=== PATIENT | female | born 1935 | race Caucasian/White ===

== ENCOUNTER 2016-12-25 18:54 | Emergency (ER) | payer MEDICARE, OTHER ==
[2016-12-25 19:47] VITALS: BP 146/84; O2SAT 96
--- NOTE | 2016-12-25 20:04 | ERPHSYRPT ---
- History of Present Illness Time Seen by Provider: 12/25/16 19:56 Source: patient Exam Limitations: no limitations Physician History: The patient is an 81-year-old female with a friend complaining that her cat scratched her lower left leg 3 or 4 days ago and she thinks she was bitten by a spider early this morning near the same area that the cat scratched her. The area is red and warm. She also felt a little chilled today. She doesn't feel well area her past medical history is significant for hypertension and high cholesterol. Method of Injury: other (cat scratch and spider bite) Occurred: days ago (4) Quality: other (red and warm) Severity of Pain-Max: mild Severity of Pain-Current: mild Lower Extremities Pain: hip: left Modifying Factors: Improves With: nothing Associated Symptoms: none Allergies/Adverse Reactions: amoxicillin [Amoxicillin] Allergy (Intermediate, Verified 10/15/15 16:30) facial swelling and flushed metronidazole [From Flagyl] Allergy (Unknown, Verified 10/15/15 18:55) cant rememer Penicillins Allergy (Unknown, Verified 10/15/15 18:55) cant remember Sulfa (Sulfonamide Antibiotics) Allergy (Unknown, Verified 10/15/15 18:55) cant rememeber Home Medications: Albuterol 8 gm Mdi Hfa [Ventolin Hfa MDI] 8 gm IH Q12H PRN PRN 01/04/14 [ History] Aspirin 81 gm Chew [Baby Aspirin 81 mg Chew] 81 mg PO HS 01/04/14 [History ] Guaifenesin [Mucinex] 600 mg PO DAILY PRN PRN 01/04/14 [History] Lovastatin 40 mg PO HS 01/04/14 [History] Meclizine HCl 25 mg [Antivert 25 mg] 25 mg PO DAILY PRN PRN 01/04/14 [ History] Phenylephrine HCl [Nasal [place]] 30 ml NS DAILY PRN PRN 01/04/14 [History] Trimethoprim 100 mg PO HS 01/04/14 [History] Losartan Potassium [Cozaar] 25 mg PO BID 10/15/15 [History] Hx Tetanus, Diphtheria Vaccination/Date Given: Yes Hx Influenza Vaccination/Date Given: No Hx Pneumococcal Vaccination/Date Given: Yes - Review of Systems Constitutional: Chills, No Fever Eyes: No Symptoms Ears, Nose, & Throat: No Symptoms Respiratory: No Cough, No Dyspnea Cardiac: No Chest Pain, No Edema, No Syncope Abdominal/Gastrointestinal: No Abdominal Pain, No Nausea, No Vomiting, No Diarrhea Genitourinary Symptoms: No Dysuria Musculoskeletal: No Back Pain, No Neck Pain Skin: Rash, Skin Lesions Neurological: No Dizziness, No Focal Weakness, No Sensory Changes Psychological: No Symptoms Endocrine: No Symptoms Hematologic/Lymphatic: No Symptoms Immunological/Allergic: No Symptoms All Other Systems: Reviewed and Negative - Past Medical History Pertinent Past Medical History: Yes Neurological History: No Pertinent History ENT History: Cataracts Cardiac History: High Cholesterol, Hypertension, Other Respiratory History: Asthma Endocrine Medical History: No Pertinent History Musculoskeletal History: No Pertinent History GI Medical History: No Pertinent History History: Other Psycho-Social History: No Pertinent History Female Reproductive Disorders: Fibroids Other Medical History: PERICARDICECTOMY 2005; cdiff 09/2015 - Past Surgical History Past Surgical History: Yes Neuro Surgical History: No Pertinent History Cardiac: Cardiac Catheterization, Cardiac Stent Gastrointestinal: No Pertinent History Genitourinary: No Pertinent History Musculoskeletal: No Pertinent History Female Surgical History: Hysterectomy Other Surgical History: pericardectomy. bilateral cataracts - Social History Smoking Status: Never smoker Exposure to second hand smoke: Yes Drug Use: none Patient Lives Alone: No - Nursing Vital Signs Nursing Vital Signs: Initial Vital Signs Temperature 98.7 F Temperature Source Oral Pulse Rate 88 Respiratory Rate 18 Blood Pressure [Right Arm] 146/84 Pain Intensity 0 - Physical Exam General Appearance: alert Eyes, Ears, Nose, Throat Exam: moist mucous membranes Neck Exam: non-tender, supple Cardiovascular/Respiratory Exam: chest non-tender, normal breath sounds, regular rate/rhythm, no respiratory distress Gastrointestinal/Abdominal Exam: non-tender, guarding Back Exam: normal inspection, No vertebral tenderness Hips Exam: bilateral: non-tender Legs Exam: right leg: non-tender, normal inspection, left leg: other (warmth, erythema, 2 healing superficial scratches to anterior distal lower leg.) Knees Exam: bilateral knee: non-tender Ankle Exam: bilateral ankle: non-tender Foot Exam: bilateral foot: non-tender Neuro/Tendon Exam: normal sensation, normal motor functions Mental Status Exam: alert, oriented x 3, cooperative Skin Exam: rash SpO2 Interpretation: normal SpO2: 96 Oxygen Delivery: Room Air - Departure Time of Disposition: 20:08 Departure Disposition: Home Clinical Impression: Cellulitis Condition: Stable Critical Care Time: No Additional Instructions: You have to cat scratches on her left leg with surrounding erythema and warmth consistent with cellulitis and you also have a possible spider bite in the same region. Take doxycycline 100 mg twice a day for 7 days. Follow-up if there is no improvement in 1-2 days. Prescriptions: Doxycycline Hyclate [Vibramycin] 1 cap PO BID #14 capsule
[2016-12-25] MEDS ORDERED: Vibramycin 100 MG PO ONE (20:28)
[2016-12-25] MEDS ORDERED: Vibramycin 100 MG ONE (20:30)
[2016-12-25 20:46] VITALS: PULSE 92
== END 2016-12-25 20:46 | disposition home or self-care (01) ==
LOC: ED 18:54
DX: L03.116 Cellulitis of left lower limb (principal); S80.812A Abrasion, left lower leg, initial encounter; W55.03XA Scratched by cat, initial encounter; I10 Essential (primary) hypertension; E78.00 Pure hypercholesterolemia, unspecified; Z79.899 Other long term (current) drug therapy
CPT/HCPCS: 99283; A9270-GY

== ENCOUNTER 2017-01-01 10:27 | Observation (INO) | payer MEDICARE, OTHER ==
[2017-01-01 11:15] LABS: Mean Corpuscular Hemoglobin 29.9 pg (26-32); Platelet Count 182 K/mm3 (150-450); Red Blood Count 4.11 M/mm3 (4.1-5.4); Red Cell Distribution Width 13.1 % (11.5-14.0); White Blood Count 5.9 K/mm3 (4.0-10.5)
[2017-01-01] MEDS ORDERED: Sodium Chloride 0.9% 500 ML 500 ML IV SCH (11:30)
[2017-01-01 11:35] LABS: ALBUMIN 3.8 g/dL (3.4-5.0); ANION GAP 14.2 MEQ/L (5-15); BILIRUBIN,TOTAL 0.5 mg/dL (0.2-1.0); Carbon Dioxide 25.3 mEq/L (21-32); Potassium 3.9 mEq/L (3.5-5.1); Total Protein 7.3 gm/dL (6.4-8.2)
[2017-01-01] MEDS: TYLENOL 325 MG PO PRN ×2 (11:36→19:45)
[2017-01-01 11:44] LABS: BAND 1 % (0.0-2.0); Eosinophil 3 % (0.00-3.0); Total Cells Counted 100
[2017-01-01 11:45] LABS: Platelet Estimate NORMAL (NORMAL); Toxic Granulation 1+
[2017-01-01] MEDS: PROTONIX 40 MG IV IV SCH (12:15)
[2017-01-01] MEDS: Zofran 4 MG/2 ML VIAL IV PRN (12:15)
--- NOTE | 2017-01-01 12:16 | XRAY ---
Indication: Abdominal pain and weakness. Fever. Comparison: None KUB demonstrates moderate scattered colonic fecal debris throughout. No focal bowel dilatation, obstruction, or free air. Solid organs and osseous structures unremarkable. Impression: Fecal stasis without obstruction.
[2017-01-01] MEDS ORDERED: Dextrose 5% -0.45 NaCl 1000 ML 1,000 ML IV SCH (12:30)
[2017-01-01 14:13] LABS: Bacteria RARE /HPF (NEGATIVE); Bilirubin NEGATIVE (NEGATIVE); Blood 50 Ery/ul (0-5); COMPLETE URINE MICROSCOPIC? YES; Collection Type VOID; Epithelial Cells RARE /HPF (FEW); Glucose NEGATIVE (NEGATIVE); Leukocyte Esterase TRACE (NEGATIVE); WBC 0-2 /HPF (0-5)
[2017-01-01] MEDS ORDERED: Mucinex 600MG ER Tabs PO PRN (17:03)
[2017-01-01] MEDS ORDERED: ANTIVERT 25 MG PO PRN (17:03)
[2017-01-01] MEDS ORDERED: Ventolin Hfa MDI IH PRN (17:03)
[2017-01-01] MEDS ORDERED: PROVENTIL COMMON CANISTER IH PRN (17:08)
[2017-01-01] MEDS: Colace 100 MG PO PRN (19:45)
[2017-01-01] MEDS ORDERED: NON-FORMULARY ITEM (Lovastatin [Lovastatin] 40 MG) PO SCH (22:00)
[2017-01-01] MEDS ORDERED: BABY ASPIRIN 81 MG CHEW PO SCH (22:00)
[2017-01-01] MEDS ORDERED: ECOTRIN 81 MG PO SCH (22:00)
[2017-01-01] MEDS ORDERED: ZOCOR 20MG PO SCH (22:00)
[2017-01-02] MEDS: Colace 100 MG PO PRN (09:02)
[2017-01-02] MEDS: PROTONIX 40 MG IV IV SCH (09:02)
[2017-01-02] MEDS: Zofran 4 MG/2 ML VIAL IV PRN (09:04)
--- NOTE | 2017-01-02 09:05 | PCM.DCORD ---
- Discharge Discharge Date: 01/02/17 Disposition: Home, Self-Care Condition: Fair Prescriptions: New Docusate Sodium 100 mg [Colace 100 MG] 100 mg PO BID PRN PRN #60 capsule PRN Reason: Constipation Losartan Potassium [Cozaar] 25 mg PO QHS #30 tablet PANTOPRAZOLE 40 mg Tablet [Protonix 40MG Tablet] 40 mg PO QAM #30 tab Ondansetron [Zofran Odt] 4 mg PO Q8H PRN #10 tab.rapdis PRN Reason: Nausea Continue Meclizine HCl 25 mg [Antivert 25 mg] 12.5 mg PO DAILY PRN PRN PRN Reason: Dizziness Guaifenesin [Mucinex] 600 mg PO DAILY PRN PRN PRN Reason: Allergies Albuterol 8 gm Mdi Hfa [Ventolin Hfa MDI] 8 gm IH Q12H PRN PRN PRN Reason: Allergies Lovastatin 40 mg PO HS Changed Aspirin 81 gm Chew [Baby Aspirin 81 mg Chew] 81 mg PO QAM #30 tab.chew Discontinued Losartan Potassium [Cozaar] 25 mg PO BID Follow up with: MARGUERITE JOHNSTON [Primary Care Provider] - 1 Week
--- NOTE | 2017-01-02 09:55 | SSS ---
ADMISSION DIAGNOSES: 1) Nausea. 2) Epigastric pain. DISCHARGE DIAGNOSES: 1) NAUSEA. 2) EPIGASTRIC PAIN. 3) CONSTIPATION. HISTORY OF PRESENT ILLNESS: This is an 81 year old patient who presented to my clinic for the first time. In the past she had seen Dr. Arndt but stated that she plans to change to me as her primary care provider. She stated that she had a headache the night before and was feeling weak. She stated that a couple of times that she just felt awful. She had taken some Tylenol for a headache and reported that was better. She reports she has had headaches in the past but not as bad as this one. She also reports that she had nausea but no vomiting. She had eaten a piece of toast just that morning. She reports she has been urinating well and drinking quite a bit of water. She lives alone and had to have a friend bring her this morning. She denies any diarrhea but has some cramping in her abdomen. She recently had been on doxycycline for left lower leg cellulitis that is much better. She reports she stopped taking antibiotics on Friday and had three tablets left. She reports that she had some nausea since Friday and it got worse the night before her admission. She reports that overnight she felt better and that she has been able to drink some fluids and have one stool. She thinks she may be constipated but she took an Imodium on Friday when her stomach was gurgling and on Friday took some Pepto-Bismol. REVIEW OF SYSTEMS: She denies any fever. No cough. No rhinorrhea. She has some mild epigastric pain. No lower extremity edema. She reports the redness on her left lower leg where the cellulitis is has gotten better. No dysuria. PAST MEDICAL HISTORY: She reports a history of sepsis and Clostridium difficile. History of pericardectomy in 2005, hypertension. Her floorhand is Dr. Mitchell. PAST SURGICAL HISTORY: The pericardectomy and hysterectomy. MEDICATIONS: Albuterol 2 puffs every four hours as needed, Mucinex 600 mg p.o. daily as needed, losartan 25 mg p.o. q.h.s., lovastatin 40 mg p.o. q.h.s., meclizine 12.5 mg daily as needed for dizziness. ALLERGIES: AMOXICILLIN, CLINDAMYCIN, FLAGYL, PHENERGAN, SULFA. SOCIAL HISTORY: She lives alone. No tobacco use. FAMILY HISTORY: Noncontributory. PHYSICAL EXAMINATION: VITAL SIGNS: Temperature current 98.0F, temperature max 98.9F, heart rate 62 to 81, respiratory rate 17 to 20, blood pressure 115 to 134 over 59 to 64, weight 69.5 kg. Oxygen saturation 93 to 97% on room air. GENERAL: The patient is a pleasant talkative lady lying in bed and in no acute distress. CVS: She has a regular rate and rhythm. No murmurs, gallops or rubs are appreciated. CHEST: Clear to auscultation bilaterally. No crackles or wheezes. ABDOMEN: Mild epigastric tenderness. Normal bowel sounds. Soft. No guarding. No rigidity. EXTREMITIES: No clubbing, cyanosis or edema. Her left lower leg has a small scab with very minimal erythema approximately 2 mm around the scab. No induration and no drainage. LABORATORY DATA AND TESTS: Her white blood cell count was normal at 5.9. Sodium 134, BUN 21. Amylase and lipase within normal limits. UA was negative. She had a KUB that was read as fecal stasis without obstruction. HOSPITAL COURSE: 1) NAUSEA: She was getting Zofran as needed for the nausea and given a bolus of IV fluids and then maintenance fluid. She has been able to take clear liquids and states she is feeling better although not 100%. She is agreeable to going home on proton pump inhibitor and Zofran as needed for nausea. She was given Protonix 40 mg IV daily here and Zofran IV as needed here. She did have a stool yesterday. 2) EPIGASTRIC PAIN: She may have some gastritis. I have asked her to change her aspirin to 81 mg in the morning instead of taking it in the evening before bed and she agreeable to this, will also add the proton pump inhibitor. She reports she has had colonoscopies in the past and is not interested in invasive procedures at this time. 3) CONSTIPATION: Will continue Colace as needed. DISPOSITION: The patient is to follow up with me in the clinic this coming week. DISCHARGE MEDICATIONS: Docusate 100 mg p.o. b.i.d. as needed, losartan 25 mg p.o. q.h.s., pantoprazole 40 mg p.o. q.a.m., Zofran 4 mg p.o. every 8 hours as needed, meclizine 12.5 mg daily as needed, guaifenesin 600 mg p.o. daily, Albuterol every 12 hours as needed, lovastatin 40 mg p.o. q.h.s., aspirin 81 mg p.o. q.a.m.
[2017-01-02 10:46] VITALS: BP 177/72; PULSE 68; O2SAT 94
== END 2017-01-02 11:00 | disposition home or self-care (01) ==
LOC: MED SURG 10:28
PROVIDERS: ADMIT Internal Medicine; ATTEND Internal Medicine
DX: R11.0 Nausea (principal); R10.13 Epigastric pain; K59.00 Constipation, unspecified; I10 Essential (primary) hypertension; Z79.899 Other long term (current) drug therapy
CPT/HCPCS: 36415; 74000; 80053; 81000; 82150; 83690; 85025; 93005; G0378; J2405; A9270-GY

== ENCOUNTER 2019-05-07 13:30 | Observation (INO) | payer MEDICARE, OTHER ==
[2019-05-07] MEDS ORDERED: Sodium Chloride 0.9% 1000 ML 1,000 ML IV STA (14:47)
[2019-05-07] MEDS ORDERED: Zofran 4 MG/2 ML VIAL IV ONE (14:47)
[2019-05-07] MEDS ORDERED: Sodium Chloride 0.9% 1000 ML 1,000 ML ONE ×2 (14:52→20:46)
[2019-05-07] MEDS ORDERED: Zofran 4 MG/2 ML VIAL ONE (14:52)
[2019-05-07 15:50] LABS: Absolute Neutrophil Ct (ANC) 10.04 (1.4-6.9); BASOPHIL % 0.1 % (0.0-0.4); Basophil (Absolute #) 0.01 (0-0.4); Eosinophil % 0.1 % (0.00-5.0); Eosinophil (Absolute #) 0.01 (0-0.5); Hematocrit 35.6 % (35-47); Hemoglobin 11.8 gm/dl (12.0-16.0); Lymphocyte (Absolute #) 0.67 (1.0-4.6); Lymphocytes % 5.9 % (24.0-44.0); Mean Cell Volume 92.2 fl (78-100); Mean Corpuscular Hgb Concent. 33.1 g/dl (32-36); Mean Platelet Volume 10.5 fl (6-9.5); Monocyte (Absolute #) 0.58 (0.0-1.3); Monocytes % 5.1 % (0.0-12.0); Neutrophil % 88.8 % (36.0-66.0); Platelet Count 210 K/mm3 (150-450); Red Blood Count 3.86 M/mm3 (4.1-5.4); Red Cell Distribution Width 13.1 % (11.5-14.0); White Blood Count 11.3 K/mm3 (4.0-10.5)
--- NOTE | 2019-05-07 15:51 | ERPHSYRPT ---
- History of Present Illness Time Seen by Provider: 05/07/19 13:43 Historian: patient Exam Limitations: no limitations Patient Subjective Stated Complaint: "belly pains that come and go. it hurts really bad when it comes on. Also lots of liquid stools today. hx cdiff." Triage Nursing Assessment: pt to ED from [facility] via wheelchair. assisted into gown and to bed. pt ambulates with assist x1. BSC placed in room for frequent bathroom visits. AxOx3 and communcaites regularly. skin is warm pink and dry. lung sounds clear and equal bilat. heart sounds clear. bowel sounds in all 4 quads. LBM multiple today, all "liquid." hx cdiff 2015. denies nausea, last episode emesis 0630 this am. Pt also states new cat bite to L lower arm that occurred Fri morning. pt states dressing needs changed today. pt has kept area clean and dry and applied abx ointment since Fri. Physician History: This's a 84 yr old pt. presenting to the ED with multiple cmplaints 1) Vomiting, diarrhoea and abdominal cramping x 1 day - states she ate frozen chilli yesterday, following which pt. developed vomiting and diarrhoea. States she has vomited and has had loose watery stools innumerable times . Denies blood in vomitus or stools. states she has abdominal cramping- relieved with diarrhoea. - Pt. states she lives by herself and has not had anything to eat or drink all day - Is not on blood thinners - denies any urinary symptoms 2) Rose bite on her right ankle last friday - states she had a cat bite a few months ago and was placed on clindamycin which gave her c.diff and she was off work for several months, hence she got scared and did not seek medical care. 3) Reports she fell and Timing/Duration: yesterday Activities at Onset: none Quality: other (cramping) Abdominal Pain Onset Location: suprapubic Pain Radiation: no radiation Severity of Pain-Max: none Severity of Pain-Current: none Modifying Factors: Improves With: defecating Associated Symptoms: weakness Previous symptoms: no prior history Allergies/Adverse Reactions: amoxicillin [Amoxicillin] Allergy (Intermediate, Verified 05/07/19 13:53) facial swelling and flushed promethazine [From Phenergan] Allergy (Mild, Verified 05/07/19 17:39) metronidazole [From Flagyl] Allergy (Unknown, Verified 05/07/19 13:53) cant rememer Penicillins Allergy (Unknown, Verified 05/07/19 13:53) cant remember Sulfa (Sulfonamide Antibiotics) Allergy (Unknown, Verified 05/07/19 13:53) cant rememeber Home Medications: Lovastatin 40 mg PO HS 01/04/14 [History] Acetaminophen 500 mg [Tylenol Extra Strength 500 mg] 500 mg PO Q4H PRN PRN 05/07/19 [History] Losartan Potassium [Cozaar] 25 mg PO BID 05/07/19 [History] Sodium Chloride/Sod Bicarb [Nasa Mist Saline [place]] 1 spray INTRANASAL DAILY [History] Hx Tetanus, Diphtheria Vaccination/Date Given: Yes Hx Influenza Vaccination/Date Given: Yes Hx Pneumococcal Vaccination/Date Given: Yes Immunizations Up to Date: Yes - Review of Systems Constitutional: Weakness Eyes: No Symptoms Ears, Nose, & Throat: No Symptoms Respiratory: No Symptoms Cardiac: No Symptoms Abdominal/Gastrointestinal: Vomiting, Diarrhea, Appetite Changes Genitourinary Symptoms: No Symptoms Musculoskeletal: No Symptoms Skin: Other (cat bite right ankle) Neurological: No Symptoms Psychological: No Symptoms Endocrine: No Symptoms Hematologic/Lymphatic: No Symptoms Immunological/Allergic: No Symptoms All Other Systems: Reviewed and Negative - Past Medical History Pertinent Past Medical History: Yes Neurological History: No Pertinent History ENT History: Cataracts Cardiac History: High Cholesterol, Hypertension, Other Respiratory History: Asthma Endocrine Medical History: No Pertinent History Musculoskeletal History: No Pertinent History GI Medical History: No Pertinent History History: Other Psycho-Social History: No Pertinent History Female Reproductive Disorders: Fibroids Other Medical History: PERICARDICECTOMY 2005; cdiff 09/2015 - Past Surgical History Past Surgical History: Yes Neuro Surgical History: No Pertinent History Cardiac: Cardiac Catheterization, Cardiac Stent Gastrointestinal: No Pertinent History Genitourinary: No Pertinent History Musculoskeletal: No Pertinent History Female Surgical History: Hysterectomy Other Surgical History: pericardectomy. bilateral cataracts - Social History Smoking Status: Never smoker Exposure to second hand smoke: No Drug Use: none Patient Lives Alone: Yes - Female History Hx Last Menstrual Period: post menopausal - Nursing Vital Signs Nursing Vital Signs: Initial Vital Signs Temperature 98.1 F 05/07/19 13:38 Pulse Rate 81 05/07/19 13:38 Respiratory Rate 22 05/07/19 13:38 Blood Pressure 166/76 05/07/19 13:38 O2 Sat by Pulse Oximetry 98 05/07/19 13:38 Pain Scale Pain Intensity 5 - Physical Exam General Appearance: no apparent distress Eye Exam: PERRL/EOMI Ears, Nose, Throat Exam: normal ENT inspection Neck Exam: normal inspection Respiratory Exam: normal breath sounds Cardiovascular Exam: regular rate/rhythm Gastrointestinal/Abdomen Exam: soft, normal bowel sounds, No tenderness, No distention, No mass Pelvic Exam: not done Rectal Exam: deferred Back Exam: normal inspection Extremity Exam: penetrations (cat bite [place] with mild erythema) Neurologic Exam: alert, oriented x 3, cooperative, condenser winder II-XII nml as tested, normal mood/affect, nml station & gait Skin Exam: rash, abrasion (on right arm from fall) Lymphatic Exam: No adenopathy SpO2 Interpretation: normal SpO2: 95 O2 Delivery: Room Air Ordered Tests: Active Orders 24 hr Category Date Time Status Code Status Order ROUTINE Care 05/07/19 17:02 Active IV Care Q6H Care 05/07/19 17:02 Active IV Insertion STAT Care 05/07/19 14:[address] in Observation ROUTINE Care 05/07/19 17:02 Active CBC W DIFF Stat Lab 05/07/19 15:45 Completed CMP Stat Lab 05/07/19 15:45 Completed Transfer Order Routine Transfer 05/07/19 Completed Medication Summary Generic Name Dose Route Start Last Admin Trade Name Freq PRN Reason Stop Dose Admin Acetaminophen 650 mg 05/07/19 17:36 Tylenol 325 Mg PO 06/06/19 17:35 Q6H PRN PRN PAIN Acetaminophen 500 mg 05/07/19 19:43 Tylenol Extra Strength 500 Mg PO 06/06/19 19:42 Q4HPRN PRN pain/fever Losartan Potassium 25 mg 05/07/19 22:00 Cozaar 50 Mg PO 06/06/19 21:59 BID ZION Discontinued Medications Generic Name Dose Route Start Last Admin Trade Name Freq PRN Reason Stop Dose Admin Sodium Chloride 1,000 mls @ 999 mls/hr 05/07/19 14:47 05/07/19 16:21 Sodium Chloride 0.9% 1000 Ml IV 05/07/19 15:47 Infused .Q1H1M STA Infusion Sodium Chloride Confirm 05/07/19 14:52 Sodium Chloride 0.9% 1000 Ml Administered 05/07/19 14:53 Dose 1,000 mls @ ud .ROUTE .STK-MED ONE Ondansetron HCl 4 mg 05/07/19 14:47 05/07/19 15:06 Zofran 4 Mg/2 Ml Vial IV 05/07/19 14:48 4 mg STAT ONE Administration Ondansetron HCl Confirm 05/07/19 14:52 Zofran 4 Mg/2 Ml Vial Administered 05/07/19 14:53 Dose 4 mg .ROUTE .STK-MED ONE Lab/Rad Data: Laboratory Result Diagrams 05/07/19 15:45 05/07/19 15:45 Laboratory Results 05/07/19 05/07/19 Range/Units 15:45 15:45 WBC 11.3 H (4.0-10.5) K/mm3 RBC 3.86 L (4.1-5.4) M/mm3 Hgb 11.8 L (12.0-16.0) gm/dl Hct 35.6 (35-47) % MCV 92.2 (78-100) fl MCH 30.5 (26-32) pg MCHC 33.1 (32-36) g/dl RDW 13.1 (11.5-14.0) % Plt Count 210 (150-450) K/mm3 MPV 10.5 H (6-9.5) fl Gran % 88.8 H (36.0-66.0) % Eos # (Auto) 0.01 (0-0.5) Absolute Lymphs (auto) 0.67 L (1.0-4.6) Absolute Monos (auto) 0.58 (0.0-1.3) Lymphocytes % 5.9 L (24.0-44.0) % Monocytes % 5.1 (0.0-12.0) % Eosinophils % 0.1 (0.00-5.0) % Basophils % 0.1 (0.0-0.4) % Absolute Granulocytes 10.04 H (1.4-6.9) Basophils # 0.01 (0-0.4) Sodium 141 (137-145) mmol/L Potassium 4.7 (3.5-5.1) mmol/L Chloride 109 H (98-107) mmol/L Carbon Dioxide 22 (22-30) mmol/L Anion Gap 14.1 (5-15) MEQ/L BUN 26 H (7-17) mg/dL Creatinine 1.04 (0.52-1.04) mg/dL Estimated GFR 53.5 ML/MIN Glucose 99 (74-106) mg/dL Calcium 10.3 H (8.4-10.2) mg/dL Total Bilirubin 0.70 (0.2-1.3) mg/dL AST 39 H (14-36) U/L ALT 19 (0-35) U/L Alkaline Phosphatase 75 (38-126) U/L Serum Total Protein 7.3 (6.3-8.2) g/dL Albumin 4.1 (3.5-5.0) g/dL - Progress Progress: improved Progress Note: 05/07/19 20:36 patinet seen and examined VSS IVF started and pt refused pain meds and nausea meds cbc showed wbc ct 11., Hb 11.8 CMP - WNL pt. admitted for acute GE, decreased oral intake, cat bite rx - Departure Departure Disposition: Observation Clinical Impression: Acute gastroenteritis, Decreased oral intake, Abrasion of right arm, Cat bite of right ankle Condition: Stable Critical Care Time: No
[2019-05-07 16:00] LABS: Mean Corpuscular Hemoglobin 30.5 pg (26-32)
[2019-05-07 16:07] LABS: ALBUMIN 4.1 g/dL (3.5-5.0); ANION GAP 14.1 MEQ/L (5-15); BILIRUBIN,TOTAL 0.7 mg/dL (0.2-1.3); Calcium 10.3 mg/dL (8.4-10.2); Creatinine 1 1.04 mg/dL (0.52-1.04); Potassium 4.7 mmol/L (3.5-5.1); Total Protein 7.3 g/dL (6.3-8.2)
[2019-05-07] MEDS ORDERED: TYLENOL EXTRA STRENGTH 500 MG PO PRN (19:43)
[2019-05-07] MEDS: TYLENOL 325 MG PO PRN (20:50)
[2019-05-07] MEDS ORDERED: Zofran 4 MG/2 ML VIAL IV PRN (21:23)
[2019-05-07] MEDS: Sodium Chloride 0.9% 1000 ML 1,000 ML IV SCH (21:29)
[2019-05-07] MEDS: Cozaar 50 MG PO SCH (21:29)
[2019-05-07 22:54] LABS: Appearance SLIGHTLY CLOUDY (CLEAR); Bacteria RARE /HPF (NEGATIVE); Bilirubin NEGATIVE (NEGATIVE); Blood SMALL Ery/ul (0-5); Epithelial Cells RARE /HPF (FEW); Glucose NEGATIVE (NEGATIVE); Ketones NEGATIVE (NEGATIVE); Leukocyte Esterase LARGE (NEGATIVE); Mucus SLIGHT /HPF (NEGATIVE); Nitrite NEGATIVE (NEGATIVE); Protein,Urine Dip NEGATIVE (Negative); Specific Gravity 1.018 (1.005-1.025); Urobilinogen NEGATIVE mg/dL (0-1); WBC 26-50 /HPF (0-5)
[2019-05-08 06:01] LABS: Absolute Neutrophil Ct (ANC) 4.67 (1.4-6.9); BASOPHIL % 0.2 % (0.0-0.4); Basophil (Absolute #) 0.01 (0-0.4); Eosinophil % 1.3 % (0.00-5.0); Eosinophil (Absolute #) 0.08 (0-0.5); Hematocrit 32.7 % (35-47); Hemoglobin 10.4 gm/dl (12.0-16.0); Lymphocyte (Absolute #) 0.94 (1.0-4.6); Lymphocytes % 14.9 % (24.0-44.0); Mean Cell Volume 94.2 fl (78-100); Mean Corpuscular Hgb Concent. 31.8 g/dl (32-36); Mean Platelet Volume 10.9 fl (6-9.5); Monocyte (Absolute #) 0.61 (0.0-1.3); Monocytes % 9.7 % (0.0-12.0); Neutrophil % 73.9 % (36.0-66.0); Platelet Count 179 K/mm3 (150-450); Red Blood Count 3.47 M/mm3 (4.1-5.4); Red Cell Distribution Width 13.5 % (11.5-14.0); White Blood Count 6.3 K/mm3 (4.0-10.5)
[2019-05-08 06:07] LABS: Mean Corpuscular Hemoglobin 29.9 pg (26-32)
[2019-05-08 06:16] LABS: ANION GAP 13.2 MEQ/L (5-15); Calcium 8.9 mg/dL (8.4-10.2); Creatinine 1 1.01 mg/dL (0.52-1.04); Potassium 3.9 mmol/L (3.5-5.1)
[2019-05-08] MEDS: Cozaar 50 MG PO SCH ×2 (09:29→21:57)
[2019-05-08] MEDS: OCEAN Nasal Spray NS SCH ×3 (09:30→15:14)
[2019-05-08] MEDS: TYLENOL 325 MG PO PRN ×3 (09:38→22:01)
[2019-05-08] MEDS: Sodium Chloride 0.9% 1000 ML 1,000 ML IV SCH ×2 (09:53→22:39)
[2019-05-08] MEDS ORDERED: SODIUM BICARBONATE INTRANASAL SCH (10:00)
[2019-05-08] MEDS ORDERED: SODIUM CHLORIDE INTRANASAL SCH (10:00)
[2019-05-08] MEDS ORDERED: NON-FORMULARY ITEM (Lovastatin [Lovastatin] 40 MG) PO SCH (22:00)
[2019-05-08] MEDS ORDERED: ZOCOR 20MG PO SCH (22:00)
[2019-05-09 05:04] LABS: Absolute Neutrophil Ct (ANC) 2.44 (1.4-6.9); BASOPHIL % 0.2 % (0.0-0.4); Basophil (Absolute #) 0.01 (0-0.4); Eosinophil (Absolute #) 0.26 (0-0.5); Hemoglobin 10.4 gm/dl (12.0-16.0); Lymphocyte (Absolute #) 1.54 (1.0-4.6); Lymphocytes % 29.7 % (24.0-44.0); Mean Cell Volume 95.9 fl (78-100); Mean Corpuscular Hemoglobin 30.2 pg (26-32); Mean Corpuscular Hgb Concent. 31.5 g/dl (32-36); Mean Platelet Volume 10.6 fl (6-9.5); Monocyte (Absolute #) 0.93 (0.0-1.3); Neutrophil % 47.1 % (36.0-66.0); Platelet Count 174 K/mm3 (150-450); Red Blood Count 3.44 M/mm3 (4.1-5.4); Red Cell Distribution Width 13.7 % (11.5-14.0); White Blood Count 5.2 K/mm3 (4.0-10.5)
[2019-05-09 05:18] LABS: ANION GAP 10.3 MEQ/L (5-15); BLOOD UREA NITROGEN 14 mg/dL (7-17); CHLORIDE 113 mmol/L (98-107); Carbon Dioxide 22 mmol/L (22-30); Creatinine 1 0.88 mg/dL (0.52-1.04); Glucose 91 mg/dL (74-106); SODIUM 141 mmol/L (137-145)
[2019-05-09] MEDS: TYLENOL 325 MG PO PRN (06:54)
[2019-05-09] MEDS: Cozaar 50 MG PO SCH (09:32)
[2019-05-09] MEDS: OCEAN Nasal Spray NS SCH (09:33)
[2019-05-09 12:24] VITALS: BP 135/63; PULSE 69; O2SAT 98
[2019-05-09 14:11] LABS: Adenovirus F 40/41 NEGATIVE (NEGATIVE); Astrovirus NEGATIVE (NEGATIVE); C. Difficile Organism NEGATIVE (NEGATIVE); Campylobacter NEGATIVE (NEGATIVE); Cryptosporidium NEGATIVE (NEGATIVE); Cyclospora cayentanensis NEGATIVE (NEGATIVE); Entamoeaba histolytica NEGATIVE (NEGATIVE); Enteroaggregative E.coli NEGATIVE (NEGATIVE); Enteropathogenic E.coli NEGATIVE (NEGATIVE); Enterotoxigenic E.coli NEGATIVE (NEGATIVE); Giardia lamblia NEGATIVE (NEGATIVE); Norovirus GI/GII POSITIVE (NEGATIVE); Plesiomonas shigelloides NEGATIVE (NEGATIVE); Rotavirus A NEGATIVE (NEGATIVE); Salmonella NEGATIVE (NEGATIVE); Sapovirus NEGATIVE (NEGATIVE); Shiga-like toxin prod.E.coli NEGATIVE (NEGATIVE); Vibrio NEGATIVE (NEGATIVE); Vibrio cholerae NEGATIVE (NEGATIVE); Yersinia enterocolitica NEGATIVE (NEGATIVE)
[2019-05-09] MEDS ORDERED: Vibramycin 100 MG PO ONE (14:20)
--- NOTE | 2019-05-09 14:22 | PCM.DCORD ---
- Discharge Discharge Date: 05/09/19 Disposition: Home, Self-Care Condition: Fair Prescriptions: New Doxycycline Hyclate 100 mg [Vibramycin 100 MG] 100 mg PO BID #13 tab Continue Lovastatin 40 mg PO HS Sodium Chloride/Sod Bicarb [Nasa Mist Saline [place]] 1 spray INTRANASAL DAILY Losartan Potassium [Cozaar] 25 mg PO BID Acetaminophen 500 mg [Tylenol Extra Strength 500 mg] 500 mg PO Q4H PRN PRN PRN Reason: Pain Follow up with: JULY ZIEGLER DO [Primary Care Provider] - 1 Week
--- NOTE | 2019-05-09 14:26 | PCM.NOTE ---
Date and Time: 05/09/19 1422 Subjective Assessment: Patient reports some continued soreness around cat bite. She does not plan to get rid of her cat but will not let him in the bathroom when she is in there. She reports her diarrhea is much better. She desires to go home today. Objective Exam General Appearance: no apparent distress Neurologic Exam: alert, cooperative, normal mood/affect Skin Exam: normal color, warm, other (right ankle with tendnerness and redness near one of the cat bite wounds; skin tear x 3 of right forearm with largest 2 x 2 cm with good granulation tissue and no surrounding erythema.) Respiratory Exam: normal breath sounds, lungs clear, No crackles/rales, No rhonchi, No wheezing Cardiovascular Exam: regular rate/rhythm, normal heart sounds, No murmur, No friction rub, No gallop Gastrointestinal/Abdomen Exam: soft, normal bowel sounds, other (very mild tenderness), No distention, No mass, No guarding Extremity Exam: other (no c/c/e) OBJECTIVE DATA Vital Signs: Vital Signs - 24 hr Temp Pulse Resp BP Pulse Ox 05/09/19 12:00 97.9 F 69 20 135/63 98 05/09/19 08:00 97.9 F 71 16 143/65 97 05/09/19 04:15 97.7 F 69 22 140/63 94 L 05/09/19 00:02 98.5 F 77 20 136/62 96 05/08/19 20:15 97.8 F 75 18 140/64 95 05/08/19 17:29 98.3 F 71 16 135/63 98 Pain Assessment - Last Documented Pain Intensity 6 Pain Scale Used [facility] Intake and Output: Intake & Output 05/07/19 05/08/19 05/09/19 05/10/19 06:59 06:59 06:59 06:59 Intake Total 1359 2918 Output Total 250 800 Balance 1109 2118 Weight 68.039 kg Lab Results: Lab Results-Last 24 Hours 05/09/19 05/09/19 05/09/19 Range/Units 05:05 05:05 09:10 WBC 5.2 (4.0-10.5) K/mm3 RBC 3.44 L (4.1-5.4) M/mm3 Hgb 10.4 L (12.0-16.0) gm/dl Hct 33.0 L (35-47) % MCV 95.9 (78-100) fl MCH 30.2 (26-32) pg MCHC 31.5 L (32-36) g/dl RDW 13.7 (11.5-14.0) % Plt Count 174 (150-450) K/mm3 MPV 10.6 H (6-9.5) fl Gran % 47.1 (36.0-66.0) % Eos # (Auto) 0.26 (0-0.5) Absolute Lymphs (auto) 1.54 (1.0-4.6) Absolute Monos (auto) 0.93 (0.0-1.3) Lymphocytes % 29.7 (24.0-44.0) % Monocytes % 18.0 H (0.0-12.0) % Eosinophils % 5.0 (0.00-5.0) % Basophils % 0.2 (0.0-0.4) % Absolute Granulocytes 2.44 (1.4-6.9) Basophils # 0.01 (0-0.4) Sodium 141 (137-145) mmol/L Potassium 4.0 (3.5-5.1) mmol/L Chloride 113 H (98-107) mmol/L Carbon Dioxide 22 (22-30) mmol/L Anion Gap 10.3 (5-15) MEQ/L BUN 14 (7-17) mg/dL Creatinine 0.88 (0.52-1.04) mg/dL Estimated GFR > 60.0 ML/MIN Glucose 91 (74-106) mg/dL Calcium 9.0 (8.4-10.2) mg/dL Stl C. cayetanensis PCR NEGATIVE (NEGATIVE) Stl Adenov F 40/41 PCR NEGATIVE (NEGATIVE) Stool Astrovirus (PCR) NEGATIVE (NEGATIVE) Stool Cryptosporidium PCR NEGATIVE (NEGATIVE) Stool EPEC (PCR) NEGATIVE (NEGATIVE) Stool EAEC (PCR) NEGATIVE (NEGATIVE) Stl E. histolytica PCR NEGATIVE (NEGATIVE) Stl P. shigelloides PCR NEGATIVE (NEGATIVE) Stool Sapovirus (PCR) NEGATIVE (NEGATIVE) St Y.enterocolitica PCR NEGATIVE (NEGATIVE) Stool Vibrio (PCR) NEGATIVE (NEGATIVE) Stl Vibrio cholerae PCR NEGATIVE (NEGATIVE) Stl Norovirus GI/GII PCR POSITIVE A (NEGATIVE) Campylobacter (PCR) NEGATIVE (NEGATIVE) C. difficile (PCR) NEGATIVE (NEGATIVE) Enterotoxigenic E. coli NEGATIVE (NEGATIVE) E.coli Shiga Toxins NEGATIVE (NEGATIVE) Giardia lamblia NEGATIVE (NEGATIVE) Rotavirus A (PCR) NEGATIVE (NEGATIVE) Salmonella (PCR) NEGATIVE (NEGATIVE) Shigella (PCR) NEGATIVE (NEGATIVE) Assessment/Plan (1) Acute gastroenteritis Current Visit: Yes Status: Acute Assessment & Plan: GI panel positive for Norovirus. Patient reports diarrhea is better. Continue to encourage fluids. Discharge to home. Patient declines home health care. Code(s): K52.9 - NONINFECTIVE GASTROENTERITIS AND COLITIS, UNSPECIFIED (2) Cat bite of right ankle Current Visit: Yes Status: Acute Assessment & Plan: Patient agreeable to taking doxycycline for cat bite and uti. Code(s): S91.051A - OPEN BITE, RIGHT ANKLE, INITIAL ENCOUNTER; W55.01XA - BITTEN BY CAT, INITIAL ENCOUNTER (3) UTI (urinary tract infection) Current Visit: Yes Status: Acute Assessment & Plan: Urine culture growing gram neg organism, starting doxycycline. Code(s): N39.0 - URINARY TRACT INFECTION, SITE NOT SPECIFIED (4) Hypertension Current Visit: Yes Status: Acute Assessment & Plan: Well controlled. Code(s): I10 - ESSENTIAL (PRIMARY) HYPERTENSION (5) Abrasion of right arm Current Visit: Yes Status: Acute Assessment & Plan: Continue to keep clean, cry and covered. Code(s): S40.811A - ABRASION OF RIGHT UPPER ARM, INITIAL ENCOUNTER
[2019-05-09] MEDS ORDERED: Vibramycin 100 MG PO SCH (22:00)
--- NOTE | 2019-05-10 11:48 | HP ---
HISTORY OF PRESENT ILLNESS: This is an 84 year-old patient of Dr. Royal who presented to the emergency department from her clinic. The patient reports she started feeling bad around noon time when she had eaten some frozen chili that she had reheated. She reports she started to have diarrhea around 0130 hours on Friday that continued until about 1330 hours in the afternoon yesterday. She reports her abdomen continues to be tender. She is complaining of abdominal pain when she was in the emergency department. She reports Friday morning her 12 year old cat who is usually in the bathroom with her when she showers bit her right lower leg causing her to fall against the metal frame of her shower and hit her right arm. She did not fall all the way to the ground. This did cause skin tear to her right arm. She did not seek medical treatment for the cat bite due to history of developing Clostridium difficile when given clindamycin for a cat bite in the past. The patient reports she saw Dr. Thomas in [place] when she had the Clostridium difficile and he diagnosed her as well with irritable bowel syndrome. The patient reports she continues to feel cold like she has a fever. She reports she is taking some fluids. No nausea. She is passing gas and belching now. REVIEW OF SYSTEMS: As noted in history of present illness. MEDICATIONS: Please see the home medication reconciliation form which I have reviewed. ALLERGIES: AMOXICILLIN. PROMETHAZINE. PENICILLIN. METRONIDAZOLE. SULFA. PAST MEDICAL HISTORY: Irritable bowel syndrome. Hypertension. PAST SURGICAL HISTORY: Noncontributory. SOCIAL HISTORY: She lives alone. She reports she has a son who lives in town. FAMILY HISTORY: Noncontributory. PHYSICAL EXAMINATION: VITAL SIGNS: Temperature current 98.7F, heart rate 80, respiratory rate 16, blood pressure 108/52, weight 68 kg. Oxygen saturation 97% on room air. GENERAL: The patient is a pleasant lady lying in bed in no acute distress. CVS: She has a regular rate and rhythm. No murmurs, gallops or rubs. CHEST: Clear to auscultation bilaterally. No crackles or wheezes. ABDOMEN: Mildly tender throughout. No guarding. No rigidity. Hyperactive bowel sounds. EXTREMITIES: She has a dressing over her right forearm and right lower leg. There are pictures of these wounds in her chart. She has a skin tear to her right forearm and a cat bite to her right lower leg that does not have any surrounding erythema. LABORATORY DATA AND TESTS: Her white blood cell count was 11.3 on admission now 6.3. Hemoglobin 10.4, PLT count was normal. BMP revealed chloride level of 110, BUN 20. UA in the emergency room about 26 to 50 white blood cells. Urine culture in lab. ASSESSMENT AND PLAN: 1) ABDOMINAL PAIN: Will continue with IV fluids, Tylenol as needed for pain as she does not want to have anything stronger than this. This may be due to the diarrhea and a combination also of irritable bowel from the chili that she ate. 2) CAT BITE: Will make sure that this is reported in the emergency department and place a report to the health department. It does not appear infected and she is adamant that she does not want to do something about it. 3) HYPERTENSION: Will continue with her home antihypertensive.
== END 2019-05-09 16:00 | disposition home or self-care (01) ==
LOC: ED 13:30 → MED SURG 16:54
PROVIDERS: ADMIT Family Medicine; ATTEND Family Medicine
DX: K52.9 Noninfective gastroenteritis and colitis, unspecified (principal); S91.051A Open bite, right ankle, initial encounter; W55.01XA Bitten by cat, initial encounter; N39.0 Urinary tract infection, site not specified; S40.811A Abrasion of right upper arm, initial encounter; I10 Essential (primary) hypertension; R10.9 Unspecified abdominal pain; K58.9 Irritable bowel syndrome, unspecified; Z86.19 Personal history of other infectious and parasitic diseases; Z79.899 Other long term (current) drug therapy
CPT/HCPCS: 36000; 36415; 80048; 80053; 81001; 85025; 87077; 87086; 87186; 87507; 96360; 96374; 99285; G0378; J2405; A9270-GY

== ENCOUNTER 2021-07-06 13:44 | Observation (INO) | payer MEDICARE, OTHER ==
[2021-07-06 14:40] LABS: INFLUENZA A NEGATIVE (NEGATIVE); INFLUENZA B NEGATIVE (NEGATIVE); RESPIRATORY SYNCTIAL VIRUS NEGATIVE (Negative); SARS-CoV-2 Xpert Express NEGATIVE (NEGATIVE)
[2021-07-06] MEDS ORDERED: Zofran 4 MG/2 ML VIAL IV PRN (14:41)
[2021-07-06] MEDS: Sodium Chloride 0.9% W/ 20 mEq KCl/LITER 1,000 ML IV SCH (14:52)
[2021-07-06] MEDS: TYLENOL 325 MG PO PRN (19:38)
[2021-07-06] MEDS: ZOCOR 20MG PO SCH (21:03)
[2021-07-06] MEDS: ENTRESTO 49 MG-51 MG TABLET PO SCH (21:03)
[2021-07-06] MEDS ORDERED: NON-FORMULARY ITEM (Sacubitril/Valsartan [Entresto 24 Mg-26 Mg Tablet] 1 EACH Tablet) PO SCH (22:00)
[2021-07-07] MEDS: Sodium Chloride 0.9% W/ 20 mEq KCl/LITER 1,000 ML IV SCH ×3 (00:43→18:05)
[2021-07-07] MEDS: TYLENOL 325 MG PO PRN ×2 (04:51→18:08)
[2021-07-07 06:11] LABS: Basophil (Absolute #) 0.01 (0-0.4); Eosinophil % 2.9 % (0.00-5.0); Eosinophil (Absolute #) 0.29 (0-0.5); Hematocrit 33.1 % (35-47); Hemoglobin 10.8 gm/dl (12.0-16.0); Lymphocyte (Absolute #) 1.41 (1.0-4.6); Lymphocytes % 13.9 % (24.0-44.0); Mean Cell Volume 92.7 fl (78-100); Mean Corpuscular Hemoglobin 30.3 pg (26-32); Mean Corpuscular Hgb Concent. 32.6 g/dl (32-36); Mean Platelet Volume 10.5 fl (7.5-11.0); Monocyte (Absolute #) 0.73 (0.0-1.3); Monocytes % 7.2 % (0.0-12.0); Neutrophil % 75.9 % (36.0-66.0); Platelet Count 194 K/mm3 (150-450); Red Blood Count 3.57 M/mm3 (4.1-5.4); Red Cell Distribution Width 12.5 % (11.5-14.0); White Blood Count 10.1 K/mm3 (4.0-10.5)
[2021-07-07 06:40] LABS: ANION GAP 12.8 MEQ/L (5-15); Calcium 9.5 mg/dL (8.4-10.2); Creatinine 1 0.94 mg/dL (0.52-1.04); EST GLOMERULAR FILTRATION RATE 59.9 ML/MIN; MAGNESIUM 1.6 mg/dL (1.6-2.3); Potassium 4.5 mmol/L (3.5-5.1)
[2021-07-07] MEDS: ENTRESTO 49 MG-51 MG TABLET PO SCH ×2 (09:20→21:07)
[2021-07-07] MEDS: ECOTRIN 81 MG PO SCH (09:20)
[2021-07-07] MEDS: ZOCOR 20MG PO SCH (21:09)
[2021-07-08] MEDS: Sodium Chloride 0.9% W/ 20 mEq KCl/LITER 1,000 ML IV SCH (03:42)
[2021-07-08] MEDS: TYLENOL 325 MG PO PRN (05:45)
[2021-07-08 06:34] LABS: Absolute Neutrophil Ct (ANC) 8.89 (1.4-6.9); Basophil (Absolute #) 0.02 (0-0.4); Eosinophil % 2.4 % (0.00-5.0); Eosinophil (Absolute #) 0.27 (0-0.5); Hemoglobin 9.9 gm/dl (12.0-16.0); Lymphocyte (Absolute #) 1.36 (1.0-4.6); Lymphocytes % 11.9 % (24.0-44.0); Mean Cell Volume 93.4 fl (78-100); Mean Corpuscular Hemoglobin 29.8 pg (26-32); Mean Corpuscular Hgb Concent. 31.9 g/dl (32-36); Mean Platelet Volume 10.6 fl (7.5-11.0); Monocytes % 7.9 % (0.0-12.0); Neutrophil % 77.6 % (36.0-66.0); Platelet Count 202 K/mm3 (150-450); Red Blood Count 3.32 M/mm3 (4.1-5.4); Red Cell Distribution Width 12.6 % (11.5-14.0); White Blood Count 11.4 K/mm3 (4.0-10.5)
[2021-07-08 06:46] LABS: ALBUMIN 3.3 g/dL (3.5-5.0); ALKALINE PHOSPHATASE 73 U/L (38-126); ANION GAP 12.4 MEQ/L (5-15); BLOOD UREA NITROGEN 11 mg/dL (7-17); CHLORIDE 109 mmol/L (98-107); Calcium 9.3 mg/dL (8.4-10.2); Carbon Dioxide 21 mmol/L (22-30); EST GLOMERULAR FILTRATION RATE > 60.0 ML/MIN; Glucose 88 mg/dL (74-106); Potassium 4.8 mmol/L (3.5-5.1); SGOT/AST 23 U/L (14-36); SGPT/ALT 10 U/L (0-35); SODIUM 137 mmol/L (137-145); Total Protein 6.1 g/dL (6.3-8.2)
[2021-07-08 08:17] VITALS: BP 160/67; PULSE 82; O2SAT 96
[2021-07-08] MEDS: ENTRESTO 49 MG-51 MG TABLET PO SCH (09:13)
[2021-07-08] MEDS: ECOTRIN 81 MG PO SCH (09:14)
--- NOTE | 2021-07-08 11:27 | PCM.SSS ---
History of Present Illness - Chief Complaint Chief Complaint: dehydration, diarrhea Date: 07/08/21 History of Present Illness: is a 86 year old female. Pt. brought to er for persistent diarrhea and nausea the few days prior, pt. was unable to take in adequate PO intake and became dehydrated for which she was admitted to hospital. - Review of Systems Constitutional: Weakness, No Fever, No Chills Eyes: No Symptoms Ears, Nose, & Throat: No Symptoms Respiratory: No Cough, No Short Of Breath Cardiac: No Chest Pain, No Edema, No Syncope Abdominal/Gastrointestinal: Abdominal Pain, Nausea, Diarrhea, Appetite Changes, No Vomiting Genitourinary Symptoms: No Dysuria Musculoskeletal: No Back Pain, No Neck Pain Skin: No Rash Neurological: No Dizziness, No Focal Weakness, No Sensory Changes Psychological: No Symptoms Endocrine: No Symptoms Hematologic/Lymphatic: No Symptoms Immunological/Allergic: No Symptoms Medications & Allergies Home Medications: Home Medication List Aspirin [Aspirin EC] 81 mg PO DAILY 07/06/21 [History Confirmed 07/06/21] Sacubitril/Valsartan [Entresto 24 mg-26 mg Tablet] 1 each PO BID 07/06/21 [History Confirmed 07/06/21] Simvastatin 20Mg [Zocor 20Mg] 20 mg PO QPM 07/06/21 [History Confirmed 07/06/21] Acetaminophen 325 mg [Tylenol 325 mg] 650 mg PO Q6H PRN PRN tablet 07/08/21 [Rx] Allergies/Adverse Reactions: Allergies Allergy/AdvReac Type Severity Reaction Status Date / Time amoxicillin [Amoxicillin] Allergy Intermediate facial Verified 05/07/19 13:53 swelling and flushed promethazine [From Phenergan] Allergy Mild Verified 05/07/19 17:39 metronidazole [From Flagyl] Allergy Unknown Verified 05/07/19 13:53 Penicillins Allergy Unknown Verified 05/07/19 13:53 Sulfa (Sulfonamide Allergy Unknown Verified 05/07/19 13:53 Antibiotics) - Past Medical History Past Medical History: Yes Neurological History: No Pertinent History ENT History: Cataracts Cardiac History: High Cholesterol, Hypertension, Other Respiratory History: Asthma Endocrine Medical History: No Pertinent History Musculoskelatal History: No Pertinent History GI Medical History: No Pertinent History, Other (irritable bowel syndrome) History: Other Pyscho-Social History: No Pertinent History Reproductive Disorders: Fibroids Comment: PERICARDICECTOMY 2006; cdiff 09/2015 - Female History Are you now?: No - Past Surgical History Past Surgical History: Yes Neuro Surgical History: No Pertinent History Cardiac History: Cardiac Catheterization, Cardiac Stent GI Surgical History: No Pertinent History Genitourinary Surgical Hx: No Pertinent History Musculskeletal Surgical Hx: No Pertinent History Female Surgical History: Hysterectomy Other Surgical History: pericardectomy. bilateral cataracts - Social History Smoking Status: Never smoker Exposure to second hand smoke: No Alcohol: None Drug Use: none - Physical Exam Vital Signs: Vital Signs - 24 hr Temp Pulse Resp BP Pulse Ox 07/08/21 08:00 97.9 F 82 15 160/67 96 07/08/21 04:00 96.7 F 77 18 139/61 95 07/08/21 00:00 96.0 F 84 18 128/60 94 L 07/07/21 19:53 97.3 F 85 16 137/63 96 07/07/21 16:00 69.8 F 77 16 149/65 95 07/07/21 12:00 97.0 F 77 16 158/70 98 General Appearance: no apparent distress, alert Neurologic Exam: alert, oriented x 3, cooperative, normal mood/affect, nml ce rebellar function, nml station & gait, sensation nml, No motor deficits Eye Exam: PERRL/EOMI, eyes nml inspection Ears, Nose, Throat Exam: normal ENT inspection, TMs normal, pharynx normal, moist mucous membranes Neck Exam: normal inspection, non-tender, supple, full range of motion Respiratory Exam: normal breath sounds, lungs clear, No respiratory distress Cardiovascular Exam: regular rate/rhythm, normal heart sounds, normal peripheral pulses Gastrointestinal/Abdomen Exam: soft, normal bowel sounds, tenderness (diffusely), No mass Back Exam: normal inspection, normal range of motion, No CVA tenderness, No vertebral tenderness Extremity Exam: normal inspection, normal range of motion, pelvis stable Skin Exam: normal color, warm, dry, No rash Lymphatic Exam: No adenopathy Results - Labs Lab/Micro Results: Lab Results-Last 24 Hours 07/08/21 07/08/21 Range/Units 05:20 05:20 WBC 11.4 H (4.0-10.5) K/mm3 RBC 3.32 L (4.1-5.4) M/mm3 Hgb 9.9 L (12.0-16.0) gm/dl Hct 31.0 L (35-47) % MCV 93.4 (78-100) fl MCH 29.8 (26-32) pg MCHC 31.9 L (32-36) g/dl RDW 12.6 (11.5-14.0) % Plt Count 202 (150-450) K/mm3 MPV 10.6 (7.5-11.0) fl Gran % 77.6 H (36.0-66.0) % Eos # (Auto) 0.27 (0-0.5) Absolute Lymphs (auto) 1.36 (1.0-4.6) Absolute Monos (auto) 0.90 (0.0-1.3) Lymphocytes % 11.9 L (24.0-44.0) % Monocytes % 7.9 (0.0-12.0) % Eosinophils % 2.4 (0.00-5.0) % Basophils % 0.2 (0.0-0.4) % Absolute Granulocytes 8.89 H (1.4-6.9) Basophils # 0.02 (0-0.4) Sodium 137 (137-145) mmol/L Potassium 4.8 (3.5-5.1) mmol/L Chloride 109 H (98-107) mmol/L Carbon Dioxide 21 L (22-30) mmol/L Anion Gap 12.4 (5-15) MEQ/L BUN 11 (7-17) mg/dL Creatinine 0.90 (0.52-1.04) mg/dL Estimated GFR > 60.0 ML/MIN Glucose 88 (74-106) mg/dL Calcium 9.3 (8.4-10.2) mg/dL Total Bilirubin 0.60 (0.2-1.3) mg/dL AST 23 (14-36) U/L ALT 10 (0-35) U/L Alkaline Phosphatase 73 (38-126) U/L Serum Total Protein 6.1 L (6.3-8.2) g/dL Albumin 3.3 L (3.5-5.0) g/dL Assessment/Plan (1) Diarrhea Status: Acute Code(s): R19.7 - DIARRHEA, UNSPECIFIED (2) Abdominal pain in female patient Status: Acute Code(s): R10.9 - UNSPECIFIED ABDOMINAL PAIN (3) Acute gastroenteritis Status: Acute Code(s): K52.9 - NONINFECTIVE GASTROENTERITIS AND COLITIS, UNSPECIFIED (4) Decreased oral intake Status: Acute Code(s): R63.8 - OTHER SYMPTOMS AND SIGNS CONCERNING FOOD AND FLUID INTAKE Hospital Summary - Hospital Course Hospital Course: Pt. admitted for iv hydration, the diarrhea rapidly resolved, studies sent but by time she had a bm it was formed and unable to perform testing for c. diff, viral gi panel still pending at time of discharge, pt. noted some persistent general upset stomach but was able to take adequate po intake, notes although strength had not returned to her baseline she was better, with no persistent diarrhea, the pt. felt ready for discharge to home the am of 07/08/21. CBC and CMP both normal with good electrolytes and no problematic abnormalities both stable the past 2 days. - Vitals & Intake/Output Vital Signs: Vital Signs Temperature 97.9 F 07/08/21 08:00 Pulse Rate 82 07/08/21 08:00 Respiratory Rate 15 07/08/21 08:00 Blood Pressure 160/67 07/08/21 08:00 O2 Sat by Pulse Oximetry 96 07/08/21 08:00 Intake & Output: Intake & Output 07/05/21 07/06/21 07/07/21 07/08/21 11:59 11:59 11:59 11:59 Intake Total 2418 4064 Output Total 1950 2100 Balance 468 1964 Weight 80 kg - Lab Result Diagrams: 07/08/21 05:20 07/08/21 05:20 Lab Results-Last 24 Hrs: Lab Results-Last 24 Hours 07/08/21 07/08/21 Range/Units 05:20 05:20 WBC 11.4 H (4.0-10.5) K/mm3 RBC 3.32 L (4.1-5.4) M/mm3 Hgb 9.9 L (12.0-16.0) gm/dl Hct 31.0 L (35-47) % MCV 93.4 (78-100) fl MCH 29.8 (26-32) pg MCHC 31.9 L (32-36) g/dl RDW 12.6 (11.5-14.0) % Plt Count 202 (150-450) K/mm3 MPV 10.6 (7.5-11.0) fl Gran % 77.6 H (36.0-66.0) % Eos # (Auto) 0.27 (0-0.5) Absolute Lymphs (auto) 1.36 (1.0-4.6) Absolute Monos (auto) 0.90 (0.0-1.3) Lymphocytes % 11.9 L (24.0-44.0) % Monocytes % 7.9 (0.0-12.0) % Eosinophils % 2.4 (0.00-5.0) % Basophils % 0.2 (0.0-0.4) % Absolute Granulocytes 8.89 H (1.4-6.9) Basophils # 0.02 (0-0.4) Sodium 137 (137-145) mmol/L Potassium 4.8 (3.5-5.1) mmol/L Chloride 109 H (98-107) mmol/L Carbon Dioxide 21 L (22-30) mmol/L Anion Gap 12.4 (5-15) MEQ/L BUN 11 (7-17) mg/dL Creatinine 0.90 (0.52-1.04) mg/dL Estimated GFR > 60.0 ML/MIN Glucose 88 (74-106) mg/dL Calcium 9.3 (8.4-10.2) mg/dL Total Bilirubin 0.60 (0.2-1.3) mg/dL AST 23 (14-36) U/L ALT 10 (0-35) U/L Alkaline Phosphatase 73 (38-126) U/L Serum Total Protein 6.1 L (6.3-8.2) g/dL Albumin 3.3 L (3.5-5.0) g/dL - Discharge Discharge Date: 07/08/21 Disposition: Home, Self-Care Condition: Stable Prescriptions: New Acetaminophen 325 mg [Tylenol 325 mg] 650 mg PO Q6H PRN PRN tablet PRN Reason: Pain And/Or Fever Continue Simvastatin 20Mg [Zocor 20Mg] 20 mg PO QPM Sacubitril/Valsartan [Entresto 24 mg-26 mg Tablet] 1 each PO BID Aspirin [Aspirin EC] 81 mg PO DAILY Instructions: Dehydration, Adult (DC), Irritable Bowel Syndrome (DC), Acute Abdomen (Belly Pain), Adult (DC), IBS Diet Follow up with: JULY ZIEGLER DO [Primary Care Provider] - Call for Appointment Forms: Discharge Instructions
== END 2021-07-08 10:44 | disposition home or self-care (01) ==
LOC: MED SURG 13:53
PROVIDERS: ADMIT Family Medicine; ATTEND Family Medicine
DX: K52.9 Noninfective gastroenteritis and colitis, unspecified (principal); R10.9 Unspecified abdominal pain; R63.8 Other symptoms and signs concerning food and fluid intake; E86.0 Dehydration; E78.00 Pure hypercholesterolemia, unspecified; I10 Essential (primary) hypertension; Z79.899 Other long term (current) drug therapy
CPT/HCPCS: 0241U; 36415; 80048; 80053; 83735; 85025; 87045; 87046; 87328; 87329; 93268; G0378; A9270-GY

== ENCOUNTER 2022-07-12 10:21 | Emergency (ER) | payer MEDICARE, OTHER ==
[2022-07-12 10:51] VITALS: BP 171/66; PULSE 69; O2SAT 99
--- NOTE | 2022-07-12 11:08 | ERPHSYRPT ---
- History of Present Illness Time Seen by Provider: 07/12/22 10:45 Source: patient Exam Limitations: no limitations Patient Subjective Stated Complaint: C/O intermittent right calf pain that started around [place] Triage Nursing Assessment: Patient ambulated back to ER with a slow, steady gait. No SOB. She is alert and oriented. No skin alterations noted to RLE; scar noted to right benson area. Pedal pulses present and equal. Slight edema noted to BLE; right no worse than left. Denies pain with extension and flexion of foot Physician History: Patient is an 87-year-old female with a history of skin cancer to her right leg. Patient underwent chemo therapy patient follow-up with her edge kitter who had been managing her skin cancer. Patient advised that she had been experiencing intermittent right calf pain. Patient's edge kitter and advised patient to come to contact her doctor to obtain a ultrasound to rule out DVT. Patient otherwise has no complaints. No chest pain or shortness of breath. No nausea vomiting or diaphoresis. Pain described as an ache that is localized. No radiation. Pain is intermittent. No active pain at this time. Patient states that she has been experiencing this pain intermittently for several months. No change in the intensity over this period of time. Patient called her primary care doctor yesterday to arrange for an outpatient ultrasound however I was unable to speak to her physician so the office staff advised patient come to our ED. Symptoms are mild to moderate in intensity. Patient declined pain medication. No specific worsening improving factors. Patient voices no other complaints or concerns at this time. Portions of this note were created with voice recognition technology. There may be grammatical, spelling, punctuation or sound alike errors Timing/Duration: day(s) (Intermittent pain for several months was advised to obtain an ultrasound yesterday) Severity: moderate (Pain is intermittent. No active pain at this time. Patient declined pain medication) Modifying Factors: Improves With: nothing Associated Symptoms: denies symptoms Allergies/Adverse Reactions: amoxicillin [Amoxicillin] Allergy (Intermediate, Verified 07/12/22 10:36) facial swelling and flushed promethazine [From Phenergan] Allergy (Mild, Verified 07/12/22 10:36) metronidazole [From Flagyl] Allergy (Unknown, Verified 07/12/22 10:36) cant rememer Penicillins Allergy (Unknown, Verified 07/12/22 10:36) cant remember Sulfa (Sulfonamide Antibiotics) Allergy (Unknown, Verified 07/12/22 10:36) cant rememeber Home Medications: Aspirin [Aspirin EC] 81 mg PO DAILY 07/06/21 [History] Sacubitril/Valsartan [Entresto 24 mg-26 mg Tablet] 1 each PO BID 07/06/21 [History] Simvastatin 20Mg [Zocor 20Mg] 20 mg PO QPM 07/06/21 [History] Hx Tetanus, Diphtheria Vaccination/Date Given: Yes Hx Influenza Vaccination/Date Given: Yes Hx Pneumococcal Vaccination/Date Given: Yes Immunizations Up to Date: Yes Travel Risk - International Travel Have you traveled outside of the country in past 3 weeks: No - Coronavirus Screening Are you exhibiting any of the following symptoms?: No Close contact with a COVID-19 positive Pt in past 14-21 Days: No - Vaccine Status Have you recieved a Covid-19 vaccination: Yes Security Escort: Unknown - Vaccination Dates Dates if Unknown: ? - Review of Systems Constitutional: No Symptoms, No Fever, No Chills Eyes: No Symptoms Ears, Nose, & Throat: No Symptoms Respiratory: No Symptoms, No Cough, No Dyspnea Cardiac: No Symptoms, No Chest Pain, No Edema, No Syncope Abdominal/Gastrointestinal: No Symptoms, No Abdominal Pain, No Nausea, No Vomiting, No Diarrhea Genitourinary Symptoms: No Symptoms, No Dysuria Musculoskeletal: No Symptoms, No Back Pain, No Neck Pain Skin: No Symptoms, No Rash Neurological: No Symptoms, No Dizziness, No Focal Weakness, No Sensory Changes Psychological: No Symptoms Endocrine: No Symptoms Hematologic/Lymphatic: No Symptoms All Other Systems: Reviewed and Negative - Past Medical History Pertinent Past Medical History: Yes Neurological History: No Pertinent History ENT History: Cataracts Cardiac History: High Cholesterol, Hypertension, Other Respiratory History: Asthma Endocrine Medical History: No Pertinent History Musculoskeletal History: No Pertinent History GI Medical History: No Pertinent History, Other History: Other Psycho-Social History: No Pertinent History Female Reproductive Disorders: Fibroids Other Medical History: PERICARDICECTOMY 2005; cdiff 09/2015, SKIN CA TO RLE (RADIATION) - Past Surgical History Past Surgical History: Yes Neuro Surgical History: No Pertinent History Cardiac: Cardiac Catheterization, Cardiac Stent Gastrointestinal: No Pertinent History Genitourinary: No Pertinent History Musculoskeletal: No Pertinent History Female Surgical History: Hysterectomy Other Surgical History: pericardectomy. bilateral cataracts - Social History Smoking Status: Never smoker Exposure to second hand smoke: No Drug Use: none Patient Lives Alone: Yes - Nursing Vital Signs Nursing Vital Signs: Initial Vital Signs Temperature 96.9 F 07/12/22 10:38 Pulse Rate 69 07/12/22 10:38 Respiratory Rate 17 07/12/22 10:38 Blood Pressure 171/66 07/12/22 10:38 O2 Sat by Pulse Oximetry 99 07/12/22 10:38 Pain Scale Pain Intensity 3 - Physical Exam General Appearance: no apparent distress, alert Eye Exam: PERRL/EOMI, eyes nml inspection Ears, Nose, Throat Exam: normal ENT inspection, TMs normal, pharynx normal, moist mucous membranes Neck Exam: normal inspection, non-tender, supple, full range of motion Respiratory Exam: normal breath sounds, lungs clear, airway intact, No respiratory distress Cardiovascular Exam: regular rate/rhythm, normal heart sounds, normal peripheral pulses Gastrointestinal/Abdomen Exam: soft, normal bowel sounds, No tenderness, No mass Back Exam: normal inspection, normal range of motion, CVA tenderness, No vertebral tenderness Extremity Exam: normal inspection, normal range of motion, pelvis stable Neurologic Exam: alert, oriented x 3, cooperative, normal mood/affect, nml cerebellar function, nml station & gait, sensation nml, No motor deficits Skin Exam: normal color, warm, dry, No rash Lymphatic Exam: No adenopathy SpO2 Interpretation: normal SpO2: 99 O2 Delivery: Room Air - Course Nursing assessment & vital signs reviewed: Yes - Radiology Ultrasound Exam Venous Lower Extremity Ultrasound: discussed w/radiologist (Per senior visual designer no DVT at the involved extremity) Ordered Tests: Active Orders 24 hr Category Date Time Status VENOUS UNILAT/LIMITED EXTREMIT [US] Stat Exams 07/12/22 10:51 Completed - Progress Progress: improved Progress Note: Patient is an 87-year-old female presents to our ED as a referral from her primary care doctor's office for evaluation of right lower extremity pain to rule out DVT. Patient was evaluated by her edge kitter who advised patient that she would need an ultrasound to rule out DVT of her right lower extremity. Patient has been experiencing the symptoms for approximately 3 months. However was advised to come to our ED to rule out DVT yesterday. Physical exam reveals a right lower extremity that is neurovascular intact distally. Compartments are soft. Cap refill less than 2 seconds. Patient's symptoms are acute to subacute. Complexity of the pain is moderate. Comorbidities that may be contributing to patient's symptoms as a history of cancer which can predispose to DVT PE. An ultrasound of the right lower extremity was ordered to evaluate for possible DVT. The results were used for medical decision making. Findings are negative for DVT. Patient declined pain medication. Plan of care discussed with patient. She agrees to follow-up with her primary care doctor within 48 hours for evaluation. Patient has the means and support to follow through with the plan of care Level of EM service provided was moderate. Complexity of the problem addressed was moderate. Complexity of data reviewed and analyzed was moderate Risk of complication or risk of morbidity/mortality of patient management is minimal Patient served as an independent historian. Patient tolerated the ultrasound procedure well. No complications. Patient voices no other complaints concerns at this time. Portions of this note were created with voice recognition technology. There may be grammatical, spelling, punctuation or sound alike errors 07/12/22 11:11 Counseled pt/family regarding: diagnosis, need for follow-up, rad results - Departure Departure Disposition: Home Clinical Impression: Leg cramps Condition: Stable Critical Care Time: No Referrals: JULY ZIEGLER DO [Primary Care Provider] - Follow up/PCP as directed Additional Instructions: Discharge/Care Plan MINNIE LANDA was seen on 07/12/22 in the Emergency Room. The patient was counseled regarding Diagnosis,Lab results, Imaging studies, need for follow up and when to return to the Emergency Room. Prescriptions given: Discharge Note I have spoken with the patient and/or caregivers. I have explained the patient's condition, diagnosis and treatment plan based on the information available to me at this time. I have answered the patient's and/or caregiver's questions and addressed any concerns. The patient and/or caregivers have as good understanding of the patient's diagnosis, condition and treatment plan as can be expected at this point. The vital signs have been stable. The patient's condition is stable and appropriate for discharge from the emergency department. The patient will pursue further outpatient evaluation with the primary care physician or other designated or consulting physician as outlined in the discharge instructions. The patient and/or caregivers are agreeable to this plan of care and follow-up instructions have been explained in detail. The patient and/or caregivers have received these instruction. The patient/and or caregivers are aware that any significant change in condition or worsening of symptoms should prompt an immediate return to this or the closest emergency department or call 911.
--- NOTE | 2022-07-12 11:33 | XRAY ---
Indication: Right leg pain. Two-dimensional sonogram and color Doppler imaging of the major venous vessels of the right leg performed. Comparison: None No thrombus seen in the examined deep venous vessels of the right leg including greater saphenous vein. Veins demonstrate normal compressibility. Venous waveforms are normal with and without augmentation. Impression: Right leg negative for DVT.
== END 2022-07-12 11:51 | disposition home or self-care (01) ==
LOC: ED 10:21
DX: R25.2 Cramp and spasm (principal); M79.661 Pain in right lower leg; Z79.899 Other long term (current) drug therapy; E78.5 Hyperlipidemia, unspecified; I10 Essential (primary) hypertension
CPT/HCPCS: 93971; 99283

== ENCOUNTER 2023-01-09 14:31 | Observation (INO) | payer MEDICARE, OTHER ==
[2023-01-09] MEDS ORDERED: BABY ASPIRIN 81 MG CHEW PO ONE (14:39)
[2023-01-09] MEDS ORDERED: BABY ASPIRIN 81 MG CHEW ONE (14:47)
[2023-01-09 14:54] LABS: Absolute Neutrophil Ct (ANC) 5.53 x10^3/uL (1.4-6.9); BASOPHIL % 0.3 % (0.0-0.4); Basophil (Absolute #) 0.02 x10^3/uL (0-0.4); Eosinophil % 2.2 % (0.00-5.0); Eosinophil (Absolute #) 0.17 x10^3/uL (0-0.5); Hematocrit 34.4 % (35-47); Hemoglobin 11.4 g/dL (12.0-16.0); IMMATURE GRAN # 0.03 x10^3u/L (0.00-0.03); IMMATURE GRAN % 0.4 % (0.00-0.4); Lymphocyte (Absolute #) 1.48 x10^3/uL (1.0-4.6); Mean Cell Volume 90.1 fL (78-100); Mean Corpuscular Hemoglobin 29.8 pg (26-32); Mean Corpuscular Hgb Concent. 33.1 g/dL (32-36); Mean Platelet Volume 10.7 fL (7.5-11.0); Monocyte (Absolute #) 0.54 x10^3/uL (0.0-1.3); Monocytes % 6.9 % (0.0-12.0); Neutrophil % 71.2 % (36.0-66.0); Platelet Count 246 x10^3/uL (150-450); Red Blood Count 3.82 x10^6/uL (4.1-5.4); Red Cell Distribution Width 12.4 % (11.5-14.0); White Blood Count 7.8 x10^3/uL (4.0-10.5)
--- NOTE | 2023-01-09 14:58 | XRAY ---
Indication: Chest pain. Comparison: November 06, 2009 Portable chest demonstrates new left costophrenic angle haziness, infiltrate versus atelectasis. Right lung clear. Heart not enlarged again with CABG and pericardial calcifications. Bony thorax intact.
[2023-01-09 15:17] LABS: ALBUMIN 4.3 g/dL (3.5-5.0); ANION GAP 16.1 MEQ/L (5-15); BILIRUBIN,TOTAL 0.6 mg/dL (0.2-1.3); Calcium 9.7 mg/dL (8.4-10.2); Creatinine 1 1.12 mg/dL (0.52-1.04); EST GLOMERULAR FILTRATION RATE 48.7 ML/MIN; Potassium 4.4 mmol/L (3.5-5.1); Total Protein 7.9 g/dL (6.3-8.2)
--- NOTE | 2023-01-09 16:06 | ERPHSYRPT ---
- History of Present Illness Time Seen by Provider: 01/09/23 14:34 Historian: patient Exam Limitations: no limitations Patient Subjective Stated Complaint: pt sent from [facility] office for chest pain yesterday, none today, states she feels weak and nauseated, she just finished antiboitcs for a UTI. Triage Nursing Assessment: pt alert, walked in, resp easy, skin w/w/p, chest clear, no edema noted.moves all ext well, deines pain Physician History: 88 years old female with history of hypertension, coronary artery disease status post CABG presented in the ER with chief complaint of intermittent chest pain since yesterday. Patient report this is a pressure sensation in the left with no significant radiation. Aggravated with activity and better with resting. Patient currently does not have any chest pain but reports like couple of hours ago it was constant and was getting worse, called Dr. Mcdaniels who recommended to be seen in the ER. Patient reports having a downhill course for the last couple of months where she gets/feels worn out with minimal activity. She has chronic shortness of breath with activity which is not any worse than usual. Denies any lower extremity swelling. No fever or chills reported. Timing/Duration: yesterday, intermittent, gradual onset, improved Activities at Onset: rest Quality: pressure Location: substernal Severity of Pain-Max: moderate Severity of Pain-Current: moderate Associated Symptoms: shortness of breath Prior Chest Pain/Cardiac Workup: angina Nitro Today/Relief: no nitro taken today Aspirin Treatment Today: no aspirin today Allergies/Adverse Reactions: amoxicillin [Amoxicillin] Allergy (Intermediate, Verified 01/09/23 14:32) facial swelling and flushed promethazine [From Phenergan] Allergy (Mild, Verified 01/09/23 14:32) metronidazole [From Flagyl] Allergy (Unknown, Verified 01/09/23 14:32) cant rememer Penicillins Allergy (Unknown, Verified 01/09/23 14:32) cant remember Sulfa (Sulfonamide Antibiotics) Allergy (Unknown, Verified 01/09/23 14:32) cant rememeber Home Medications: Aspirin [Aspirin EC] 81 mg PO DAILY 07/06/21 [History] Sacubitril/Valsartan [Entresto 24 mg-26 mg Tablet] 1 each PO BID 07/06/21 [History] Simvastatin 20Mg [Zocor 20Mg] 20 mg PO QPM 07/06/21 [History] Cefdinir 300 mg PO BID 01/09/23 [History] Hx Tetanus, Diphtheria Vaccination/Date Given: Yes Hx Influenza Vaccination/Date Given: Yes Hx Pneumococcal Vaccination/Date Given: Yes Immunizations Up to Date: Yes Travel Risk - International Travel Have you traveled outside of the country in past 3 weeks: No - Coronavirus Screening Are you exhibiting any of the following symptoms?: No - Vaccine Status Have you recieved a Covid-19 vaccination: Yes Quarantine Inspector: Unknown - Vaccination Dates Dates if Unknown: ? - Review of Systems Constitutional: Fatigue, Weakness Eyes: No Symptoms Ears, Nose, & Throat: No Symptoms Respiratory: Dyspnea on Exertion (PAYAN) Cardiac: Chest Pain Abdominal/Gastrointestinal: No Symptoms Genitourinary Symptoms: No Symptoms Musculoskeletal: Arthralgias Skin: No Symptoms Neurological: No Symptoms Endocrine: No Symptoms Hematologic/Lymphatic: No Symptoms - Past Medical History Pertinent Past Medical History: Yes Neurological History: No Pertinent History ENT History: Cataracts Cardiac History: Coronary Artery Disease, High Cholesterol, Other Respiratory History: Asthma Endocrine Medical History: No Pertinent History Musculoskeletal History: No Pertinent History GI Medical History: No Pertinent History, Other History: Other Psycho-Social History: No Pertinent History Female Reproductive Disorders: Fibroids Other Medical History: PERICARDICECTOMY 2005; cdiff 09/2015, SKIN CA TO RLE (RADIATION) - Past Surgical History Past Surgical History: Yes Neuro Surgical History: No Pertinent History Cardiac: Cardiac Catheterization, Cardiac Stent, Other Gastrointestinal: Appendectomy Genitourinary: No Pertinent History Musculoskeletal: No Pertinent History Female Surgical History: Hysterectomy Other Surgical History: surg on heart - Social History Smoking Status: Never smoker Exposure to second hand smoke: No Drug Use: none Patient Lives Alone: Yes - Nursing Vital Signs Nursing Vital Signs: Initial Vital Signs Pulse Rate 80 01/09/23 14:37 Pain Scale Pain Intensity 0 - Physical Exam General Appearance: no apparent distress, alert Eye Exam: PERRL/EOMI Ears, Nose, Throat Exam: normal ENT inspection, pharynx normal Neck Exam: non-tender, supple, full range of motion Respiratory Exam: normal breath sounds, lungs clear Cardiovascular Exam: regular rate/rhythm, normal heart sounds Gastrointestinal/Abdomen Exam: soft, normal bowel sounds, No tenderness Back Exam: normal inspection Extremity Exam: normal inspection, normal range of motion Neurologic Exam: alert, oriented x 3, cooperative Skin Exam: normal color SpO2 Interpretation: normal SpO2: 98 O2 Delivery: Room Air Ordered Tests: Medication Summary Discontinued Medications Generic Name Dose Route Start Last Admin Trade Name Freq PRN Reason Stop Dose Admin Acetaminophen 650 mg 01/09/23 16:39 01/10/23 07:54 Acetaminophen 325 Mg Tablet PO 02/08/23 16:38 650 mg Q4H PRN PRN Administration PAIN AND/OR FEVER Albuterol/Ipratropium 3 ml 01/09/23 16:39 Ipratropium/Albuterol Sulfate 3 Ml Ampul.Neb IH 02/08/23 16:38 Q4HPRN PRN SHORTNESS OF BREATH/WHEEZING Aspirin 324 mg 01/09/23 14:39 01/09/23 14:48 Aspirin 81 Mg Tab.Chew PO 01/09/23 14:40 324 mg STAT ONE Administration Aspirin Confirm 01/09/23 14:47 Aspirin 81 Mg Tab.Chew Administered 01/09/23 14:48 Dose 324 mg .ROUTE .STK-MED ONE Aspirin 81 mg 01/10/23 10:00 01/10/23 09:37 Aspirin 81 Mg Tablet.Ec PO 02/09/23 09:59 81 mg DAILY ZION Administration Docusate Sodium 100 mg 01/09/23 17:13 Docusate Sodium 100 Mg Capsule PO 02/08/23 17:12 BIDPRN PRN CONSTIPATION Famotidine 20 mg 01/09/23 22:00 01/10/23 09:37 Famotidine 20 Mg Tablet PO 02/08/23 21:59 20 mg BID ZION Administration Heparin Sodium (Beef Lung) 5,000 unit 01/09/23 22:00 01/10/23 09:38 Heparin 5000 Units/0.5 Ml 5,000 Unit/0.5 Ml Syr SQ 02/08/23 21:59 5,000 unit BID ZION Administration Ceftriaxone Sodium/Dextrose 1 g in 50 mls @ 100 mls/hr 01/10/23 10:00 01/10/23 09:43 Rocephin 1 Gm-D5w 50 Ml Bag IV 01/13/23 09:59 Not Given Q24H10 ZION Lactobacillus Acidophilus 1 tab 01/10/23 10:00 01/10/23 09:37 Lactobacillus Acidophilus 1 Tab Tablet PO 02/09/23 09:59 1 tab DAILY ZION Administration Morphine Sulfate 2 mg 01/09/23 16:39 Morphine Sulfate 2 Mg/Ml Inj IV 01/14/23 16:38 Q4H PRN PRN PAIN Ondansetron HCl 4 mg 01/09/23 16:39 01/09/23 18:35 Ondansetron Hcl 4 Mg/2 Ml Vial IV 02/08/23 16:38 4 mg Q6H PRN PRN Administration NAUSEA/VOMITING Ondansetron HCl 4 mg 01/09/23 17:13 Ondansetron Hcl 4 Mg/2 Ml Vial IV 02/08/23 17:12 Q6H PRN PRN NAUSEA/VOMITING Pantoprazole Sodium 40 mg 01/09/23 17:00 01/10/23 09:43 Pantoprazole 40 Mg Vial IV 02/08/23 16:59 Not Given Q24H10 ZION Sacubitril/Valsartan Confirm 01/09/23 23:40 Sacubitril/Valsartan 1 Tablet Tablet Administered 01/09/23 23:41 Dose 1 tablet .ROUTE .STK-MED ONE Sacubitril/Valsartan 0.5 tablet 01/09/23 22:00 01/10/23 09:37 Sacubitril/Valsartan 1 Tablet Tablet PO 02/08/23 21:59 0.5 tablet BID ZION Administration Simvastatin 20 mg 01/09/23 22:00 01/10/23 00:00 Simvastatin 20 Mg Tablet PO 02/08/23 21:59 20 mg HS ZION Administration Lab/Rad Data: Laboratory Result Diagrams 01/09/23 14:39 01/09/23 14:40 Laboratory Results 01/09/23 01/09/23 01/09/23 Range/Units 14:40 14:40 14:39 WBC 7.8 (4.0-10.5) x10^3/uL RBC 3.82 L (4.1-5.4) x10^6/uL Hgb 11.4 L (12.0-16.0) g/dL Hct 34.4 L (35-47) % MCV 90.1 (78-100) fL MCH 29.8 (26-32) pg MCHC 33.1 (32-36) g/dL RDW 12.4 (11.5-14.0) % Plt Count 246 (150-450) x10^3/uL MPV 10.7 (7.5-11.0) fL Gran % 71.2 H (36.0-66.0) % Immature Gran % (Auto) 0.4 (0.00-0.4) % Nucleat RBC Rel Count 0.0 (0.00-0.1) % Eos # (Auto) 0.17 (0-0.5) x10^3/uL Immature Gran # (Auto) 0.03 (0.00-0.03) x10^3u/L Absolute Lymphs (auto) 1.48 (1.0-4.6) x10^3/uL Absolute Monos (auto) 0.54 (0.0-1.3) x10^3/uL Absolute Nucleated RBC 0.00 (0.00-0.01) x10^3u/L Lymphocytes % 19.0 L (24.0-44.0) % Monocytes % 6.9 (0.0-12.0) % Eosinophils % 2.2 (0.00-5.0) % Basophils % 0.3 (0.0-0.4) % Absolute Granulocytes 5.53 (1.4-6.9) x10^3/uL Basophils # 0.02 (0-0.4) x10^3/uL Sodium 130 L (137-145) mmol/L Potassium 4.4 (3.5-5.1) mmol/L Chloride 97 L (98-107) mmol/L Carbon Dioxide 21 L (22-30) mmol/L Anion Gap 16.1 H (5-15) MEQ/L BUN 20 H (7-17) mg/dL Creatinine 1.12 H (0.52-1.04) mg/dL Estimated GFR 48.7 ML/MIN Glucose 132 H (74-106) mg/dL Calcium 9.7 (8.4-10.2) mg/dL Total Bilirubin 0.60 (0.2-1.3) mg/dL AST 32 (14-36) U/L ALT 19 (0-35) U/L Alkaline Phosphatase 88 (38-126) U/L Troponin I < 0.012 (0.000-0.034) ng/mL NT-Pro-B Natriuret Pep 2740 (<300) pg/mL Serum Total Protein 7.9 (6.3-8.2) g/dL Albumin 4.3 (3.5-5.0) g/dL - Progress Progress: improved, re-examined Air Movement: good Progress Note: 01/09/23 16:09 88 years old female with history of hypertension, coronary artery disease status post CABG presented in the ER with chief complaint of intermittent chest pain since yesterday. Patient report this is a pressure sensation in the left with no significant radiation. Aggravated with activity and better with resting. Patient currently does not have any chest pain but reports like couple of hours ago it was constant and was getting worse, called Dr. Mcdaniels who recommended to be seen in the ER. Patient reports having a downhill course for the last couple of months where she gets/feels worn out with minimal activity. She has chronic shortness of breath with activity which is not any worse than usual. Denies any lower extremity swelling. No fever or chills reported. EKG did not show any acute ST elevation, had some questionable changes, I have Dr. Smalls to look at the EKG and does not think it is any change from previous. Initial troponins are negative. Patient remained symptom-free. Given aspirin here. Chest x-ray some questionable atelectasis versus infiltrate in the left lower lobe, patient oxygen saturation is around 97% on room air. No difficulty breathing at all. Her pain is more in the upper chest. I have discussed with tank insulator rubber Dr. Smalls, recommended admission here. I have discussed with Dr. De Souza, reviewed history, work-up and patient is being admitted here. I have discussed the results of work-up with patient, plan of admission and she agrees with it. Blood Culture(s) Obtained: No Antibiotics given: No Discussed with Dr.: Other (Dr. Elizabeth at [id number]) Will see patient in: hospital (observation) Counseled pt/family regarding: lab results, diagnosis, rad results Medical Desision Making - Discussion of managment Care discussed with:: hospitalist (Dr. Elizabeth [id number]) Reviewed:: Test results, Need for additional workup Agreed on:: Treatment plan, place in obs Will see patient: in hospital - Diagnostic Testing Diagnostic test were ordered, analyzed, and reviewed by me: Yes Radiological Interpretation: Reviewed by me - Risk of complications The pt has a high risk of morbidity or mortality based on: Decision regarding hospitilization or escalation of hosp level of care - Departure Departure Disposition: Observation Clinical Impression: Chest pain, rule out acute myocardial infarction Condition: Stable Critical Care Time: No
[2023-01-09] MEDS ORDERED: Zofran 4 MG/2 ML VIAL IV PRN ×2 (16:39→17:13)
[2023-01-09] MEDS ORDERED: DUONEB 0.5-3 MG/3 ml Neb IH PRN (16:39)
[2023-01-09] MEDS ORDERED: MORPHINE SULFATE 2 MG INJ IV PRN (16:39)
[2023-01-09] MEDS ORDERED: Docusate Sodium 100 MG PO PRN (17:13)
--- NOTE | 2023-01-09 17:26 | PCM.HP ---
History of Present Illness - Chief Complaint Chief Complaint: Chest pain rule out acute SC Date: 01/09/23 History of Present Illness: is a 88 year old female with a history of CAD, CABG (x1 in 2005; follows with Dr. Mitchell) and CHF who presented to the hospital with chest pain. The patient has had fatigue with exertion for a few weeks. The patient began to experience left sided chest pain (no radiation, worse with exertion and improved with rest, with a pressure quality) on the day prior to presentation. Her dyspnea is chronic and at baseline. She became concerned when the chest discomfort became more constant increasing in intensity. She denies leg edema or orthopnea. - Review of Systems Constitutional: No Symptoms Eyes: No Symptoms Ears, Nose, & Throat: No Symptoms Respiratory: Short Of Breath Cardiac: Chest Pain Abdominal/Gastrointestinal: No Symptoms Genitourinary Symptoms: No Symptoms Musculoskeletal: No Symptoms Skin: No Symptoms Neurological: No Symptoms Psychological: No Symptoms Endocrine: No Symptoms Hematologic/Lymphatic: No Symptoms Immunological/Allergic: No Symptoms All Other Systems: Reviewed and Negative Medications & Allergies Home Medications: Home Medication List Aspirin [Aspirin EC] 81 mg PO DAILY 07/06/21 [History Confirmed 01/09/23] Sacubitril/Valsartan [Entresto 24 mg-26 mg Tablet] 1 each PO BID 07/06/21 [History Confirmed 01/09/23] Simvastatin 20Mg [Zocor 20Mg] 20 mg PO QPM 07/06/21 [History Confirmed 01/09/23] Cefdinir 300 mg PO BID 01/09/23 [History Confirmed 01/09/23] Allergies/Adverse Reactions: Allergies Allergy/AdvReac Type Severity Reaction Status Date / Time amoxicillin [Amoxicillin] Allergy Intermediate facial Verified 01/09/23 14:32 swelling and flushed promethazine [From Phenergan] Allergy Mild Verified 01/09/23 14:32 metronidazole [From Flagyl] Allergy Unknown Verified 01/09/23 14:32 Penicillins Allergy Unknown Verified 01/09/23 14:32 Sulfa (Sulfonamide Allergy Unknown Verified 01/09/23 14:32 Antibiotics) - Past Medical History Past Medical History: Yes Neurological History: No Pertinent History ENT History: Cataracts Cardiac History: Coronary Artery Disease, High Cholesterol, Other Respiratory History: Asthma Endocrine Medical History: No Pertinent History Musculoskelatal History: No Pertinent History GI Medical History: No Pertinent History, Other History: Other Pyscho-Social History: No Pertinent History Reproductive Disorders: Fibroids Comment: PERICARDICECTOMY 2006; cdiff 09/2015, SKIN CA TO RLE (RADIATION) - Female History Are you now?: No - Past Surgical History Past Surgical History: Yes Neuro Surgical History: No Pertinent History Cardiac History: Cardiac Catheterization, Cardiac Stent, Other GI Surgical History: Appendectomy Genitourinary Surgical Hx: No Pertinent History Musculskeletal Surgical Hx: No Pertinent History Female Surgical History: Hysterectomy Other Surgical History: surg on heart - Social History Smoking Status: Never smoker Exposure to second hand smoke: No Alcohol: None Drug Use: none - Physical Exam Vital Signs: Vital Signs - 24 hr Temp Pulse Pulse Resp BP Pulse Ox 01/09/23 16:46 84 96 01/09/23 16:11 98 01/09/23 15:57 65 20 155/65 96 01/09/23 14:42 97.7 F 70 18 185/87 98 01/09/23 14:37 80 General Appearance: no apparent distress, alert Neurologic Exam: alert, oriented x 3, cooperative, flying teacher II-XII nml as tested, normal mood/affect, nml cerebellar function, nml station & gait Eye Exam: PERRL/EOMI, eyes nml inspection Ears, Nose, Throat Exam: normal ENT inspection Neck Exam: normal inspection, non-tender, supple, full range of motion Respiratory Exam: normal breath sounds, lungs clear Cardiovascular Exam: regular rate/rhythm, normal heart sounds Gastrointestinal/Abdomen Exam: soft, normal bowel sounds Back Exam: normal range of motion Extremity Exam: normal inspection, normal range of motion Skin Exam: normal color Results - Labs Lab/Micro Results: Lab Results-Last 24 Hours 01/09/23 01/09/23 01/09/23 Range/Units 14:39 14:40 14:40 WBC 7.8 (4.0-10.5) x10^3/uL RBC 3.82 L (4.1-5.4) x10^6/uL Hgb 11.4 L (12.0-16.0) g/dL Hct 34.4 L (35-47) % MCV 90.1 (78-100) fL MCH 29.8 (26-32) pg MCHC 33.1 (32-36) g/dL RDW 12.4 (11.5-14.0) % Plt Count 246 (150-450) x10^3/uL MPV 10.7 (7.5-11.0) fL Gran % 71.2 H (36.0-66.0) % Immature Gran % (Auto) 0.4 (0.00-0.4) % Nucleat RBC Rel Count 0.0 (0.00-0.1) % Eos # (Auto) 0.17 (0-0.5) x10^3/uL Immature Gran # (Auto) 0.03 (0.00-0.03) x10^3u/L Absolute Lymphs (auto) 1.48 (1.0-4.6) x10^3/uL Absolute Monos (auto) 0.54 (0.0-1.3) x10^3/uL Absolute Nucleated RBC 0.00 (0.00-0.01) x10^3u/L Lymphocytes % 19.0 L (24.0-44.0) % Monocytes % 6.9 (0.0-12.0) % Eosinophils % 2.2 (0.00-5.0) % Basophils % 0.3 (0.0-0.4) % Absolute Granulocytes 5.53 (1.4-6.9) x10^3/uL Basophils # 0.02 (0-0.4) x10^3/uL Sodium 130 L (137-145) mmol/L Potassium 4.4 (3.5-5.1) mmol/L Chloride 97 L (98-107) mmol/L Carbon Dioxide 21 L (22-30) mmol/L Anion Gap 16.1 H (5-15) MEQ/L BUN 20 H (7-17) mg/dL Creatinine 1.12 H (0.52-1.04) mg/dL Estimated GFR 48.7 ML/MIN Glucose 132 H (74-106) mg/dL Calcium 9.7 (8.4-10.2) mg/dL Total Bilirubin 0.60 (0.2-1.3) mg/dL AST 32 (14-36) U/L ALT 19 (0-35) U/L Alkaline Phosphatase 88 (38-126) U/L Troponin I < 0.012 (0.000-0.034) ng/mL NT-Pro-B Natriuret Pep 2740 (<300) pg/mL Serum Total Protein 7.9 (6.3-8.2) g/dL Albumin 4.3 (3.5-5.0) g/dL - Radiology Impressions Radiology Exams & Impressions: Radiology Procedures Category Date Time Status CHEST 1 VIEW (PORTABLE) Stat Exams 01/09/23 14:39 Completed Assessment/Plan (1) Chest pain, rule out acute myocardial infarction Current Visit: Yes Status: Acute Assessment & Plan: Dr. Mitchell informed by ED physician about initial workup (the patient was sent to the hospital by Dr. Mitchell). Continue ASA. Serial enzymes on tele. No acute ST changes on EKG. Continue current regimen. Code(s): R07.9 - CHEST PAIN, UNSPECIFIED (2) UTI (urinary tract infection) Current Visit: No Status: Acute Assessment & Plan: Had previously been on macrobid, but recently changed to omnicef by her urology team. However, she developed an upset stomach and requested an alternative. Rocephin IV was ordered, with a request for the urine culture results from the Urology office being placed, but the patient has subsequently declined further antibiotics until culture results are available. She has been made aware that this may result in incomplete/under-treatment of her infection which could result in sepsis or even . She is aware of the risks of declining treatment. Code(s): N39.0 - URINARY TRACT INFECTION, SITE NOT SPECIFIED (3) Hypertension Current Visit: No Status: Acute Assessment & Plan: Continue current regimen. Code(s): I10 - ESSENTIAL (PRIMARY) HYPERTENSION Telemedicine Encounter - Telemedicine Encounter Telemedicine Encounter: The entirety of this encounter was performed via Telemedicine"
[2023-01-09 17:29] LABS: Appearance Clear (Clear); Bacteria None Seen /HPF (None Seen); Bilirubin Negative (Negative); Blood Negative (Negative); Epithelial Cells None Seen /HPF (None Seen); Glucose, Urine Negative (Negative); Hyaline Casts NONE SEEN /LPF (0-2); Ketones Negative (Negative); Leukocyte Esterase Negative (Negative); Nitrite Negative (Negative); Protein,Urine Dip Negative (Negative); RBC 0-2 /HPF (0-5); Specific Gravity <=1.005 (1.005-1.030); Urobilinogen 0.2 mg/dL (0.2); WBC 0-2 /HPF (0-5)
[2023-01-09] MEDS: TYLENOL 325 MG PO PRN (17:31)
[2023-01-09] MEDS: PROTONIX 40 MG IV IV SCH (17:32)
[2023-01-09 17:34] LABS: ADD URINE CULTURE? NO (NO)
[2023-01-09] MEDS ORDERED: ZOCOR 20MG PO SCH (22:00)
[2023-01-09] MEDS: HEPARIN 5000 UNITS/0.5 ML (HIGH RISK MED) SQ SCH (23:09)
[2023-01-09] MEDS: Pepcid 20 MG PO SCH (23:09)
[2023-01-09] MEDS ORDERED: ENTRESTO 49 MG-51 MG TABLET ONE (23:40)
[2023-01-10 04:32] LABS: Absolute Neutrophil Ct (ANC) 4.34 x10^3/uL (1.4-6.9); BASOPHIL % 0.4 % (0.0-0.4); Basophil (Absolute #) 0.03 x10^3/uL (0-0.4); Eosinophil % 4.2 % (0.00-5.0); Eosinophil (Absolute #) 0.29 x10^3/uL (0-0.5); Hematocrit 31.3 % (35-47); Hemoglobin 10.2 g/dL (12.0-16.0); IMMATURE GRAN # 0.03 x10^3u/L (0.00-0.03); IMMATURE GRAN % 0.4 % (0.00-0.4); Lymphocyte (Absolute #) 1.42 x10^3/uL (1.0-4.6); Lymphocytes % 20.7 % (24.0-44.0); Mean Cell Volume 91.8 fL (78-100); Mean Corpuscular Hemoglobin 29.9 pg (26-32); Mean Corpuscular Hgb Concent. 32.6 g/dL (32-36); Mean Platelet Volume 10.3 fL (7.5-11.0); Monocyte (Absolute #) 0.76 x10^3/uL (0.0-1.3); Monocytes % 11.1 % (0.0-12.0); Neutrophil % 63.2 % (36.0-66.0); Platelet Count 232 x10^3/uL (150-450); Red Blood Count 3.41 x10^6/uL (4.1-5.4); Red Cell Distribution Width 12.6 % (11.5-14.0); White Blood Count 6.9 x10^3/uL (4.0-10.5)
[2023-01-10 04:48] LABS: ALBUMIN 3.5 g/dL (3.5-5.0); ANION GAP 11.4 MEQ/L (5-15); BILIRUBIN,TOTAL 0.5 mg/dL (0.2-1.3); Calcium 9.1 mg/dL (8.4-10.2); Creatinine 1 1.13 mg/dL (0.52-1.04); EST GLOMERULAR FILTRATION RATE 48.2 ML/MIN; Potassium 4.1 mmol/L (3.5-5.1); Total Protein 6.4 g/dL (6.3-8.2)
[2023-01-10 06:52] VITALS: RESP 16
[2023-01-10] MEDS: TYLENOL 325 MG PO PRN (07:54)
[2023-01-10] MEDS: Pepcid 20 MG PO SCH (09:37)
[2023-01-10] MEDS: ENTRESTO 49 MG-51 MG TABLET PO SCH ×2 (09:37)
[2023-01-10] MEDS: HEPARIN 5000 UNITS/0.5 ML (HIGH RISK MED) SQ SCH (09:38)
[2023-01-10] MEDS: PROTONIX 40 MG IV IV SCH (09:43)
[2023-01-10] MEDS ORDERED: ECOTRIN 81 MG PO SCH (10:00)
[2023-01-10] MEDS ORDERED: Acidophilus TABLET PO SCH (10:00)
[2023-01-10] MEDS ORDERED: ROCEPHIN 1 Gm-D5w 50 ml Bag** 1 G/50 ML IVPB IV SCH (10:00)
[2023-01-10 11:31] VITALS: BP 139/65; PULSE 68; TEMP 97.8
--- NOTE | 2023-01-10 14:27 | PCM.DS ---
Discharge Summary Date of Admission: 01/09/23 16:29 Date of Discharge: 01/10/23 Admitting Physician: BLANCA YOUNGBLOOD MD Primary Care Provider: KORIN OCONNOR Allergies Allergies amoxicillin [Amoxicillin] Allergy (Intermediate, Verified 01/09/23 14:32) facial swelling and flushed promethazine [From Phenergan] Allergy (Mild, Verified 01/09/23 14:32) metronidazole [From Flagyl] Allergy (Unknown, Verified 01/09/23 14:32) cant rememer Penicillins Allergy (Unknown, Verified 01/09/23 14:32) cant remember Sulfa (Sulfonamide Antibiotics) Allergy (Unknown, Verified 01/09/23 14:32) [facility] Summary - Hospital Course Hospital Course: Ruled out for [place] with serial enzymes on tele. Will resume home cardiac regimen and follow up with Dr. Mitchell (has echocardiogram scheduled later this week; will defer consideration of outpatient stress test to cardiology). Urine culture results requested from Dr. Elizondo's office, and this demonstrated E coli resistant to ampicillin but otherwise sensitive. However, the patient clarified that she completed a course of cefdinir and then had a follow up urinalysis at the urology office, which was negative for pyuria or evidence of active infection. The patient can follow up with urology as an outpatient. - Vitals & Intake/Output Vital Signs: Vital Signs Temperature 97.8 F 01/10/23 11:29 Pulse Rate 68 01/10/23 11:29 Respiratory Rate 16 01/10/23 11:29 Blood Pressure 139/65 01/10/23 11:29 O2 Sat by Pulse Oximetry 94 L 01/10/23 11:29 Intake & Output: Intake & Output 01/08/23 01/09/23 01/10/23 01/11/23 11:59 11:59 11:59 11:59 Intake Total 1180 480 Output Total 900 Balance 280 480 Weight 66 kg - Lab Result Diagrams: 01/10/23 04:11 01/10/23 04:11 Lab Results-Last 24 Hrs: Lab Results-Last 24 Hours 01/09/23 01/09/23 01/09/23 Range/Units 14:39 14:40 14:40 WBC 7.8 (4.0-10.5) x10^3/uL RBC 3.82 L (4.1-5.4) x10^6/uL Hgb 11.4 L (12.0-16.0) g/dL Hct 34.4 L (35-47) % MCV 90.1 (78-100) fL MCH 29.8 (26-32) pg MCHC 33.1 (32-36) g/dL RDW 12.4 (11.5-14.0) % Plt Count 246 (150-450) x10^3/uL MPV 10.7 (7.5-11.0) fL Gran % 71.2 H (36.0-66.0) % Immature Gran % (Auto) 0.4 (0.00-0.4) % Nucleat RBC Rel Count 0.0 (0.00-0.1) % Eos # (Auto) 0.17 (0-0.5) x10^3/uL Immature Gran # (Auto) 0.03 (0.00-0.03) x10^3u/L Absolute Lymphs (auto) 1.48 (1.0-4.6) x10^3/uL Absolute Monos (auto) 0.54 (0.0-1.3) x10^3/uL Absolute Nucleated RBC 0.00 (0.00-0.01) x10^3u/L Lymphocytes % 19.0 L (24.0-44.0) % Monocytes % 6.9 (0.0-12.0) % Eosinophils % 2.2 (0.00-5.0) % Basophils % 0.3 (0.0-0.4) % Absolute Granulocytes 5.53 (1.4-6.9) x10^3/uL Basophils # 0.02 (0-0.4) x10^3/uL Sodium 130 L (137-145) mmol/L Potassium 4.4 (3.5-5.1) mmol/L Chloride 97 L (98-107) mmol/L Carbon Dioxide 21 L (22-30) mmol/L Anion Gap 16.1 H (5-15) MEQ/L BUN 20 H (7-17) mg/dL Creatinine 1.12 H (0.52-1.04) mg/dL Estimated GFR 48.7 ML/MIN Glucose 132 H (74-106) mg/dL Calcium 9.7 (8.4-10.2) mg/dL Total Bilirubin 0.60 (0.2-1.3) mg/dL AST 32 (14-36) U/L ALT 19 (0-35) U/L Alkaline Phosphatase 88 (38-126) U/L Troponin I < 0.012 (0.000-0.034) ng/mL NT-Pro-B Natriuret Pep 2740 (<300) pg/mL Serum Total Protein 7.9 (6.3-8.2) g/dL Albumin 4.3 (3.5-5.0) g/dL Urine Color (Yellow) Urine Appearance (Clear) Urine pH (4.6-8.0) Ur Specific [place] (1.005-1.030) Urine Protein (Negative) Urine Glucose (UA) (Negative) mg/dL Urine Ketones (Negative) Urine Blood (Negative) Urine Nitrite (Negative) Urine Bilirubin (Negative) Urine Urobilinogen (0.2) mg/dL Ur Leukocyte Esterase (Negative) U Hyaline Cast (Auto) (0-2) /LPF Urine Microscopic RBC (0-5) /HPF Urine Microscopic WBC (0-5) /HPF Ur Epithelial Cells (None Seen) /HPF Urine Bacteria (None Seen) /HPF Urine Culture Reflexed (NO) 01/09/23 01/09/23 01/09/23 Range/Units 17:15 19:23 23:10 WBC (4.0-10.5) x10^3/uL RBC (4.1-5.4) x10^6/uL Hgb (12.0-16.0) g/dL Hct (35-47) % MCV (78-100) fL MCH (26-32) pg MCHC (32-36) g/dL RDW (11.5-14.0) % Plt Count (150-450) x10^3/uL MPV (7.5-11.0) fL Gran % (36.0-66.0) % Immature Gran % (Auto) (0.00-0.4) % Nucleat RBC Rel Count (0.00-0.1) % Eos # (Auto) (0-0.5) x10^3/uL Immature Gran # (Auto) (0.00-0.03) x10^3u/L Absolute Lymphs (auto) (1.0-4.6) x10^3/uL Absolute Monos (auto) (0.0-1.3) x10^3/uL Absolute Nucleated RBC (0.00-0.01) x10^3u/L Lymphocytes % (24.0-44.0) % Monocytes % (0.0-12.0) % Eosinophils % (0.00-5.0) % Basophils % (0.0-0.4) % Absolute Granulocytes (1.4-6.9) x10^3/uL Basophils # (0-0.4) x10^3/uL Sodium (137-145) mmol/L Potassium (3.5-5.1) mmol/L Chloride (98-107) mmol/L Carbon Dioxide (22-30) mmol/L Anion Gap (5-15) MEQ/L BUN (7-17) mg/dL Creatinine (0.52-1.04) mg/dL Estimated GFR ML/MIN Glucose (74-106) mg/dL Calcium (8.4-10.2) mg/dL Total Bilirubin (0.2-1.3) mg/dL AST (14-36) U/L ALT (0-35) U/L Alkaline Phosphatase (38-126) U/L Troponin I < 0.012 < 0.012 (0.000-0.034) ng/mL NT-Pro-B Natriuret Pep (<300) pg/mL Serum Total Protein (6.3-8.2) g/dL Albumin (3.5-5.0) g/dL Urine Color Yellow (Yellow) Urine Appearance Clear (Clear) Urine pH 6.0 (4.6-8.0) Ur Specific [place] <=1.005 (1.005-1.030) Urine Protein Negative (Negative) Urine Glucose (UA) Negative (Negative) mg/dL Urine Ketones Negative (Negative) Urine Blood Negative (Negative) Urine Nitrite Negative (Negative) Urine Bilirubin Negative (Negative) Urine Urobilinogen 0.2 (0.2) mg/dL Ur Leukocyte Esterase Negative (Negative) U Hyaline Cast (Auto) NONE SEEN (0-2) /LPF Urine Microscopic RBC 0-2 (0-5) /HPF Urine Microscopic WBC 0-2 (0-5) /HPF Ur Epithelial Cells None Seen (None Seen) /HPF Urine Bacteria None Seen (None Seen) /HPF Urine Culture Reflexed NO (NO) 01/10/23 01/10/23 Range/Units 04:11 04:11 WBC 6.9 (4.0-10.5) x10^3/uL RBC 3.41 L (4.1-5.4) x10^6/uL Hgb 10.2 L (12.0-16.0) g/dL Hct 31.3 L (35-47) % MCV 91.8 (78-100) fL MCH 29.9 (26-32) pg MCHC 32.6 (32-36) g/dL RDW 12.6 (11.5-14.0) % Plt Count 232 (150-450) x10^3/uL MPV 10.3 (7.5-11.0) fL Gran % 63.2 (36.0-66.0) % Immature Gran % (Auto) 0.4 (0.00-0.4) % Nucleat RBC Rel Count 0.0 (0.00-0.1) % Eos # (Auto) 0.29 (0-0.5) x10^3/uL Immature Gran # (Auto) 0.03 (0.00-0.03) x10^3u/L Absolute Lymphs (auto) 1.42 (1.0-4.6) x10^3/uL Absolute Monos (auto) 0.76 (0.0-1.3) x10^3/uL Absolute Nucleated RBC 0.00 (0.00-0.01) x10^3u/L Lymphocytes % 20.7 L (24.0-44.0) % Monocytes % 11.1 (0.0-12.0) % Eosinophils % 4.2 (0.00-5.0) % Basophils % 0.4 (0.0-0.4) % Absolute Granulocytes 4.34 (1.4-6.9) x10^3/uL Basophils # 0.03 (0-0.4) x10^3/uL Sodium 130 L (137-145) mmol/L Potassium 4.1 (3.5-5.1) mmol/L Chloride 100 (98-107) mmol/L Carbon Dioxide 22 (22-30) mmol/L Anion Gap 11.4 (5-15) MEQ/L BUN 17 (7-17) mg/dL Creatinine 1.13 H (0.52-1.04) mg/dL Estimated GFR 48.2 ML/MIN Glucose 99 (74-106) mg/dL Calcium 9.1 (8.4-10.2) mg/dL Total Bilirubin 0.50 (0.2-1.3) mg/dL AST 28 (14-36) U/L ALT 16 (0-35) U/L Alkaline Phosphatase 71 (38-126) U/L Troponin I (0.000-0.034) ng/mL NT-Pro-B Natriuret Pep (<300) pg/mL Serum Total Protein 6.4 (6.3-8.2) g/dL Albumin 3.5 (3.5-5.0) g/dL Urine Color (Yellow) Urine Appearance (Clear) Urine pH (4.6-8.0) Ur Specific [place] (1.005-1.030) Urine Protein (Negative) Urine Glucose (UA) (Negative) mg/dL Urine Ketones (Negative) Urine Blood (Negative) Urine Nitrite (Negative) Urine Bilirubin (Negative) Urine Urobilinogen (0.2) mg/dL Ur Leukocyte Esterase (Negative) U Hyaline Cast (Auto) (0-2) /LPF Urine Microscopic RBC (0-5) /HPF Urine Microscopic WBC (0-5) /HPF Ur Epithelial Cells (None Seen) /HPF Urine Bacteria (None Seen) /HPF Urine Culture Reflexed (NO) - Radiology Exams Ordered Rad Exams-Entire Visit: Radiology Procedures Category Date Time Status CHEST 1 VIEW (PORTABLE) Stat Exams 01/09/23 14:39 Completed Discharge Exam General Appearance: no apparent distress, alert Neurologic Exam: alert, oriented x 3, cooperative, acid treater II-XII nml as tested, normal mood/affect, nml cerebellar function Eye Exam: PERRL, EOMI, eyes nml inspection Ears, Nose, Throat Exam: normal ENT inspection Neck Exam: normal inspection, non-tender, supple, full range of motion Respiratory Exam: normal breath sounds, lungs clear Cardiovascular Exam: regular rate/rhythm, normal heart sounds Gastrointestinal/Abdomen Exam: soft, normal bowel sounds Back Exam: normal range of motion Extremity Exam: normal inspection, normal range of motion Skin Exam: normal color Final Diagnosis/Problem List - Final Discharge Diagnosis/Problem (1) Chest pain, rule out acute myocardial infarction Current Visit: Yes Status: Acute Assessment & Plan: Continue regimen and follow up with Dr. Mitchell. Code(s): R07.9 - CHEST PAIN, UNSPECIFIED (2) UTI (urinary tract infection) Current Visit: No Status: Acute Assessment & Plan: Already treated. Code(s): N39.0 - URINARY TRACT INFECTION, SITE NOT SPECIFIED (3) Hypertension Current Visit: No Status: Acute Assessment & Plan: Continue current regimen. Code(s): I10 - ESSENTIAL (PRIMARY) HYPERTENSION Telemedicine Encounter - Telemedicine Encounter Telemedicine Encounter: The entirety of this encounter was performed via Telemedicine" - Discharge Disposition: Home, Self-Care Condition: Stable Prescriptions: Continue Simvastatin 20Mg [Zocor 20Mg] 20 mg PO QPM Sacubitril/Valsartan [Entresto 24 mg-26 mg Tablet] 1 each PO BID Aspirin [Aspirin EC] 81 mg PO DAILY Cefdinir 300 mg PO BID Follow up with: SOSA ELIZONDO [COURTESY STAFF] - SUSHMA MITCHELL [CONSULTING PHYSICIAN] - KORIN OCONNOR MD [Primary Care Provider] -
[2023-01-12 23:26] VITALS: O2SAT 98
== END 2023-01-10 15:30 | disposition home or self-care (01) ==
LOC: ED 14:31 → MED SURG 16:29
PROVIDERS: ADMIT Internal Medicine; ATTEND Internal Medicine
DX: R07.9 Chest pain, unspecified (principal); N39.0 Urinary tract infection, site not specified; I10 Essential (primary) hypertension; I25.10 Atherosclerotic heart disease of native coronary artery without angina pectoris; E78.5 Hyperlipidemia, unspecified; Z95.1 Presence of aortocoronary bypass graft; Z79.899 Other long term (current) drug therapy; Z20.828 Contact with and (suspected) exposure to other viral communicable diseases; Z85.828 Personal history of other malignant neoplasm of skin
CPT/HCPCS: 36000; 36415; 71045; 80053; 81001; 83880; 84484; 85025; 93005; 93041; 99285; Q3014; 93268; J1644; J2405; A9270-GY; G0378

== ENCOUNTER 2023-07-21 12:55 | Observation (INO) | payer MEDICARE, OTHER ==
[2023-07-21 13:50] LABS: INFLUENZA A NEGATIVE (NEGATIVE); INFLUENZA B NEGATIVE (NEGATIVE); RESPIRATORY SYNCTIAL VIRUS NEGATIVE (NEGATIVE); SARS-CoV-2 Xpert Express NEGATIVE (NEGATIVE)
--- NOTE | 2023-07-21 15:31 | PCM.HP ---
<RANDY BURROWS - Last Filed: 07/21/23 15:43> History of Present Illness - Chief Complaint Chief Complaint: Ulcer of right lower limb Date: 07/21/23 History of Present Illness: is a 88 year old female with a pmhx of CHF,CAD, CABG (x1 in 2005), CKD, HTN, HLD, raynauds disease, skin cancer to the RLE with chemotherapy/radiation, and venous insufficiency who is a direct admission for evaluation of wound to the right lower extremity, concerning for superimposed cellulitis with podiatry consulted for wound debridement to be performed 07/22/23. Patient reports that in March of 2022 she had a lesion on her right lower extremity evaluated by Dr. Lexy Kennedy (dermatology) where later biopsy confirmed it to be skin cancer (unknown type). She underwent chemotherapy and radiation for this. Patient states she has CHF (on Entrestro) and was experiencing BLE edema which caused her wound to open back up. The wound has been very red and painful making it difficult for her to bear weight causing unsteadiness in her gait. She also mentions a recent infection with cdiff secondary to antibiotic she was on for a UTI. Denies fever,cough, sob, cp, abdominal pain, URIARTE, dizziness, N/V/D. - Review of Systems Constitutional: Fatigue, Weakness Eyes: No Symptoms Ears, Nose, & Throat: No Symptoms Respiratory: Short Of Breath Cardiac: Edema Abdominal/Gastrointestinal: No Symptoms Genitourinary Symptoms: No Symptoms Musculoskeletal: No Symptoms Skin: Cellulitis (RLE), Skin Lesions (RLE covered in dressing) Neurological: No Symptoms Psychological: No Symptoms Endocrine: No Symptoms Hematologic/Lymphatic: No Symptoms Immunological/Allergic: No Symptoms Medications & Allergies Home Medications: Home Medication List Aspirin [Aspirin EC] 81 mg PO DAILY 07/06/21 [History Confirmed 01/09/23] Simvastatin 20Mg [Zocor 20Mg] 20 mg PO DAILY 07/06/21 [History Confirmed 01/09/23] Furosemide 20 mg [Lasix 20 mg] 20 mg PO DAILY 07/21/23 [History Confirmed 07/21/23] Sacubitril/Valsartan [Entresto 49 mg-51 mg Tablet] 49 - 51 mg PO BID 07/21/23 [History Confirmed 07/21/23] Tramadol HCl 50 mg [Ultram 50 mg] 50 mg PO Q6H PRN PRN 07/21/23 [History Confirmed 07/21/23] Allergies/Adverse Reactions: Allergies Allergy/AdvReac Type Severity Reaction Status Date / Time amoxicillin [Amoxicillin] Allergy Intermediate facial Verified 01/09/23 14:32 swelling and flushed promethazine [From Phenergan] Allergy Mild Verified 01/09/23 14:32 metronidazole [From Flagyl] Allergy Unknown Verified 01/09/23 14:32 Penicillins Allergy Unknown Verified 01/09/23 14:32 Sulfa (Sulfonamide Allergy Unknown Verified 01/09/23 14:32 Antibiotics) - Past Medical History Past Medical History: Yes Neurological History: No Pertinent History ENT History: Cataracts Cardiac History: Coronary Artery Disease, High Cholesterol, Other Respiratory History: Asthma Endocrine Medical History: No Pertinent History Musculoskelatal History: No Pertinent History GI Medical History: No Pertinent History, Other History: Other Pyscho-Social History: No Pertinent History Reproductive Disorders: Fibroids Comment: PERICARDICECTOMY 2005; cdiff 09/2015, SKIN CA TO RLE (RADIATION) - Past Surgical History Past Surgical History: Yes Neuro Surgical History: No Pertinent History Cardiac History: Cardiac Catheterization, Cardiac Stent, Other GI Surgical History: Appendectomy Genitourinary Surgical Hx: No Pertinent History Musculskeletal Surgical Hx: No Pertinent History Female Surgical History: Hysterectomy Other Surgical History: surg on heart - Social History Smoking Status: Never smoker Exposure to second hand smoke: No Alcohol: None Drug Use: none - Physical Exam General Appearance: no apparent distress Neurologic Exam: alert, oriented x 3, cooperative Eye Exam: PERRL/EOMI Ears, Nose, Throat Exam: normal ENT inspection Neck Exam: normal inspection Respiratory Exam: normal breath sounds, lungs clear Cardiovascular Exam: regular rate/rhythm, normal heart sounds Gastrointestinal/Abdomen Exam: soft, normal bowel sounds Pelvic Exam: not done Rectal Exam: deferred Back Exam: normal inspection Extremity Exam: inflammation Skin Exam: other (RLE with ulceration, covered in dressing) Results - Labs Lab/Micro Results: Lab Results-Last 24 Hours 07/21/23 Range/Units 13:13 Influenza Type A Ag NEGATIVE (NEGATIVE) Influenza Type B Ag NEGATIVE (NEGATIVE) RSV (PCR) NEGATIVE (NEGATIVE) SARS-CoV-2 (PCR) NEGATIVE (NEGATIVE) Assessment/Plan (1) Ulcer of right lower extremity Current Visit: Yes Status: Acute Assessment & Plan: -Podiatry consulted, plan for I&D 07/22/23 -Pain control -Imaging reviewed, venous doppler negative for DVT -Hold abx until cultures obtained Code(s): L97.919 - NON-PRS CHRONIC ULC UNSP PRT OF R LOW LEG W UNSP SEVERITY (2) CHF (congestive heart failure) Current Visit: Yes Status: Acute Assessment & Plan: -Does not appear to be in exacerbation -Continue entresto -No recent echo available, will obtain from Dr. 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 Mitchell Code(s): I25.10 - ATHSCL HEART DISEASE OF [place] CORONARY ARTERY W/O ANG PCTRS <MACK MATHEW - Last Filed: 07/21/23 20:53> History of Present Illness - Chief Complaint History of Present Illness: is a 88 year old female. - Physical Exam Vital Signs: Vital Signs - 24 hr Temp Pulse Resp BP Pulse Ox 07/21/23 19:21 98.0 F 85 16 144/64 99 07/21/23 16:00 97.8 F 108 H 16 171/79 99 07/21/23 15:01 97.8 F 108 H 16 79 99 Results - Labs Lab/Micro Results: Lab Results-Last 24 Hours 07/21/23 07/21/23 07/21/23 Range/Units 13:13 16:05 16:05 WBC 7.8 (4.0-10.5) x10^3/uL RBC 3.80 L (4.1-5.4) x10^6/uL Hgb 11.2 L (12.0-16.0) g/dL Hct 34.8 L (35-47) % MCV 91.6 (78-100) fL MCH 29.5 (26-32) pg MCHC 32.2 (32-36) g/dL RDW 12.8 (11.5-14.0) % Plt Count 213 (150-450) x10^3/uL MPV 10.0 (7.5-11.0) fL Gran % 67.2 H (36.0-66.0) % Immature Gran % (Auto) 0.4 (0.00-0.4) % Nucleat RBC Rel Count 0.0 (0.00-0.1) % Eos # (Auto) 0.23 (0-0.5) x10^3/uL Immature Gran # (Auto) 0.03 (0.00-0.03) x10^3u/L Absolute Lymphs (auto) 1.74 (1.0-4.6) x10^3/uL Absolute Monos (auto) 0.55 (0.0-1.3) x10^3/uL Absolute Nucleated RBC 0.00 (0.00-0.01) x10^3u/L Lymphocytes % 22.2 L (24.0-44.0) % Monocytes % 7.0 (0.0-12.0) % Eosinophils % 2.9 (0.00-5.0) % Basophils % 0.3 (0.0-0.4) % Absolute Granulocytes 5.27 (1.4-6.9) x10^3/uL Basophils # 0.02 (0-0.4) x10^3/uL Sodium 131 L (137-145) mmol/L Potassium 4.1 (3.5-5.1) mmol/L Chloride 99 (98-107) mmol/L Carbon Dioxide 25 (22-30) mmol/L Anion Gap 11.3 (5-15) MEQ/L BUN 18 H (7-17) mg/dL Creatinine 1.15 H (0.52-1.04) mg/dL Estimated GFR 45.5 ML/MIN Glucose 135 H (74-106) mg/dL Calcium 10.8 H (8.4-10.2) mg/dL Total Bilirubin 0.80 (0.2-1.3) mg/dL AST 32 (14-36) U/L ALT 19 (0-35) U/L Alkaline Phosphatase 107 (38-126) U/L NT-Pro-B Natriuret Pep (<300) pg/mL Serum Total Protein 7.5 (6.3-8.2) g/dL Albumin 4.2 (3.5-5.0) g/dL Influenza Type A Ag NEGATIVE (NEGATIVE) Influenza Type B Ag NEGATIVE (NEGATIVE) RSV (PCR) NEGATIVE (NEGATIVE) SARS-CoV-2 (PCR) NEGATIVE (NEGATIVE) 07/21/23 Range/Units Unknown WBC (4.0-10.5) x10^3/uL RBC (4.1-5.4) x10^6/uL Hgb (12.0-16.0) g/dL Hct (35-47) % MCV (78-100) fL MCH (26-32) pg MCHC (32-36) g/dL RDW (11.5-14.0) % Plt Count (150-450) x10^3/uL MPV (7.5-11.0) fL Gran % (36.0-66.0) % Immature Gran % (Auto) (0.00-0.4) % Nucleat RBC Rel Count (0.00-0.1) % Eos # (Auto) (0-0.5) x10^3/uL Immature Gran # (Auto) (0.00-0.03) x10^3u/L Absolute Lymphs (auto) (1.0-4.6) x10^3/uL Absolute Monos (auto) (0.0-1.3) x10^3/uL Absolute Nucleated RBC (0.00-0.01) x10^3u/L Lymphocytes % (24.0-44.0) % Monocytes % (0.0-12.0) % Eosinophils % (0.00-5.0) % Basophils % (0.0-0.4) % Absolute Granulocytes (1.4-6.9) x10^3/uL Basophils # (0-0.4) x10^3/uL Sodium (137-145) mmol/L Potassium (3.5-5.1) mmol/L Chloride (98-107) mmol/L Carbon Dioxide (22-30) mmol/L Anion Gap (5-15) MEQ/L BUN (7-17) mg/dL Creatinine (0.52-1.04) mg/dL Estimated GFR ML/MIN Glucose (74-106) mg/dL Calcium (8.4-10.2) mg/dL Total Bilirubin (0.2-1.3) mg/dL AST (14-36) U/L ALT (0-35) U/L Alkaline Phosphatase (38-126) U/L NT-Pro-B Natriuret Pep 2620 (<300) pg/mL Serum Total Protein (6.3-8.2) g/dL Albumin (3.5-5.0) g/dL Influenza Type A Ag (NEGATIVE) Influenza Type B Ag (NEGATIVE) RSV (PCR) (NEGATIVE) SARS-CoV-2 (PCR) (NEGATIVE) SIERRA Encounter - SIERRA Encounter Attestation SIERRA Encounter Attestation: "IhavepersonallyseenandexMINNIE Melissa andhavediscussed pertinent aspects of their care with Randy Dumont agree with the history, physical exam (any modifications based on my personal exam will be noted below), assessment, and plan as outlined in original note. Please see immediately below for my summary of findings and additional assessment and plan along with any meaningful corrections/explanations to the Subjective/Objective portions of the SIERRA note will be noted." My portion of the encounter took place via telemedicine. -Chronic right lower extremity wound, plan for debridement in the morning by podiatry. Will initiate antibiotics after intra op cultures done. Of note, patient recently had Cdiff due to antibiotics taken for UTI.
[2023-07-21 16:11] LABS: Absolute Neutrophil Ct (ANC) 5.27 x10^3/uL (1.4-6.9); BASOPHIL % 0.3 % (0.0-0.4); Basophil (Absolute #) 0.02 x10^3/uL (0-0.4); Eosinophil % 2.9 % (0.00-5.0); Eosinophil (Absolute #) 0.23 x10^3/uL (0-0.5); Hematocrit 34.8 % (35-47); Hemoglobin 11.2 g/dL (12.0-16.0); IMMATURE GRAN # 0.03 x10^3u/L (0.00-0.03); IMMATURE GRAN % 0.4 % (0.00-0.4); Lymphocyte (Absolute #) 1.74 x10^3/uL (1.0-4.6); Lymphocytes % 22.2 % (24.0-44.0); Mean Cell Volume 91.6 fL (78-100); Mean Corpuscular Hemoglobin 29.5 pg (26-32); Mean Corpuscular Hgb Concent. 32.2 g/dL (32-36); Monocyte (Absolute #) 0.55 x10^3/uL (0.0-1.3); Neutrophil % 67.2 % (36.0-66.0); Platelet Count 213 x10^3/uL (150-450); Red Cell Distribution Width 12.8 % (11.5-14.0); White Blood Count 7.8 x10^3/uL (4.0-10.5)
[2023-07-21 17:48] LABS: ALBUMIN 4.2 g/dL (3.5-5.0); ANION GAP 11.3 MEQ/L (5-15); BILIRUBIN,TOTAL 0.8 mg/dL (0.2-1.3); Calcium 10.8 mg/dL (8.4-10.2); Creatinine 1 1.15 mg/dL (0.52-1.04); EST GLOMERULAR FILTRATION RATE 45.5 ML/MIN; Potassium 4.1 mmol/L (3.5-5.1); Total Protein 7.5 g/dL (6.3-8.2)
[2023-07-21] MEDS: TYLENOL 325 MG PO PRN (17:54)
[2023-07-21] MEDS: ULTRAM 50 MG PO PRN (19:56)
[2023-07-21] MEDS: ZOCOR 20MG PO SCH (20:31)
[2023-07-21] MEDS: ENTRESTO 49 MG-51 MG TABLET PO SCH (20:31)
[2023-07-22 04:59] LABS: Absolute Neutrophil Ct (ANC) 3.72 x10^3/uL (1.4-6.9); BASOPHIL % 0.6 % (0.0-0.4); Basophil (Absolute #) 0.04 x10^3/uL (0-0.4); Eosinophil % 6.1 % (0.00-5.0); Eosinophil (Absolute #) 0.43 x10^3/uL (0-0.5); Hematocrit 32.7 % (35-47); Hemoglobin 10.3 g/dL (12.0-16.0); IMMATURE GRAN # 0.01 x10^3u/L (0.00-0.03); IMMATURE GRAN % 0.1 % (0.00-0.4); Lymphocyte (Absolute #) 2.24 x10^3/uL (1.0-4.6); Lymphocytes % 31.6 % (24.0-44.0); Mean Cell Volume 90.8 fL (78-100); Mean Corpuscular Hemoglobin 28.6 pg (26-32); Mean Corpuscular Hgb Concent. 31.5 g/dL (32-36); Mean Platelet Volume 10.5 fL (7.5-11.0); Monocyte (Absolute #) 0.64 x10^3/uL (0.0-1.3); Neutrophil % 52.6 % (36.0-66.0); Platelet Count 224 x10^3/uL (150-450); Red Cell Distribution Width 12.9 % (11.5-14.0); White Blood Count 7.1 x10^3/uL (4.0-10.5)
[2023-07-22 05:08] LABS: ALBUMIN 3.8 g/dL (3.5-5.0); ANION GAP 8.7 MEQ/L (5-15); Calcium 10.1 mg/dL (8.4-10.2); Creatinine 1 1.16 mg/dL (0.52-1.04); EST GLOMERULAR FILTRATION RATE 45.1 ML/MIN; Potassium 4.3 mmol/L (3.5-5.1); Total Protein 6.9 g/dL (6.3-8.2)
--- NOTE | 2023-07-22 05:14 | PCM.NOTE ---
Date and Time: 07/22/23512 Subjective Assessment: is a 88 year old female with a pmhx of CHF,CAD, CABG (x1 in 2005), CKD, HTN, HLD, raynauds disease, skin cancer to the RLE with chemotherapy/radiation, and venous insufficiency who is a direct admission for evaluation of wound to the right lower extremity, concerning for superimposed cellulitis with podiatry consulted for wound debridement to be performed 07/22/23. Patient reports that in March of 2022 she had a lesion on her right lower extremity evaluated by Dr. Lexy Kennedy (dermatology) where later biopsy confirmed it to be skin cancer (unknown type). She underwent chemotherapy and radiation for this. Patient states she has CHF (on Entrestro) and was experiencing BLE edema which caused her wound to open back up. The wound has been very red and painful making it difficult for her to bear weight causing unsteadiness in her gait. She also mentions a recent infection with cdiff secondary to antibiotic she was on for a UTI. 07/22/23: Met with patient bedside. No overnight events. Endorses continued pain to her RLE which she rates 5/10 this morning. Plan is for I&D today. Denies fever ,cough, sob, cp, abdominal pain, URIARTE, dizziness, N/V/D. <RANDY BURROWS - Last Filed: 07/22/23 09:45> Date and Time: 07/22/232235 <MACK MATHEW - Last Filed: 07/22/23 22:37> - Review of Systems Constitutional: No Symptoms Eyes: No Symptoms Ears, Nose, & Throat: No Symptoms Respiratory: No Symptoms Cardiac: No Symptoms Abdominal/Gastrointestinal: No Symptoms Genitourinary Symptoms: No Symptoms Musculoskeletal: No Symptoms Skin: Other (RLE wound covered in dressing) Neurological: No Symptoms Psychological: No Symptoms Endocrine: No Symptoms Hematologic/Lymphatic: No Symptoms Immunological/Allergic: No Symptoms <RANDY BURROWS - Last Filed: 07/22/23 09:45> Objective Exam General Appearance: no apparent distress Neurologic Exam: alert, oriented x 3, cooperative Skin Exam: normal color Wound Assessment: Skin/Wound Assessment Wound/Incision Assessment Start: 07/21/23 15:28 Text: Status: Active Freq: Q6H Protocol: Document 07/22/23 02:00 MM (Rec: 07/22/23 02:09 MM [id number]) Wound/Incision Assessment Right Lower Other Wound Assessment Shift Assessment Wound Type cellulitis/ulcer Drainage Amount None Drainage Odor None/Absent Comment pt has a dressing in place to the RLE, dressing is clean and dry, pt sensation intact, ROM limited due to pain, intermittent muscle spasms. Wound Photo Photo Taken No Eye Exam: PERRL Ears, Nose, Throat Exam: normal ENT inspection Neck Exam: normal inspection Respiratory Exam: normal breath sounds, lungs clear Cardiovascular Exam: regular rate/rhythm, normal heart sounds Gastrointestinal/Abdomen Exam: soft, normal bowel sounds Extremity Exam: other (RLE wound covered in dressing) Back Exam: normal inspection Pelvic Exam: deferred <RANDY BURROWS - Last Filed: 07/22/23 09:45> Wound Assessment: Skin/Wound Assessment Wound/Incision Assessment Start: 07/21/23 15:28 Text: Status: Active Freq: Q6H Protocol: Document 07/22/23 21:00 MP (Rec: 07/22/23 21:17 MP [id number]) Wound/Incision Assessment Right Lower Other Wound Assessment Shift Assessment Wound Type cellulitis/ulcer Drainage Amount None Drainage Odor None/Absent Comment pt has a dressing in place to the RLE post surgery today Wound Photo Photo Taken No <MACK MATHEW - Last Filed: 07/22/23 22:37> OBJECTIVE DATA Vital Signs: Vital Signs - 24 hr Temp Pulse Resp BP Pulse Ox 07/22/23 04:00 97.0 F 105 H 16 114/57 94 L 07/22/23 02:24 97.9 F 97 H 16 130/60 93 L 07/21/23 23:26 97.9 F 97 H 16 130/60 93 L 07/21/23 19:21 98.0 F 85 16 144/64 99 07/21/23 16:00 97.8 F 108 H 16 171/79 99 07/21/23 15:01 97.8 F 108 H 16 171/79 99 Pain Assessment - Last Documented Pain Intensity 0 Pain Scale Used 0-10 Pain Scale Intake and Output: Intake & Output 07/19/23 07/20/23 07/21/23 07/22/23 11:59 11:59 11:59 11:59 Intake Total 360 Balance 360 Weight 59.8 kg Lab Results: Lab Results-Last 24 Hours 07/21/23 07/21/23 07/21/23 Range/Units 13:13 16:05 16:05 WBC 7.8 (4.0-10.5) x10^3/uL RBC 3.80 L (4.1-5.4) x10^6/uL Hgb 11.2 L (12.0-16.0) g/dL Hct 34.8 L (35-47) % MCV 91.6 (78-100) fL MCH 29.5 (26-32) pg MCHC 32.2 (32-36) g/dL RDW 12.8 (11.5-14.0) % Plt Count 213 (150-450) x10^3/uL MPV 10.0 (7.5-11.0) fL Gran % 67.2 H (36.0-66.0) % Immature Gran % (Auto) 0.4 (0.00-0.4) % Nucleat RBC Rel Count 0.0 (0.00-0.1) % Eos # (Auto) 0.23 (0-0.5) x10^3/uL Immature Gran # (Auto) 0.03 (0.00-0.03) x10^3u/L Absolute Lymphs (auto) 1.74 (1.0-4.6) x10^3/uL Absolute Monos (auto) 0.55 (0.0-1.3) x10^3/uL Absolute Nucleated RBC 0.00 (0.00-0.01) x10^3u/L Lymphocytes % 22.2 L (24.0-44.0) % Monocytes % 7.0 (0.0-12.0) % Eosinophils % 2.9 (0.00-5.0) % Basophils % 0.3 (0.0-0.4) % Absolute Granulocytes 5.27 (1.4-6.9) x10^3/uL Basophils # 0.02 (0-0.4) x10^3/uL Sodium 131 L (137-145) mmol/L Potassium 4.1 (3.5-5.1) mmol/L Chloride 99 (98-107) mmol/L Carbon Dioxide 25 (22-30) mmol/L Anion Gap 11.3 (5-15) MEQ/L BUN 18 H (7-17) mg/dL Creatinine 1.15 H (0.52-1.04) mg/dL Estimated GFR 45.5 ML/MIN Glucose 135 H (74-106) mg/dL Calcium 10.8 H (8.4-10.2) mg/dL Total Bilirubin 0.80 (0.2-1.3) mg/dL AST 32 (14-36) U/L ALT 19 (0-35) U/L Alkaline Phosphatase 107 (38-126) U/L NT-Pro-B Natriuret Pep (<300) pg/mL Serum Total Protein 7.5 (6.3-8.2) g/dL Albumin 4.2 (3.5-5.0) g/dL Influenza Type A Ag NEGATIVE (NEGATIVE) Influenza Type B Ag NEGATIVE (NEGATIVE) RSV (PCR) NEGATIVE (NEGATIVE) SARS-CoV-2 (PCR) NEGATIVE (NEGATIVE) 07/21/23 07/22/23 07/22/23 Range/Units Unknown 04:47 04:47 WBC 7.1 (4.0-10.5) x10^3/uL RBC 3.60 L (4.1-5.4) x10^6/uL Hgb 10.3 L (12.0-16.0) g/dL Hct 32.7 L (35-47) % MCV 90.8 (78-100) fL MCH 28.6 (26-32) pg MCHC 31.5 L (32-36) g/dL RDW 12.9 (11.5-14.0) % Plt Count 224 (150-450) x10^3/uL MPV 10.5 (7.5-11.0) fL Gran % 52.6 (36.0-66.0) % Immature Gran % (Auto) 0.1 (0.00-0.4) % Nucleat RBC Rel Count 0.0 (0.00-0.1) % Eos # (Auto) 0.43 (0-0.5) x10^3/uL Immature Gran # (Auto) 0.01 (0.00-0.03) x10^3u/L Absolute Lymphs (auto) 2.24 (1.0-4.6) x10^3/uL Absolute Monos (auto) 0.64 (0.0-1.3) x10^3/uL Absolute Nucleated RBC 0.00 (0.00-0.01) x10^3u/L Lymphocytes % 31.6 (24.0-44.0) % Monocytes % 9.0 (0.0-12.0) % Eosinophils % 6.1 H (0.00-5.0) % Basophils % 0.6 (0.0-0.4) % Absolute Granulocytes 3.72 (1.4-6.9) x10^3/uL Basophils # 0.04 (0-0.4) x10^3/uL Sodium 132 L (137-145) mmol/L Potassium 4.3 (3.5-5.1) mmol/L Chloride 100 (98-107) mmol/L Carbon Dioxide 28 (22-30) mmol/L Anion Gap 8.7 (5-15) MEQ/L BUN 17 (7-17) mg/dL Creatinine 1.16 H (0.52-1.04) mg/dL Estimated GFR 45.1 ML/MIN Glucose 93 (74-106) mg/dL Calcium 10.1 (8.4-10.2) mg/dL Total Bilirubin 1.00 (0.2-1.3) mg/dL AST 29 (14-36) U/L ALT 16 (0-35) U/L Alkaline Phosphatase 94 (38-126) U/L NT-Pro-B Natriuret Pep 2620 (<300) pg/mL Serum Total Protein 6.9 (6.3-8.2) g/dL Albumin 3.8 (3.5-5.0) g/dL Influenza Type A Ag (NEGATIVE) Influenza Type B Ag (NEGATIVE) RSV (PCR) (NEGATIVE) SARS-CoV-2 (PCR) (NEGATIVE) <RANDY BURROWS - Last Filed: 07/22/23 09:45> Vital Signs: Vital Signs - 24 hr Temp Pulse Resp BP Pulse Ox 07/22/23 20:00 98.8 F 86 17 136/60 96 07/22/23 15:19 97.6 F 89 16 145/84 98 07/22/23 12:24 97.6 F 85 16 136/63 97 07/22/23 11:16 97.6 F 85 16 136/63 97 07/22/23 06:59 97.6 F 75 16 133/63 96 07/22/23 04:00 97.0 F 105 H 16 114/57 94 L 07/22/23 02:24 97.9 F 97 H 16 130/60 93 L 07/21/23 23:26 97.9 F 97 H 16 130/60 93 L Pain Assessment - Last Documented Pain Intensity 4 Pain Scale Used 0-10 Pain Scale Intake and Output: Intake & Output 07/20/23 07/21/23 07/22/23 07/23/23 11:59 11:59 11:59 11:59 Intake Total 360 280 Balance 360 280 Weight 59.8 kg 59.8 kg Lab Results: Lab Results-Last 24 Hours 07/22/23 07/22/23 Range/Units 04:47 04:47 WBC 7.1 (4.0-10.5) x10^3/uL RBC 3.60 L (4.1-5.4) x10^6/uL Hgb 10.3 L (12.0-16.0) g/dL Hct 32.7 L (35-47) % MCV 90.8 (78-100) fL MCH 28.6 (26-32) pg MCHC 31.5 L (32-36) g/dL RDW 12.9 (11.5-14.0) % Plt Count 224 (150-450) x10^3/uL MPV 10.5 (7.5-11.0) fL Gran % 52.6 (36.0-66.0) % Immature Gran % (Auto) 0.1 (0.00-0.4) % Nucleat RBC Rel Count 0.0 (0.00-0.1) % Eos # (Auto) 0.43 (0-0.5) x10^3/uL Immature Gran # (Auto) 0.01 (0.00-0.03) x10^3u/L Absolute Lymphs (auto) 2.24 (1.0-4.6) x10^3/uL Absolute Monos (auto) 0.64 (0.0-1.3) x10^3/uL Absolute Nucleated RBC 0.00 (0.00-0.01) x10^3u/L Lymphocytes % 31.6 (24.0-44.0) % Monocytes % 9.0 (0.0-12.0) % Eosinophils % 6.1 H (0.00-5.0) % Basophils % 0.6 (0.0-0.4) % Absolute Granulocytes 3.72 (1.4-6.9) x10^3/uL Basophils # 0.04 (0-0.4) x10^3/uL Sodium 132 L (137-145) mmol/L Potassium 4.3 (3.5-5.1) mmol/L Chloride 100 (98-107) mmol/L Carbon Dioxide 28 (22-30) mmol/L Anion Gap 8.7 (5-15) MEQ/L BUN 17 (7-17) mg/dL Creatinine 1.16 H (0.52-1.04) mg/dL Estimated GFR 45.1 ML/MIN Glucose 93 (74-106) mg/dL Calcium 10.1 (8.4-10.2) mg/dL Total Bilirubin 1.00 (0.2-1.3) mg/dL AST 29 (14-36) U/L ALT 16 (0-35) U/L Alkaline Phosphatase 94 (38-126) U/L Serum Total Protein 6.9 (6.3-8.2) g/dL Albumin 3.8 (3.5-5.0) g/dL <MACK MATHEW - Last Filed: 07/22/23 22:37> Assessment/Plan (1) Ulcer of right lower extremity Current Visit: Yes Status: Acute Assessment & Plan: -Podiatry consulted, plan for I&D 07/22/23 -Pain control -Imaging reviewed, venous doppler negative for DVT -Hold abx until cultures obtained 07/22/23: -Plan for I&D today with cultures, most likely abx following Code(s): L97.919 - NON-PRS CHRONIC ULC UNSP PRT OF R LOW LEG W UNSP SEVERITY (2) CHF (congestive heart failure) Current Visit: Yes Status: Acute Assessment & Plan: -Does not appear to be in exacerbation -Continue entresto -No recent echo available, will obtain from Dr. 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 Current Visit: Yes Status: Acute Code(s): Z85.89 - PERSONAL HISTORY OF MALIGNANT NEOPLASM OF ORGANS AND SYSTEMS (5) CAD (coronary artery disease) Current Visit: Yes Status: Acute Code(s): I25.10 - ATHSCL HEART DISEASE OF [place] CORONARY ARTERY W/O ANG PCTRS <RANDY BURROWS - Last Filed: 07/22/23 09:45> SIERRA Encounter - SIERRA Encounter Attestation SIERRA Encounter Attestation: "IhavepersonallyseenandexamineMoose,MINNIE LFORES andhavediscussed pertinent aspects of their care with Randy Stevenson agree with the history, physical exam (any modifications based on my personal exam will be noted below), assessment, and plan as outlined in original note. Please see immediately below for my summary of findings and additional assessment and plan along with any meaningful corrections/explanations to the Subjective/Objective portions of the SIERRA note will be noted." My portion of the encounter took place via telemedicine. -Patient was seen prior to her surgery. She was very anxious. Especially worried about the possibility of taking antibiotics with history of recent Cdiff. Will follow podiatry post op recommendations. <MACK MATHEW - Last Filed: 07/22/23 22:37>
[2023-07-22] MEDS: Zofran 4 MG/2 ML VIAL IV PRN (10:19)
[2023-07-22] MEDS ORDERED: Marcaine Mpf 0.5% Vial 30 Ml ONE (12:26)
[2023-07-22] MEDS ORDERED: Xylocaine 1% Vial 30 ML PF IJ ONE (12:27)
[2023-07-22] MEDS ORDERED: Lactated Ringers 1,000 ML IV ONE (13:31)
[2023-07-22] MEDS ORDERED: SUBLIMAZE 100 MCG/2 ML ONE (13:48)
[2023-07-22] MEDS ORDERED: Amidate 20 MG/10 ML IV ONE (13:48)
[2023-07-22] MEDS ORDERED: DIPRIVAN 200 MG/20 ML IV ONE (13:48)
[2023-07-22] MEDS ORDERED: Zofran 4 MG/2 ML VIAL ONE (14:56)
[2023-07-22] MEDS: NORCO 5/325 MG PO PRN (17:13)
[2023-07-22] MEDS: SODIUM CHLORIDE 0.9% IV SCH (17:13)
[2023-07-22] MEDS: ECOTRIN 81 MG PO SCH (17:13)
[2023-07-22] MEDS: NEBCIN IV SCH (17:13)
[2023-07-22] MEDS: PHARMACY DOSING REQUEST MC ONE (17:31)
[2023-07-23 04:52] LABS: Absolute Neutrophil Ct (ANC) 3.25 x10^3/uL (1.4-6.9); BASOPHIL % 0.4 % (0.0-0.4); Basophil (Absolute #) 0.03 x10^3/uL (0-0.4); Eosinophil % 7.7 % (0.00-5.0); Eosinophil (Absolute #) 0.53 x10^3/uL (0-0.5); Hematocrit 32.3 % (35-47); Hemoglobin 10.1 g/dL (12.0-16.0); IMMATURE GRAN # 0.01 x10^3u/L (0.00-0.03); IMMATURE GRAN % 0.1 % (0.00-0.4); Lymphocyte (Absolute #) 2.35 x10^3/uL (1.0-4.6); Lymphocytes % 34.4 % (24.0-44.0); Mean Cell Volume 92.3 fL (78-100); Mean Corpuscular Hemoglobin 28.9 pg (26-32); Mean Corpuscular Hgb Concent. 31.3 g/dL (32-36); Mean Platelet Volume 10.4 fL (7.5-11.0); Monocyte (Absolute #) 0.67 x10^3/uL (0.0-1.3); Monocytes % 9.8 % (0.0-12.0); Neutrophil % 47.6 % (36.0-66.0); Platelet Count 218 x10^3/uL (150-450); Red Cell Distribution Width 13.1 % (11.5-14.0); White Blood Count 6.8 x10^3/uL (4.0-10.5)
--- NOTE | 2023-07-23 05:17 | PCM.NOTE ---
Date and Time: 07/23/23 0515 Subjective Assessment: is a 88 year old female with a pmhx of CHF,CAD, CABG (x1 in 2005), CKD, HTN, HLD, raynauds disease, skin cancer to the RLE with chemotherapy/radiation, and venous insufficiency who is a direct admission for evaluation of wound to the right lower extremity, concerning for superimposed cellulitis with podiatry consulted for wound debridement to be performed 07/22/23. Patient reports that in March of 2022 she had a lesion on her right lower extremity evaluated by Dr. Lexy Kennedy (dermatology) where later biopsy confirmed it to be skin cancer (unknown type). She underwent chemotherapy and radiation for this. Patient states she has CHF (on Entrestro) and was experiencing BLE edema which caused her wound to open back up. The wound has been very red and painful making it difficult for her to bear weight causing unsteadiness in her gait. She also mentions a recent infection with cdiff secondary to antibiotic she was on for a UTI. Podiatry performed I&D 07/22/23, patient placed on Tobramycin. Patient may need to follow with ID on discharge pending culture results. 07/23/23: Met with patient bedside. Endorses pain 11/23 to RLE. Discussed labs, WBC WNL. Recommended PT while IP. <RANDY BURROWS - Last Filed: 07/23/23 08:49> Date and Time: 07/23/232 <MACK MATHEW - Last Filed: 07/23/23 22:12> - Review of Systems Constitutional: No Symptoms Eyes: No Symptoms Ears, Nose, & Throat: No Symptoms Respiratory: No Symptoms Cardiac: No Symptoms Abdominal/Gastrointestinal: No Symptoms Genitourinary Symptoms: No Symptoms Musculoskeletal: Other (RLE pain at surgical site 11/23) Skin: Cellulitis, Other (surgical incision covered with dressing) Psychological: No Symptoms Endocrine: No Symptoms Hematologic/Lymphatic: No Symptoms <RANDY BURROWS - Last Filed: 07/23/23 08:49> Objective Exam General Appearance: no apparent distress Neurologic Exam: alert, oriented x 3, cooperative Skin Exam: normal color Wound Assessment: Skin/Wound Assessment Wound/Incision Assessment Start: 07/21/23 15:28 Text: Status: Active Freq: Q6H Protocol: Document 07/23/23 03:00 MP (Rec: 07/23/23 03:04 MP [id number]) Wound/Incision Assessment Right Lower Other Wound Assessment Shift Assessment Wound Type cellulitis/ulcer Drainage Amount None Drainage Odor None/Absent Comment pt has a dressing in place to the RLE post surgery today Wound Photo Photo Taken No Eye Exam: PERRL Ears, Nose, Throat Exam: normal ENT inspection Neck Exam: normal inspection Respiratory Exam: normal breath sounds, lungs clear Cardiovascular Exam: regular rate/rhythm, normal heart sounds Gastrointestinal/Abdomen Exam: soft, normal bowel sounds Extremity Exam: other (RLE with surgical incision covered with dressing, CDI) Back Exam: normal inspection Pelvic Exam: deferred Rectal Exam: deferred <RANDY BURROWS - Last Filed: 07/23/23 08:49> Wound Assessment: Skin/Wound Assessment Wound/Incision Assessment Start: 07/21/23 15:28 Text: Status: Active Freq: Q6H Protocol: Document 07/23/23 17:03 RB (Rec: 07/23/23 17:06 RB [id number]) Wound/Incision Assessment Right Lower Other Wound Assessment Shift Assessment Wound Type I &D cellulitis Wound Stage Non Pressure Wound Dressing Status Changed Drainage Amount None Drainage Odor None/Absent General Appearance Well Approximated Length (cm) (cm) 2.4 Width (cm) (cm) 2.7 Wound Bed Greatest Portion Red (Granulation),Yellow ( [place]) Surrounding Tissue [place] Topical Solution/Irrigant Saline Irrigant Primary Dressing katiana boot Comment saline wet to dry with Santyl, katiana boot Wound Photo Photo Taken Yes <MACK MATHEW - Last Filed: 07/23/23 22:12> OBJECTIVE DATA Vital Signs: Vital Signs - 24 hr Temp Pulse Resp BP Pulse Ox 07/23/23 04:00 98.7 F 85 18 139/65 97 07/23/23 00:00 99.0 F 87 18 129/58 95 07/22/23 20:00 98.8 F 86 17 136/60 96 07/22/23 15:19 97.6 F 89 16 145/84 98 07/22/23 12:24 97.6 F 85 16 136/63 97 07/22/23 11:16 97.6 F 85 16 136/63 97 07/22/23 06:59 97.6 F 75 16 133/63 96 Pain Assessment - Last Documented Pain Intensity 4 Pain Scale Used 0-10 Pain Scale Intake and Output: Intake & Output 07/20/23 07/21/23 07/22/23 07/23/23 11:59 11:59 11:59 11:59 Intake Total 360 520 Balance 360 520 Weight 59.8 kg 59.8 kg Lab Results: Lab Results-Last 24 Hours 07/23/23 Range/Units 04:22 WBC 6.8 (4.0-10.5) x10^3/uL RBC 3.50 L (4.1-5.4) x10^6/uL Hgb 10.1 L (12.0-16.0) g/dL Hct 32.3 L (35-47) % MCV 92.3 (78-100) fL MCH 28.9 (26-32) pg MCHC 31.3 L (32-36) g/dL RDW 13.1 (11.5-14.0) % Plt Count 218 (150-450) x10^3/uL MPV 10.4 (7.5-11.0) fL Gran % 47.6 (36.0-66.0) % Immature Gran % (Auto) 0.1 (0.00-0.4) % Nucleat RBC Rel Count 0.0 (0.00-0.1) % Eos # (Auto) 0.53 H (0-0.5) x10^3/uL Immature Gran # (Auto) 0.01 (0.00-0.03) x10^3u/L Absolute Lymphs (auto) 2.35 (1.0-4.6) x10^3/uL Absolute Monos (auto) 0.67 (0.0-1.3) x10^3/uL Absolute Nucleated RBC 0.00 (0.00-0.01) x10^3u/L Lymphocytes % 34.4 (24.0-44.0) % Monocytes % 9.8 (0.0-12.0) % Eosinophils % 7.7 H (0.00-5.0) % Basophils % 0.4 (0.0-0.4) % Absolute Granulocytes 3.25 (1.4-6.9) x10^3/uL Basophils # 0.03 (0-0.4) x10^3/uL <MARKOSRANDY Jaya - Last Filed: 07/23/23 08:49> Vital Signs: Vital Signs - 24 hr Temp Pulse Resp BP Pulse Ox 07/23/23 19:58 98.4 F 82 17 119/57 97 07/23/23 15:42 73 16 131/60 96 07/23/23 11:53 98.5 F 57 L 16 124/58 99 07/23/23 08:00 96.8 F 105 H 16 142/62 96 07/23/23 04:00 98.7 F 85 18 139/65 97 07/23/23 00:00 99.0 F 87 18 129/58 95 Pain Assessment - Last Documented Pain Intensity 0 Pain Scale Used 0-10 Pain Scale Intake and Output: Intake & Output 07/21/23 07/22/23 07/23/23 07/24/23 11:59 11:59 11:59 11:59 Intake Total 360 640 480 Balance 360 640 480 Weight 59.8 kg 59.8 kg 59.8 kg Lab Results: Lab Results-Last 24 Hours 07/23/23 07/23/23 07/23/23 Range/Units 04:22 04:22 09:10 WBC 6.8 (4.0-10.5) x10^3/uL RBC 3.50 L (4.1-5.4) x10^6/uL Hgb 10.1 L (12.0-16.0) g/dL Hct 32.3 L (35-47) % MCV 92.3 (78-100) fL MCH 28.9 (26-32) pg MCHC 31.3 L (32-36) g/dL RDW 13.1 (11.5-14.0) % Plt Count 218 (150-450) x10^3/uL MPV 10.4 (7.5-11.0) fL Gran % 47.6 (36.0-66.0) % Immature Gran % (Auto) 0.1 (0.00-0.4) % Nucleat RBC Rel Count 0.0 (0.00-0.1) % Eos # (Auto) 0.53 H (0-0.5) x10^3/uL Immature Gran # (Auto) 0.01 (0.00-0.03) x10^3u/L Absolute Lymphs (auto) 2.35 (1.0-4.6) x10^3/uL Absolute Monos (auto) 0.67 (0.0-1.3) x10^3/uL Absolute Nucleated RBC 0.00 (0.00-0.01) x10^3u/L Lymphocytes % 34.4 (24.0-44.0) % Monocytes % 9.8 (0.0-12.0) % Eosinophils % 7.7 H (0.00-5.0) % Basophils % 0.4 (0.0-0.4) % Absolute Granulocytes 3.25 (1.4-6.9) x10^3/uL Basophils # 0.03 (0-0.4) x10^3/uL Sodium 130 L (137-145) mmol/L Potassium 4.0 (3.5-5.1) mmol/L Chloride 99 (98-107) mmol/L Carbon Dioxide 27 (22-30) mmol/L Anion Gap 8.5 (5-15) MEQ/L BUN 17 (7-17) mg/dL Creatinine 1.22 H (0.52-1.04) mg/dL Estimated GFR 42.4 ML/MIN Glucose 103 (74-106) mg/dL Calcium 9.9 (8.4-10.2) mg/dL Total Bilirubin 0.70 (0.2-1.3) mg/dL AST 29 (14-36) U/L ALT 15 (0-35) U/L Alkaline Phosphatase 83 (38-126) U/L Troponin I < 0.012 (0.000-0.034) ng/mL Serum Total Protein 6.6 (6.3-8.2) g/dL Albumin 3.6 (3.5-5.0) g/dL 07/23/23 07/23/23 07/23/23 Range/Units 12:30 14:38 18:08 WBC (4.0-10.5) x10^3/uL RBC (4.1-5.4) x10^6/uL Hgb (12.0-16.0) g/dL Hct (35-47) % MCV (78-100) fL MCH (26-32) pg MCHC (32-36) g/dL RDW (11.5-14.0) % Plt Count (150-450) x10^3/uL MPV (7.5-11.0) fL Gran % (36.0-66.0) % Immature Gran % (Auto) (0.00-0.4) % Nucleat RBC Rel Count (0.00-0.1) % Eos # (Auto) (0-0.5) x10^3/uL Immature Gran # (Auto) (0.00-0.03) x10^3u/L Absolute Lymphs (auto) (1.0-4.6) x10^3/uL Absolute Monos (auto) (0.0-1.3) x10^3/uL Absolute Nucleated RBC (0.00-0.01) x10^3u/L Lymphocytes % (24.0-44.0) % Monocytes % (0.0-12.0) % Eosinophils % (0.00-5.0) % Basophils % (0.0-0.4) % Absolute Granulocytes (1.4-6.9) x10^3/uL Basophils # (0-0.4) x10^3/uL Sodium (137-145) mmol/L Potassium (3.5-5.1) mmol/L Chloride (98-107) mmol/L Carbon Dioxide (22-30) mmol/L Anion Gap (5-15) MEQ/L BUN (7-17) mg/dL Creatinine (0.52-1.04) mg/dL Estimated GFR ML/MIN Glucose (74-106) mg/dL Calcium (8.4-10.2) mg/dL Total Bilirubin (0.2-1.3) mg/dL AST (14-36) U/L ALT (0-35) U/L Alkaline Phosphatase (38-126) U/L Troponin I < 0.012 < 0.012 < 0.012 (0.000-0.034) ng/mL Serum Total Protein (6.3-8.2) g/dL Albumin (3.5-5.0) g/dL 07/23/23 Range/Units 20:52 WBC (4.0-10.5) x10^3/uL RBC (4.1-5.4) x10^6/uL Hgb (12.0-16.0) g/dL Hct (35-47) % MCV (78-100) fL MCH (26-32) pg MCHC (32-36) g/dL RDW (11.5-14.0) % Plt Count (150-450) x10^3/uL MPV (7.5-11.0) fL Gran % (36.0-66.0) % Immature Gran % (Auto) (0.00-0.4) % Nucleat RBC Rel Count (0.00-0.1) % Eos # (Auto) (0-0.5) x10^3/uL Immature Gran # (Auto) (0.00-0.03) x10^3u/L Absolute Lymphs (auto) (1.0-4.6) x10^3/uL Absolute Monos (auto) (0.0-1.3) x10^3/uL Absolute Nucleated RBC (0.00-0.01) x10^3u/L Lymphocytes % (24.0-44.0) % Monocytes % (0.0-12.0) % Eosinophils % (0.00-5.0) % Basophils % (0.0-0.4) % Absolute Granulocytes (1.4-6.9) x10^3/uL Basophils # (0-0.4) x10^3/uL Sodium (137-145) mmol/L Potassium (3.5-5.1) mmol/L Chloride (98-107) mmol/L Carbon Dioxide (22-30) mmol/L Anion Gap (5-15) MEQ/L BUN (7-17) mg/dL Creatinine (0.52-1.04) mg/dL Estimated GFR ML/MIN Glucose (74-106) mg/dL Calcium (8.4-10.2) mg/dL Total Bilirubin (0.2-1.3) mg/dL AST (14-36) U/L ALT (0-35) U/L Alkaline Phosphatase (38-126) U/L Troponin I < 0.012 (0.000-0.034) ng/mL Serum Total Protein (6.3-8.2) g/dL Albumin (3.5-5.0) g/dL Multi-Disciplinary Progress Notes: Multi-Disciplinary Progress Notes 07/23/23 13:37 Case Management Note by Beckie Rowan S/W PATIENT- SHE CONTINUES TO DECLINE A REHAB STAY AT THIS TIME. SHE FEELS SHE WILL BE ABLE TO CARE FOR HERSELF AT HOME. SHE HAS FRIENDS AND FAMILY THAT CAN HELP HER. SHE WAS ENCOURAGED TO ACCEPT [facility] FOR HER DRESSING CHANGES. PATIENT ACCEPTED AND WAS GIVEN LIST OF PROVIDERS. PATIENT HAS BEEN WALKING TO THE RESTROOM WITH NURSING STAFF AND AID PLANS TO GET PATIENT UP AGAIN TO BE SURE SHE AMBULATES SAFELY. CAN ORDER A PT EVAL IF NECESSARY. PATIENT REPORTS HER FAMILY CAN GET HER BACK AND FORTH FOR FOLLOW UP APTS. Initialized on 07/23/23 13:37 - END OF NOTE 07/23/23 13:28 Case Management Note by Beckie Rowan REFERRAL FAXED TO [facility] PER PATIENT REQUEST. THEY WILL NEED NOTIFIED AT TIME OF DC AT [phone]. THEY WILL NEED FAXED THE DC INSTRUCTIONS, DC MED LIST AND DC SUMMARY TO [phone]. FULL REFERRAL WITH ORDERS FOR DRESSING CHANGES FAXED TO [facility] AT THIS TIME Initialized on 07/23/23 13:28 - END OF NOTE 07/23/23 11:17 Pharmacy Note by Krishna Ahmadi Tobramycin dosed at 120mg iv daily. Creat. a little higher today. Will check peak and trough on . Initialized on 07/23/23 11:17 - END OF NOTE <MACK MATHEW - Last Filed: 07/23/23 22:12> Assessment/Plan (1) Ulcer of right lower extremity Current Visit: Yes Status: Acute Assessment & Plan: -Podiatry consulted, plan for I&D 07/22/23 -Pain control -Imaging reviewed, venous doppler negative for DVT -Hold abx until cultures obtained 07/22/23: -Plan for I&D today with cultures, most likely abx following 07/23/23: -s/p I&D on tobramycin -Cultures pending Code(s): L97.919 - NON-PRS CHRONIC ULC UNSP PRT OF R LOW LEG W UNSP SEVERITY (2) CHF (congestive heart failure) Current Visit: Yes Status: Acute Assessment & Plan: -Does not appear to be in exacerbation -Continue entresto -No recent echo available, will obtain from Dr. 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 Current Visit: Yes Status: Acute Code(s): Z85.89 - PERSONAL HISTORY OF MALIGNANT NEOPLASM OF ORGANS AND SYSTEMS (5) CAD (coronary artery disease) Current Visit: Yes Status: Acute Code(s): I25.10 - ATHSCL HEART DISEASE OF [place] CORONARY ARTERY W/O ANG PCTRS <RANDY BURROWS - Last Filed: 07/23/23 08:49> SIERRA Encounter - SIERRA Encounter Attestation SIERRA Encounter Attestation: "IhavepersonallyseenandexamineMoose,MINNIE FLORES andhavediscussed pertinent aspects of their care with Randy Burrows and agree with the history, physical exam (any modifications based on my personal exam will be noted below), assessment, and plan as outlined in original note. Please see immediately below for my summary of findings and additional assessment and plan along with any meaningful corrections/explanations to the Subjective/Objective portions of the SIERRA note will be noted." My portion of the encounter took place via telemedicine. <MACK MATHEW - Last Filed: 07/23/23 22:12>
[2023-07-23 05:19] LABS: ALBUMIN 3.6 g/dL (3.5-5.0); ANION GAP 8.5 MEQ/L (5-15); BILIRUBIN,TOTAL 0.7 mg/dL (0.2-1.3); Calcium 9.9 mg/dL (8.4-10.2); Creatinine 1 1.22 mg/dL (0.52-1.04); EST GLOMERULAR FILTRATION RATE 42.4 ML/MIN; Total Protein 6.6 g/dL (6.3-8.2)
[2023-07-23] MEDS: Acidophilus TABLET PO SCH (08:58)
[2023-07-23] MEDS ORDERED: LASIX 20 MG PO SCH (10:00)
[2023-07-23] MEDS: PROTONIX 40 MG IV IV ONE (10:06)
--- NOTE | 2023-07-23 12:28 | OP ---
SURGERY DATE/TIME: 07/22/2023 1348 PREOPERATIVE DIAGNOSES: 1) Right leg wound with abscess. 2) Venous insufficiency. 3) Right leg pain. POSTOPERATIVE DIAGNOSES: 1) Right leg wound with abscess. 2) Venous insufficiency. 3) Right leg pain. PROCEDURE: Incision and drainage with debridement right leg. SURGEON: Karl Benz DPM. SAFETY ASSISTANT: None. ANESTHESIA: Monitored anesthesia care with intraoperative local block. HEMOSTASIS: Pressure dressing. ESTIMATED BLOOD LOSS: Approximately 5 cc. MATERIALS: None. INJECTABLES: 20 cc of 1:1 mixture of 1% lidocaine plain and 0.5% bupivacaine plain injected in a V block-type fashion to the right lower extremity. INDICATION FOR SURGERY: Diana is a very pleasant 88-year-old female known to my service for approximately the last three weeks. The patient had significant pain to the right lower extremity as well as venous insufficiency and venous insufficiency ulcer. The patient has gone through the wringer with multiple physicians not willing to treat the wound as a result of other issues that the patient is dealing with. The patient did have multiple urinary tract infections which she was placed on antibiotics for. As a result of the antibiotic she developed clostridium difficile. From that standpoint the patient also had a significant amount of cardiac issues recently which resulted in significant amount of venous insufficiency which is when the wound started. She had seen a footwear stitcher who did not think there was anything concerning from a cancer perspective and she was sent to wound care. Patient has been having a significant amount of pain associated with the wound until the patient was seen yesterday where she had a significant indication of necrotic wound to the right lower extremity. As a result increasing pain and cellulitis around the right lower extremity. The patient was directed admitted to the hospital for assessment and pain control. From that standpoint, the patient would benefit at this time with OR debridement in order to tolerate the pain that is associated with the debridement of the wound and also offload back to burden. At this time the patient understands all risks, complications and benefits of surgical intervention including but not limited to infection, hematoma, seroma, possibility of delayed wound healing, nonwound healing and possible need for surgical intervention at a later date. The patient understands all of these risks and wishes to proceed at this time. DESCRIPTION OF PROCEDURE AND FINDINGS: The patient is brought into the OR and placed on the OR table in the supine position. At this time monitored anesthesia care was administered until the patient was sedated. From that standpoint, the right lower extremity was prepped and draped in the typical sterile fashion and lowered onto the surgical field. At this time, an incision was made at the right anterior aspect of the tibia where significant amount of purulent drainage was encountered. The necrotic wound edges were cleansed utilizing curettes, rongeurs and 15 blade to freshen up the edges of the wound. Once the wound appeared to be significantly improved, we proceeded with copious amounts of irrigation utilizing 1 liter of Bactisure and 3 liters of sterile saline through the Pulsavac. From that standpoint, the wound was left open for dressing changes and to heal by secondary intention. As a result, a dressing consisting of Betadine, Adaptic, 4x4, Kerlix and Unna Boot was applied to the patient's right lower extremity to counteract her venous insufficiency. This dressing will be changed every other day. The patient was then reversed from anesthesia and returned to the postoperative anesthesia care unit with vital signs stable and vascular status intact. The patient handled the anesthesia as well as the procedure without significant complication. Postoperative orders as indicated in the patient's discharge chart.
[2023-07-24 01:22] VITALS: RESP 16
[2023-07-24 04:33] LABS: Absolute Neutrophil Ct (ANC) 3.02 x10^3/uL (1.4-6.9); BASOPHIL % 0.5 % (0.0-0.4); Basophil (Absolute #) 0.03 x10^3/uL (0-0.4); Eosinophil % 9.5 % (0.00-5.0); Eosinophil (Absolute #) 0.58 x10^3/uL (0-0.5); Hematocrit 30.8 % (35-47); Hemoglobin 10.2 g/dL (12.0-16.0); IMMATURE GRAN # 0.02 x10^3u/L (0.00-0.03); IMMATURE GRAN % 0.3 % (0.00-0.4); Lymphocyte (Absolute #) 1.95 x10^3/uL (1.0-4.6); Lymphocytes % 31.9 % (24.0-44.0); Mean Cell Volume 89.5 fL (78-100); Mean Corpuscular Hemoglobin 29.7 pg (26-32); Mean Corpuscular Hgb Concent. 33.1 g/dL (32-36); Mean Platelet Volume 10.1 fL (7.5-11.0); Monocyte (Absolute #) 0.52 x10^3/uL (0.0-1.3); Monocytes % 8.5 % (0.0-12.0); Neutrophil % 49.3 % (36.0-66.0); Platelet Count 203 x10^3/uL (150-450); Red Blood Count 3.44 x10^6/uL (4.1-5.4); Red Cell Distribution Width 12.9 % (11.5-14.0); White Blood Count 6.1 x10^3/uL (4.0-10.5)
[2023-07-24 05:00] LABS: ALBUMIN 3.5 g/dL (3.5-5.0); ANION GAP 7.8 MEQ/L (5-15); BILIRUBIN,TOTAL 0.6 mg/dL (0.2-1.3); Calcium 9.7 mg/dL (8.4-10.2); Creatinine 1 1.19 mg/dL (0.52-1.04); EST GLOMERULAR FILTRATION RATE 43.7 ML/MIN; Potassium 4.1 mmol/L (3.5-5.1); Total Protein 6.3 g/dL (6.3-8.2)
--- NOTE | 2023-07-24 05:36 | PCM.DS ---
Discharge Summary Date of Admission: 07/21/23 14:02 Date of Discharge: 07/24/23 Admitting Physician: MACK MATHEW MD Primary Care Provider: KORIN OCONNOR <RANDY BURROWS - Last Filed: 07/24/23 12:32> Date of Admission: 07/21/23 14:02 Admitting Physician: MACK MATHEW MD Primary Care Provider: KORIN OCONNOR <MACK MATHEW - Last Filed: 07/24/23 20:22> Allergies <RANDY BURROWS - Last Filed: 07/24/23 12:32> <MACK MATHEW - Last Filed: 07/24/23 20:22> Allergies amoxicillin [Amoxicillin] Allergy (Intermediate, Verified 01/09/23 14:32) facial swelling and flushed promethazine [From Phenergan] Allergy (Mild, Verified 01/09/23 14:32) metronidazole [From Flagyl] Allergy (Unknown, Verified 01/09/23 14:32) [facility] Penicillins Allergy (Unknown, Verified 01/09/23 14:32) [facility] Sulfa (Sulfonamide Antibiotics) Allergy (Unknown, Verified 01/09/23 14:32) [facility] Summary - Hospital Course Hospital Course: is a 88 year old female with a pmhx of CHF,CAD, CABG (x1 in 2005), CKD, HTN, HLD, raynauds disease, skin cancer to the E with chemotherapy/radiation, and venous insufficiency who is a direct admission for evaluation of wound to the right lower extremity, concerning for superimposed cellulitis with podiatry consulted for wound debridement to be performed 07/22/23. Patient reports that in March of 2022 she had a lesion on her right lower extremity evaluated by Dr. Lexy Kennedy (dermatology) where later biopsy confirmed it to be skin cancer ( unknown type). She underwent chemotherapy and radiation for this. Patient states she has CHF (on Entrestro) and was experiencing BLE edema which caused her wound to open back up. The wound has been very red and painful making it difficult for her to bear weight causing unsteadiness in her gait. She also mentions a recent infection with cdiff secondary to antibiotic she was on for a UTI. Podiatry p erformed I&D 07/22/23, patient placed on Tobramycin. Per podiatry, will obtain MRI of affected extremity as OP. Patient to follow up with Dr. Wallace for further evaluation. Antibiotics changed to Cipro orally/vanc oral. Culture results pending Discharge Note New Diagnosis: LLE ulcer New Medications: cipro/vancomycin Follow Up: PCP/Podiatry/ID Results pending: cultures Outpatient testing to order: Latest Assessment & Plan 1) Ulcer of right lower extremity Current Visit: Yes Status: Acute Assessment & Plan: -Podiatry consulted, plan for I&D 07/22/23 -Pain control -Imaging reviewed, venous doppler negative for DVT -Hold abx until cultures obtained 07/22/23: -Plan for I&D today with cultures, most likely abx following 07/23/23: -s/p I&D on tobramycin -Cultures pending Code(s): L97.919 - NON-PRS CHRONIC ULC UNSP PRT OF R LOW LEG W UNSP SEVERITY (2) CHF (congestive heart failure) Current Visit: Yes Status: Acute Assessment & Plan: -Does not appear to be in exacerbation -Continue entresto -No recent echo available, will obtain from Dr. 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 Mitchell Code(s): I25.10 - ATHSCL HEART DISEASE OF [place] CORONARY ARTERY W/O ANG PCTRS Code(s): L97.919 - NON-PRS CHRONIC ULC UNSP PRT OF R LOW LEG W UNSP SEVERITY I spent 35 minutes [id number] with the patient on the day of discharge performing discharge exam, discussing hospital stay and discharge instructions with patient and caregivers, preparation of discharge records, prescriptions & referral forms and addressing any questions/concerns the patient had as documented above. - Vitals & Intake/Output Vital Signs: Vital Signs Temperature 98.0 F 07/24/23 03:58 Pulse Rate 80 07/24/23 03:58 Respiratory Rate 16 07/24/23 03:58 Blood Pressure 109/55 07/24/23 03:58 O2 Sat by Pulse Oximetry 93 L 07/24/23 03:58 Intake & Output: Intake & Output 07/21/23 07/22/23 07/23/23 07/24/23 11:59 11:59 11:59 11:59 Intake Total 360 640 480 Balance 360 640 480 Weight 59.8 kg 59.8 kg 59.8 kg - Lab Result Diagrams: 07/24/23 04:11 07/24/23 04:11 Lab Results-Last 24 Hrs: Lab Results-Last 24 Hours 07/23/23 07/23/23 07/23/23 Range/Units 09:10 12:30 14:38 WBC (4.0-10.5) x10^3/uL RBC (4.1-5.4) x10^6/uL Hgb (12.0-16.0) g/dL Hct (35-47) % MCV (78-100) fL MCH (26-32) pg MCHC (32-36) g/dL RDW (11.5-14.0) % Plt Count (150-450) x10^3/uL MPV (7.5-11.0) fL Gran % (36.0-66.0) % Immature Gran % (Auto) (0.00-0.4) % Nucleat RBC Rel Count (0.00-0.1) % Eos # (Auto) (0-0.5) x10^3/uL Immature Gran # (Auto) (0.00-0.03) x10^3u/L Absolute Lymphs (auto) (1.0-4.6) x10^3/uL Absolute Monos (auto) (0.0-1.3) x10^3/uL Absolute Nucleated RBC (0.00-0.01) x10^3u/L Lymphocytes % (24.0-44.0) % Monocytes % (0.0-12.0) % Eosinophils % (0.00-5.0) % Basophils % (0.0-0.4) % Absolute Granulocytes (1.4-6.9) x10^3/uL Basophils # (0-0.4) x10^3/uL Sodium (137-145) mmol/L Potassium (3.5-5.1) mmol/L Chloride (98-107) mmol/L Carbon Dioxide (22-30) mmol/L Anion Gap (5-15) MEQ/L BUN (7-17) mg/dL Creatinine (0.52-1.04) mg/dL Estimated GFR ML/MIN Glucose (74-106) mg/dL Calcium (8.4-10.2) mg/dL Total Bilirubin (0.2-1.3) mg/dL AST (14-36) U/L ALT (0-35) U/L Alkaline Phosphatase (38-126) U/L Troponin I < 0.012 < 0.012 < 0.012 (0.000-0.034) ng/mL Serum Total Protein (6.3-8.2) g/dL Albumin (3.5-5.0) g/dL 07/23/23 07/23/23 07/24/23 Range/Units 18:08 20:52 04:11 WBC 6.1 (4.0-10.5) x10^3/uL RBC 3.44 L (4.1-5.4) x10^6/uL Hgb 10.2 L (12.0-16.0) g/dL Hct 30.8 L (35-47) % MCV 89.5 (78-100) fL MCH 29.7 (26-32) pg MCHC 33.1 (32-36) g/dL RDW 12.9 (11.5-14.0) % Plt Count 203 (150-450) x10^3/uL MPV 10.1 (7.5-11.0) fL Gran % 49.3 (36.0-66.0) % Immature Gran % (Auto) 0.3 (0.00-0.4) % Nucleat RBC Rel Count 0.0 (0.00-0.1) % Eos # (Auto) 0.58 H (0-0.5) x10^3/uL Immature Gran # (Auto) 0.02 (0.00-0.03) x10^3u/L Absolute Lymphs (auto) 1.95 (1.0-4.6) x10^3/uL Absolute Monos (auto) 0.52 (0.0-1.3) x10^3/uL Absolute Nucleated RBC 0.00 (0.00-0.01) x10^3u/L Lymphocytes % 31.9 (24.0-44.0) % Monocytes % 8.5 (0.0-12.0) % Eosinophils % 9.5 H (0.00-5.0) % Basophils % 0.5 (0.0-0.4) % Absolute Granulocytes 3.02 (1.4-6.9) x10^3/uL Basophils # 0.03 (0-0.4) x10^3/uL Sodium (137-145) mmol/L Potassium (3.5-5.1) mmol/L Chloride (98-107) mmol/L Carbon Dioxide (22-30) mmol/L Anion Gap (5-15) MEQ/L BUN (7-17) mg/dL Creatinine (0.52-1.04) mg/dL Estimated GFR ML/MIN Glucose (74-106) mg/dL Calcium (8.4-10.2) mg/dL Total Bilirubin (0.2-1.3) mg/dL AST (14-36) U/L ALT (0-35) U/L Alkaline Phosphatase (38-126) U/L Troponin I < 0.012 < 0.012 (0.000-0.034) ng/mL Serum Total Protein (6.3-8.2) g/dL Albumin (3.5-5.0) g/dL 07/24/23 07/24/23 Range/Units 04:11 04:39 WBC (4.0-10.5) x10^3/uL RBC (4.1-5.4) x10^6/uL Hgb (12.0-16.0) g/dL Hct (35-47) % MCV (78-100) fL MCH (26-32) pg MCHC (32-36) g/dL RDW (11.5-14.0) % Plt Count (150-450) x10^3/uL MPV (7.5-11.0) fL Gran % (36.0-66.0) % Immature Gran % (Auto) (0.00-0.4) % Nucleat RBC Rel Count (0.00-0.1) % Eos # (Auto) (0-0.5) x10^3/uL Immature Gran # (Auto) (0.00-0.03) x10^3u/L Absolute Lymphs (auto) (1.0-4.6) x10^3/uL Absolute Monos (auto) (0.0-1.3) x10^3/uL Absolute Nucleated RBC (0.00-0.01) x10^3u/L Lymphocytes % (24.0-44.0) % Monocytes % (0.0-12.0) % Eosinophils % (0.00-5.0) % Basophils % (0.0-0.4) % Absolute Granulocytes (1.4-6.9) x10^3/uL Basophils # (0-0.4) x10^3/uL Sodium 127 L (137-145) mmol/L Potassium 4.1 (3.5-5.1) mmol/L Chloride 97 L (98-107) mmol/L Carbon Dioxide 27 (22-30) mmol/L Anion Gap 7.8 (5-15) MEQ/L BUN 16 (7-17) mg/dL Creatinine 1.19 H (0.52-1.04) mg/dL Estimated GFR 43.7 ML/MIN Glucose 117 H (74-106) mg/dL Calcium 9.7 (8.4-10.2) mg/dL Total Bilirubin 0.60 (0.2-1.3) mg/dL AST 26 (14-36) U/L ALT 14 (0-35) U/L Alkaline Phosphatase 80 (38-126) U/L Troponin I < 0.012 (0.000-0.034) ng/mL Serum Total Protein 6.3 (6.3-8.2) g/dL Albumin 3.5 (3.5-5.0) g/dL Micro Results-Entire Visit: Microbiology 07/22/23 14:11 Organism Identification - Final Leg - Right Not Reportable Nocardia ID - Final Not Reportable Organism ID (Sequencing) - Final Not Reportable Nocardia, ID by Sequencing - Final Not Reportable Organism Identification 1 - Final Not Reportable Mycobacterium Identification - Final Not Reportable Mycobacteria, ID by Sequencing - Final Not Reportable Organism Identification 2 - Final Not Reportable - Procedures and Test Procedures and Tests throughout Hospitalization: Therapy Orders & Screens 07/21/23 15:28 OT Screen per Nursing Assess ONCE Comment: Protocol Order Physician Instructions: Greater than 3 points order OT Admission Screening Reason For Exam: Triggered on Admission Diagnosis: Ulcer of right lower limb Open Wound/Cellutlitis/Pressure Ulcers: Yes Acute Fx/ORIF/Change in wt bearing status: No Severe MUSCULOSKELETAL pain: No ADL Dysfunction: Yes Acute CVA w/Hemiparesis/Hemiplegia: No Decreased Functional Mobility/Strength: Yes Sprain/Strain: No Acute Post-op Mobility Dysfunction: No Total Points: 9 PT Screen per Nursing Assess ONCE Comment: Protocol Order Physician Instructions: Greater than 3 points order PT Admission Screenin Reason For Exam: Triggered on Admission Diagnosis: Ulcer of right lower limb Open Wound/Cellutlitis/Pressure Ulcers: Yes Acute Fx/ORIF/Change in wt bearing status: No Severe MUSCULOSKELETAL pain: No ADL Dysfunction: Yes Acute CVA w/Hemiparesis/Hemiplegia: No Decreased Functional Mobility/Strength: Yes Sprain/Strain: No Acute Post-op Mobility Dysfunction: No Total Points: 9 07/23/23 08:45 EKG ROUTINE Comment: Diagnosis: Ulcer of right lower limb <RANDY BURROWS - Last Filed: 07/24/23 12:32> - Vitals & Intake/Output Vital Signs: Vital Signs Temperature 96.9 F 07/24/23 11:12 Pulse Rate 87 07/24/23 11:12 Respiratory Rate 16 07/24/23 11:12 Blood Pressure 132/62 07/24/23 11:12 O2 Sat by Pulse Oximetry 98 07/24/23 11:12 Intake & Output: Intake & Output 07/22/23 07/23/23 07/24/23 07/25/23 11:59 11:59 11:59 11:59 Intake Total 360 640 720 120 Balance 360 640 720 120 Weight 59.8 kg 59.8 kg 59.8 kg - Lab Result Diagrams: 07/24/23 04:11 07/24/23 15:05 Lab Results-Last 24 Hrs: Lab Results-Last 24 Hours 07/23/23 07/24/23 07/24/23 Range/Units 20:52 04:11 04:11 WBC 6.1 (4.0-10.5) x10^3/uL RBC 3.44 L (4.1-5.4) x10^6/uL Hgb 10.2 L (12.0-16.0) g/dL Hct 30.8 L (35-47) % MCV 89.5 (78-100) fL MCH 29.7 (26-32) pg MCHC 33.1 (32-36) g/dL RDW 12.9 (11.5-14.0) % Plt Count 203 (150-450) x10^3/uL MPV 10.1 (7.5-11.0) fL Gran % 49.3 (36.0-66.0) % Immature Gran % (Auto) 0.3 (0.00-0.4) % Nucleat RBC Rel Count 0.0 (0.00-0.1) % Eos # (Auto) 0.58 H (0-0.5) x10^3/uL Immature Gran # (Auto) 0.02 (0.00-0.03) x10^3u/L Absolute Lymphs (auto) 1.95 (1.0-4.6) x10^3/uL Absolute Monos (auto) 0.52 (0.0-1.3) x10^3/uL Absolute Nucleated RBC 0.00 (0.00-0.01) x10^3u/L Lymphocytes % 31.9 (24.0-44.0) % Monocytes % 8.5 (0.0-12.0) % Eosinophils % 9.5 H (0.00-5.0) % Basophils % 0.5 (0.0-0.4) % Absolute Granulocytes 3.02 (1.4-6.9) x10^3/uL Basophils # 0.03 (0-0.4) x10^3/uL Sodium 127 L (137-145) mmol/L Potassium 4.1 (3.5-5.1) mmol/L Chloride 97 L (98-107) mmol/L Carbon Dioxide 27 (22-30) mmol/L Anion Gap 7.8 (5-15) MEQ/L BUN 16 (7-17) mg/dL Creatinine 1.19 H (0.52-1.04) mg/dL Estimated GFR 43.7 ML/MIN Glucose 117 H (74-106) mg/dL Calcium 9.7 (8.4-10.2) mg/dL Total Bilirubin 0.60 (0.2-1.3) mg/dL AST 26 (14-36) U/L ALT 14 (0-35) U/L Alkaline Phosphatase 80 (38-126) U/L Troponin I < 0.012 (0.000-0.034) ng/mL Serum Total Protein 6.3 (6.3-8.2) g/dL Albumin 3.5 (3.5-5.0) g/dL 07/24/23 07/24/23 Range/Units 04:39 15:05 WBC (4.0-10.5) x10^3/uL RBC (4.1-5.4) x10^6/uL Hgb (12.0-16.0) g/dL Hct (35-47) % MCV (78-100) fL MCH (26-32) pg MCHC (32-36) g/dL RDW (11.5-14.0) % Plt Count (150-450) x10^3/uL MPV (7.5-11.0) fL Gran % (36.0-66.0) % Immature Gran % (Auto) (0.00-0.4) % Nucleat RBC Rel Count (0.00-0.1) % Eos # (Auto) (0-0.5) x10^3/uL Immature Gran # (Auto) (0.00-0.03) x10^3u/L Absolute Lymphs (auto) (1.0-4.6) x10^3/uL Absolute Monos (auto) (0.0-1.3) x10^3/uL Absolute Nucleated RBC (0.00-0.01) x10^3u/L Lymphocytes % (24.0-44.0) % Monocytes % (0.0-12.0) % Eosinophils % (0.00-5.0) % Basophils % (0.0-0.4) % Absolute Granulocytes (1.4-6.9) x10^3/uL Basophils # (0-0.4) x10^3/uL Sodium 129 L (137-145) mmol/L Potassium (3.5-5.1) mmol/L Chloride (98-107) mmol/L Carbon Dioxide (22-30) mmol/L Anion Gap (5-15) MEQ/L BUN (7-17) mg/dL Creatinine (0.52-1.04) mg/dL Estimated GFR ML/MIN Glucose (74-106) mg/dL Calcium (8.4-10.2) mg/dL Total Bilirubin (0.2-1.3) mg/dL AST (14-36) U/L ALT (0-35) U/L Alkaline Phosphatase (38-126) U/L Troponin I < 0.012 (0.000-0.034) ng/mL Serum Total Protein (6.3-8.2) g/dL Albumin (3.5-5.0) g/dL - Procedures and Test Procedures and Tests throughout Hospitalization: Therapy Orders & Screens 07/21/23 15:28 OT Screen per Nursing Assess ONCE Comment: Protocol Order Physician Instructions: Greater than 3 points order OT Admission Screening Reason For Exam: Triggered on Admission Diagnosis: Ulcer of right lower limb Open Wound/Cellutlitis/Pressure Ulcers: Yes Acute Fx/ORIF/Change in wt bearing status: No Severe MUSCULOSKELETAL pain: No ADL Dysfunction: Yes Acute CVA w/Hemiparesis/Hemiplegia: No Decreased Functional Mobility/Strength: Yes Sprain/Strain: No Acute Post-op Mobility Dysfunction: No Total Points: 9 PT Screen per Nursing Assess ONCE Comment: Protocol Order Physician Instructions: Greater than 3 points order PT Admission Screenin Reason For Exam: Triggered on Admission Diagnosis: Ulcer of right lower limb Open Wound/Cellutlitis/Pressure Ulcers: Yes Acute Fx/ORIF/Change in wt bearing status: No Severe MUSCULOSKELETAL pain: No ADL Dysfunction: Yes Acute CVA w/Hemiparesis/Hemiplegia: No Decreased Functional Mobility/Strength: Yes Sprain/Strain: No Acute Post-op Mobility Dysfunction: No Total Points: 9 07/23/23 08:45 EKG ROUTINE Comment: Diagnosis: Ulcer of right lower limb <MACK MATHEW - Last Filed: 07/24/23 20:22> Discharge Exam General Appearance: no apparent distress Neurologic Exam: alert, oriented x 3, cooperative Eye Exam: PERRL Ears, Nose, Throat Exam: normal ENT inspection Neck Exam: normal inspection Respiratory Exam: normal breath sounds, lungs clear Cardiovascular Exam: regular rate/rhythm, normal heart sounds Gastrointestinal/Abdomen Exam: soft, normal bowel sounds Rectal Exam: deferred Back Exam: normal inspection Extremity Exam: other (RLE ulceration with surgical dressing covering) Skin Exam: other (see ext/wound assessment) Wound Assessment: Skin/Wound Assessment Wound/Incision Assessment Start: 07/21/23 15:28 Text: Status: Active Freq: Q6H Protocol: Document 07/24/23 05:00 LB (Rec: 07/24/23 05:33 LB [id number]) Wound/Incision Assessment Right Lower Other Wound Assessment Shift Assessment Wound Type I &D cellulitis Wound Stage Non Pressure Wound Dressing Status Dry & Intact Drainage Amount None Drainage Odor None/Absent Comment dressing in place CDI Wound Photo Photo Taken Yes Comment: in chart <RANDY BURROWS - Last Filed: 07/24/23 12:32> Final Diagnosis/Problem List - Final Discharge Diagnosis/Problem (1) Ulcer of right lower extremity Status: Acute Code(s): L97.919 - NON-PRS CHRONIC ULC UNSP PRT OF R LOW LEG W UNSP SEVERITY (2) CHF (congestive heart failure) Status: Acute Code(s): I50.9 - HEART FAILURE, UNSPECIFIED (3) HTN (hypertension) Status: Acute Code(s): I10 - ESSENTIAL (PRIMARY) HYPERTENSION (4) 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 Status: Acute Code(s): Z85.89 - PERSONAL HISTORY OF MALIGNANT NEOPLASM OF ORGANS AND SYSTEMS (5) CAD (coronary artery disease) Status: Acute Code(s): I25.10 - ATHSCL HEART DISEASE OF [place] CORONARY ARTERY W/O ANG PCTRS <RANDY BURROWS - Last Filed: 07/24/23 12:32> <RANDY BURROWS - Last Filed: 07/24/23 12:32> <MACK MATHEW - Last Filed: 07/24/23 20:22> - Discharge Disposition: HOME HEALTH SERVICE Condition: Stable Prescriptions: New Ciprofloxacin HCl [Cipro] 500 mg PO BID 7 Days #14 tablet Hydrocodone/Acetaminophen [Hydrocodone-Acetamin 5-325 mg] 1 tab PO Q4HPRN PRN 3 Days #18 tablet MDD 6 PRN Reason: Pain Vancomycin HCl [Vancocin HCl] 250 mg PO BID 7 Days #14 cap Continue Simvastatin 20Mg [Zocor 20Mg] 20 mg PO DAILY Aspirin [Aspirin EC] 81 mg PO DAILY Sacubitril/Valsartan [Entresto 49 mg-51 mg Tablet] 49 - 51 mg PO BID Tramadol HCl 50 mg [Ultram 50 mg] 50 mg PO Q6H PRN PRN PRN Reason: Pain Discontinued Furosemide 20 mg [Lasix 20 mg] 20 mg PO DAILY Instructions: Ciprofloxacin (Systemic), Vancomycin, Wound Incision and Drainage (DC) Additional Instructions: Please hold lasix until follow up with PCP, will need labs Friday [facility] WILL CALL YOU TO SCHEDULE YOUR FIRST VISIT. DRESSING CHANGE ORDERS FOR HOME HEALTHCARE: (PER DR VU) ~~DRESSING CHANGE 3 TIMES PER WEEK ~~APPLY SANTYL LONG THICK TO WOUND ON R ANTERIOR LEG, APPLY STERILE WET TO DRY DRESSING ~~APPLY UNNA BOOT, FAN FOLDED, KERLIX, AND COBAN ~~DRESSING WILL BE CHANGED ONE ADDITIONAL TIME IN DR VU OFFICE ON MONDAYS Follow up with: MIRELLA FERRER DPM [ACTIVE STAFF] - 07/28/23 9:00 am KORIN OCONNOR MD [Primary Care Provider] - 07/28/23 2:45 pm MADELIN WALLACE [NON-STAFF PHY W/O PRIVILEGES] - 08/04/23 2:00 pm SIERRA Encounter - SIERRA Encounter Attestation SIERRA Encounter Attestation: "IhavepersonallyseenandexMINNIE Melissa andhavediscussed pertinent aspects of their care with Randy Stevenson agree with the history, physical exam (any modifications based on my personal exam will be noted below), assessment, and plan as outlined in original note. Please see immediately below for my summary of findings and additional assessment and plan along with any meaningful corrections/explanations to the Subjective/Objective portions of the [facility]ERRA note will be noted." My portion of the encounter took place via telemedicine. <MACK MATHEW - Last Filed: 07/24/23 20:22>
--- NOTE | 2023-07-24 07:49 | PCM.CONS ---
Podiatry HPI - Consult Reason for Consult: right leg ulcer cellulitis Consulting Provider: MIRELLA FERRER DPM - HPI History of Present Illness: is a 88 year old female with a pmhx of CHF,CAD, CABG (x1 in 2005), CKD, HTN, HLD, raynauds disease, skin cancer to the RLE with chemotherapy/radiation, and venous insufficiency who is a direct admission for evaluation of wound to the right lower extremity, concerning for superimposed cellulitis with podiatry consulted for wound debridement to be performed 07/22/23. Patient reports that in March of 2022 she had a lesion on her right lower extremity evaluated by Dr. Lexy Kennedy (dermatology) where later biopsy confirmed it to be skin cancer (unknown type). She underwent chemotherapy and radiation for this. Patient states she has CHF (on Entrestro) and was experiencing BLE edema which caused her wound to open back up. The wound has been very red and painful making it difficult for her to bear weight causing unsteadiness in her gait. She also mentions a recent infection with cdiff secondary to antibiotic she was on for a UTI. Denies fever,cough, sob, cp, abdominal pain, URIARTE, dizziness, N/V/D. Seen POD #1 improved pain. Wound assessed with resolving cellulitis. Started on tobramycin yesterday tolerating well. Very lethargic this AM with complaints of headache. Medications & Allergies Home Medications: Home Medication List Aspirin [Aspirin EC] 81 mg PO DAILY 07/06/21 [History Confirmed 07/23/23] Simvastatin 20Mg [Zocor 20Mg] 20 mg PO DAILY 07/06/21 [History Confirmed 07/23/23] Furosemide 20 mg [Lasix 20 mg] 20 mg PO DAILY 07/21/23 [History Confirmed 07/21/23] Sacubitril/Valsartan [Entresto 49 mg-51 mg Tablet] 49 - 51 mg PO BID 07/21/23 [History Confirmed 07/21/23] Tramadol HCl 50 mg [Ultram 50 mg] 50 mg PO Q6H PRN PRN 07/21/23 [History Confirmed 07/21/23] Allergies/Adverse Reactions: Allergies Allergy/AdvReac Type Severity Reaction Status Date / Time amoxicillin [Amoxicillin] Allergy Intermediate facial Verified 01/09/23 14:32 swelling and flushed promethazine [From Phenergan] Allergy Mild Verified 01/09/23 14:32 metronidazole [From Flagyl] Allergy Unknown Verified 01/09/23 14:32 Penicillins Allergy Unknown Verified 01/09/23 14:32 Sulfa (Sulfonamide Allergy Unknown Verified 01/09/23 14:32 Antibiotics) - Past Medical History Past Medical History: Yes Neurological History: No Pertinent History ENT History: Cataracts Cardiac History: Coronary Artery Disease, High Cholesterol, Other Respiratory History: Asthma Endocrine Medical History: No Pertinent History Musculoskelatal History: No Pertinent History GI Medical History: No Pertinent History, Other History: Other Pyscho-Social History: No Pertinent History Reproductive Disorders: Fibroids Comment: PERICARDICECTOMY 2005; cdiff 09/2015, SKIN CA TO RLE (RADIATION) - Female History Are you now?: No - Past Surgical History Past Surgical History: Yes Neuro Surgical History: No Pertinent History Cardiac History: Cardiac Catheterization, Cardiac Stent, Other GI Surgical History: Appendectomy Genitourinary Surgical Hx: No Pertinent History Musculskeletal Surgical Hx: No Pertinent History Female Surgical History: Hysterectomy Other Surgical History: surg on heart - Social History Smoking Status: Never smoker Exposure to second hand smoke: No Alcohol: None Drug Use: none Physical Exam - Neuro Neurologic: Epicritic and protopathic - Vascular Peripheral Pulses: Posterior tibialis: 2+, Dorsalis-Pedis: 2+ Capillary Refill Time: < 3 seconds Hair Growth: Symmetrical and Bilateral Varicosities: Positive Edema: Pitting Edema Degree: 2+ (RightLE) - Narrative Narrative Physical Exam: Podiatry Physical Exam Results - Labs Lab/Micro Results: Lab Results-Last 24 Hours 07/23/23 07/23/23 07/23/23 Range/Units 09:10 12:30 14:38 WBC (4.0-10.5) x10^3/uL RBC (4.1-5.4) x10^6/uL Hgb (12.0-16.0) g/dL Hct (35-47) % MCV (78-100) fL MCH (26-32) pg MCHC (32-36) g/dL RDW (11.5-14.0) % Plt Count (150-450) x10^3/uL MPV (7.5-11.0) fL Gran % (36.0-66.0) % Immature Gran % (Auto) (0.00-0.4) % Nucleat RBC Rel Count (0.00-0.1) % Eos # (Auto) (0-0.5) x10^3/uL Immature Gran # (Auto) (0.00-0.03) x10^3u/L Absolute Lymphs (auto) (1.0-4.6) x10^3/uL Absolute Monos (auto) (0.0-1.3) x10^3/uL Absolute Nucleated RBC (0.00-0.01) x10^3u/L Lymphocytes % (24.0-44.0) % Monocytes % (0.0-12.0) % Eosinophils % (0.00-5.0) % Basophils % (0.0-0.4) % Absolute Granulocytes (1.4-6.9) x10^3/uL Basophils # (0-0.4) x10^3/uL Sodium (137-145) mmol/L Potassium (3.5-5.1) mmol/L Chloride (98-107) mmol/L Carbon Dioxide (22-30) mmol/L Anion Gap (5-15) MEQ/L BUN (7-17) mg/dL Creatinine (0.52-1.04) mg/dL Estimated GFR ML/MIN Glucose (74-106) mg/dL Calcium (8.4-10.2) mg/dL Total Bilirubin (0.2-1.3) mg/dL AST (14-36) U/L ALT (0-35) U/L Alkaline Phosphatase (38-126) U/L Troponin I < 0.012 < 0.012 < 0.012 (0.000-0.034) ng/mL Serum Total Protein (6.3-8.2) g/dL Albumin (3.5-5.0) g/dL 07/23/23 07/23/23 07/24/23 Range/Units 18:08 20:52 04:11 WBC 6.1 (4.0-10.5) x10^3/uL RBC 3.44 L (4.1-5.4) x10^6/uL Hgb 10.2 L (12.0-16.0) g/dL Hct 30.8 L (35-47) % MCV 89.5 (78-100) fL MCH 29.7 (26-32) pg MCHC 33.1 (32-36) g/dL RDW 12.9 (11.5-14.0) % Plt Count 203 (150-450) x10^3/uL MPV 10.1 (7.5-11.0) fL Gran % 49.3 (36.0-66.0) % Immature Gran % (Auto) 0.3 (0.00-0.4) % Nucleat RBC Rel Count 0.0 (0.00-0.1) % Eos # (Auto) 0.58 H (0-0.5) x10^3/uL Immature Gran # (Auto) 0.02 (0.00-0.03) x10^3u/L Absolute Lymphs (auto) 1.95 (1.0-4.6) x10^3/uL Absolute Monos (auto) 0.52 (0.0-1.3) x10^3/uL Absolute Nucleated RBC 0.00 (0.00-0.01) x10^3u/L Lymphocytes % 31.9 (24.0-44.0) % Monocytes % 8.5 (0.0-12.0) % Eosinophils % 9.5 H (0.00-5.0) % Basophils % 0.5 (0.0-0.4) % Absolute Granulocytes 3.02 (1.4-6.9) x10^3/uL Basophils # 0.03 (0-0.4) x10^3/uL Sodium (137-145) mmol/L Potassium (3.5-5.1) mmol/L Chloride (98-107) mmol/L Carbon Dioxide (22-30) mmol/L Anion Gap (5-15) MEQ/L BUN (7-17) mg/dL Creatinine (0.52-1.04) mg/dL Estimated GFR ML/MIN Glucose (74-106) mg/dL Calcium (8.4-10.2) mg/dL Total Bilirubin (0.2-1.3) mg/dL AST (14-36) U/L ALT (0-35) U/L Alkaline Phosphatase (38-126) U/L Troponin I < 0.012 < 0.012 (0.000-0.034) ng/mL Serum Total Protein (6.3-8.2) g/dL Albumin (3.5-5.0) g/dL 07/24/23 07/24/23 Range/Units 04:11 04:39 WBC (4.0-10.5) x10^3/uL RBC (4.1-5.4) x10^6/uL Hgb (12.0-16.0) g/dL Hct (35-47) % MCV (78-100) fL MCH (26-32) pg MCHC (32-36) g/dL RDW (11.5-14.0) % Plt Count (150-450) x10^3/uL MPV (7.5-11.0) fL Gran % (36.0-66.0) % Immature Gran % (Auto) (0.00-0.4) % Nucleat RBC Rel Count (0.00-0.1) % Eos # (Auto) (0-0.5) x10^3/uL Immature Gran # (Auto) (0.00-0.03) x10^3u/L Absolute Lymphs (auto) (1.0-4.6) x10^3/uL Absolute Monos (auto) (0.0-1.3) x10^3/uL Absolute Nucleated RBC (0.00-0.01) x10^3u/L Lymphocytes % (24.0-44.0) % Monocytes % (0.0-12.0) % Eosinophils % (0.00-5.0) % Basophils % (0.0-0.4) % Absolute Granulocytes (1.4-6.9) x10^3/uL Basophils # (0-0.4) x10^3/uL Sodium 127 L (137-145) mmol/L Potassium 4.1 (3.5-5.1) mmol/L Chloride 97 L (98-107) mmol/L Carbon Dioxide 27 (22-30) mmol/L Anion Gap 7.8 (5-15) MEQ/L BUN 16 (7-17) mg/dL Creatinine 1.19 H (0.52-1.04) mg/dL Estimated GFR 43.7 ML/MIN Glucose 117 H (74-106) mg/dL Calcium 9.7 (8.4-10.2) mg/dL Total Bilirubin 0.60 (0.2-1.3) mg/dL AST 26 (14-36) U/L ALT 14 (0-35) U/L Alkaline Phosphatase 80 (38-126) U/L Troponin I < 0.012 (0.000-0.034) ng/mL Serum Total Protein 6.3 (6.3-8.2) g/dL Albumin 3.5 (3.5-5.0) g/dL Microbiology 07/22/23 14:11 Organism Identification - Final Leg - Right Not Reportable Nocardia ID - Final Not Reportable Organism ID (Sequencing) - Final Not Reportable Nocardia, ID by Sequencing - Final Not Reportable Organism Identification 1 - Final Not Reportable Mycobacterium Identification - Final Not Reportable Mycobacteria, ID by Sequencing - Final Not Reportable Organism Identification 2 - Final Not Reportable Assessment/Plan (1) CHF (congestive heart failure) Current Visit: Yes Status: Acute Code(s): I50.9 - HEART FAILURE, UNSPECIFIED (2) Cellulitis of right lower extremity Current Visit: Yes Status: Acute Assessment & Plan: Patient examination and evaluation Wound reassessed this morning with resolving cellulites and improved clinical appearance with no residual signs of infection of wound necrosis Pain control improving Patient very lethargic with headaches tolerating IV tobramycin. Per nursing staff refusing PO abx on d/c Unna boot applied to RLE for venous insufficiency and localized edema. HHC for dressing changes MWF Ok for d/c from my standpoint if all d/c criteria met Will continue to follow OP Code(s): L03.115 - CELLULITIS OF RIGHT LOWER LIMB (3) HTN (hypertension) Current Visit: Yes Status: Acute Code(s): I10 - ESSENTIAL (PRIMARY) HYPERTENSION (4) 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 Current Visit: Yes Status: Acute Code(s): Z85.89 - PERSONAL HISTORY OF MALIGNANT NEOPLASM OF ORGANS AND SYSTEMS (5) Ulcer of right lower extremity Current Visit: Yes Status: Acute Code(s): L97.919 - NON-PRS CHRONIC ULC UNSP PRT OF R LOW LEG W UNSP SEVERITY (6) Cellulitis Current Visit: No Status: Acute Code(s): L03.90 - CELLULITIS, UNSPECIFIED (7) Diarrhea Current Visit: No Status: Acute Code(s): R19.7 - DIARRHEA, UNSPECIFIED (8) UTI (urinary tract infection) Current Visit: No Status: Acute Code(s): N39.0 - URINARY TRACT INFECTION, SITE NOT SPECIFIED
[2023-07-24] MEDS: Sodium Chloride 0.9% 1000 ML 1,000 ML IV SCH (10:51)
[2023-07-24] MEDS: ZYVOX PO SCH (10:53)
[2023-07-24] MEDS: NON-FORMULARY ITEM PO SCH (10:54)
[2023-07-24 11:13] VITALS: BP 132/62; PULSE 87; TEMP 96.9; O2SAT 98
--- NOTE | 2023-07-24 11:14 | PCM.DS ---
Discharge Summary Date of Admission: 07/21/23 14:02 Admitting Physician: MACK MATHEW MD Primary Care Provider: KORIN OCONNOR Allergies Allergies amoxicillin [Amoxicillin] Allergy (Intermediate, Verified 01/09/23 14:32) facial swelling and flushed promethazine [From Phenergan] Allergy (Mild, Verified 01/09/23 14:32) metronidazole [From Flagyl] Allergy (Unknown, Verified 01/09/23 14:32) cant rememer Penicillins Allergy (Unknown, Verified 01/09/23 14:32) cant remember Sulfa (Sulfonamide Antibiotics) Allergy (Unknown, Verified 01/09/23 14:32) [facility] Summary - Vitals & Intake/Output Vital Signs: Vital Signs Temperature 97.9 F 07/24/23 07:06 Pulse Rate 73 07/24/23 07:06 Respiratory Rate 16 07/24/23 07:06 Blood Pressure 117/56 07/24/23 07:06 O2 Sat by Pulse Oximetry 93 L 07/24/23 07:06 Intake & Output: Intake & Output 07/22/23 07/23/23 07/24/23 07/25/23 06:59 06:59 06:59 06:59 Intake Total 360 520 600 240 Balance 360 520 600 240 Weight 59.8 kg 59.8 kg 59.8 kg - Lab Result Diagrams: 07/24/23 04:11 07/24/23 04:11 Lab Results-Last 24 Hrs: Lab Results-Last 24 Hours 07/23/23 07/23/23 07/23/23 Range/Units 12:30 14:38 18:08 WBC (4.0-10.5) x10^3/uL RBC (4.1-5.4) x10^6/uL Hgb (12.0-16.0) g/dL Hct (35-47) % MCV (78-100) fL MCH (26-32) pg MCHC (32-36) g/dL RDW (11.5-14.0) % Plt Count (150-450) x10^3/uL MPV (7.5-11.0) fL Gran % (36.0-66.0) % Immature Gran % (Auto) (0.00-0.4) % Nucleat RBC Rel Count (0.00-0.1) % Eos # (Auto) (0-0.5) x10^3/uL Immature Gran # (Auto) (0.00-0.03) x10^3u/L Absolute Lymphs (auto) (1.0-4.6) x10^3/uL Absolute Monos (auto) (0.0-1.3) x10^3/uL Absolute Nucleated RBC (0.00-0.01) x10^3u/L Lymphocytes % (24.0-44.0) % Monocytes % (0.0-12.0) % Eosinophils % (0.00-5.0) % Basophils % (0.0-0.4) % Absolute Granulocytes (1.4-6.9) x10^3/uL Basophils # (0-0.4) x10^3/uL Sodium (137-145) mmol/L Potassium (3.5-5.1) mmol/L Chloride (98-107) mmol/L Carbon Dioxide (22-30) mmol/L Anion Gap (5-15) MEQ/L BUN (7-17) mg/dL Creatinine (0.52-1.04) mg/dL Estimated GFR ML/MIN Glucose (74-106) mg/dL Calcium (8.4-10.2) mg/dL Total Bilirubin (0.2-1.3) mg/dL AST (14-36) U/L ALT (0-35) U/L Alkaline Phosphatase (38-126) U/L Troponin I < 0.012 < 0.012 < 0.012 (0.000-0.034) ng/mL Serum Total Protein (6.3-8.2) g/dL Albumin (3.5-5.0) g/dL 07/23/23 07/24/23 07/24/23 Range/Units 20:52 04:11 04:11 WBC 6.1 (4.0-10.5) x10^3/uL RBC 3.44 L (4.1-5.4) x10^6/uL Hgb 10.2 L (12.0-16.0) g/dL Hct 30.8 L (35-47) % MCV 89.5 (78-100) fL MCH 29.7 (26-32) pg MCHC 33.1 (32-36) g/dL RDW 12.9 (11.5-14.0) % Plt Count 203 (150-450) x10^3/uL MPV 10.1 (7.5-11.0) fL Gran % 49.3 (36.0-66.0) % Immature Gran % (Auto) 0.3 (0.00-0.4) % Nucleat RBC Rel Count 0.0 (0.00-0.1) % Eos # (Auto) 0.58 H (0-0.5) x10^3/uL Immature Gran # (Auto) 0.02 (0.00-0.03) x10^3u/L Absolute Lymphs (auto) 1.95 (1.0-4.6) x10^3/uL Absolute Monos (auto) 0.52 (0.0-1.3) x10^3/uL Absolute Nucleated RBC 0.00 (0.00-0.01) x10^3u/L Lymphocytes % 31.9 (24.0-44.0) % Monocytes % 8.5 (0.0-12.0) % Eosinophils % 9.5 H (0.00-5.0) % Basophils % 0.5 (0.0-0.4) % Absolute Granulocytes 3.02 (1.4-6.9) x10^3/uL Basophils # 0.03 (0-0.4) x10^3/uL Sodium 127 L (137-145) mmol/L Potassium 4.1 (3.5-5.1) mmol/L Chloride 97 L (98-107) mmol/L Carbon Dioxide 27 (22-30) mmol/L Anion Gap 7.8 (5-15) MEQ/L BUN 16 (7-17) mg/dL Creatinine 1.19 H (0.52-1.04) mg/dL Estimated GFR 43.7 ML/MIN Glucose 117 H (74-106) mg/dL Calcium 9.7 (8.4-10.2) mg/dL Total Bilirubin 0.60 (0.2-1.3) mg/dL AST 26 (14-36) U/L ALT 14 (0-35) U/L Alkaline Phosphatase 80 (38-126) U/L Troponin I < 0.012 (0.000-0.034) ng/mL Serum Total Protein 6.3 (6.3-8.2) g/dL Albumin 3.5 (3.5-5.0) g/dL 07/24/23 Range/Units 04:39 WBC (4.0-10.5) x10^3/uL RBC (4.1-5.4) x10^6/uL Hgb (12.0-16.0) g/dL Hct (35-47) % MCV (78-100) fL MCH (26-32) pg MCHC (32-36) g/dL RDW (11.5-14.0) % Plt Count (150-450) x10^3/uL MPV (7.5-11.0) fL Gran % (36.0-66.0) % Immature Gran % (Auto) (0.00-0.4) % Nucleat RBC Rel Count (0.00-0.1) % Eos # (Auto) (0-0.5) x10^3/uL Immature Gran # (Auto) (0.00-0.03) x10^3u/L Absolute Lymphs (auto) (1.0-4.6) x10^3/uL Absolute Monos (auto) (0.0-1.3) x10^3/uL Absolute Nucleated RBC (0.00-0.01) x10^3u/L Lymphocytes % (24.0-44.0) % Monocytes % (0.0-12.0) % Eosinophils % (0.00-5.0) % Basophils % (0.0-0.4) % Absolute Granulocytes (1.4-6.9) x10^3/uL Basophils # (0-0.4) x10^3/uL Sodium (137-145) mmol/L Potassium (3.5-5.1) mmol/L Chloride (98-107) mmol/L Carbon Dioxide (22-30) mmol/L Anion Gap (5-15) MEQ/L BUN (7-17) mg/dL Creatinine (0.52-1.04) mg/dL Estimated GFR ML/MIN Glucose (74-106) mg/dL Calcium (8.4-10.2) mg/dL Total Bilirubin (0.2-1.3) mg/dL AST (14-36) U/L ALT (0-35) U/L Alkaline Phosphatase (38-126) U/L Troponin I < 0.012 (0.000-0.034) ng/mL Serum Total Protein (6.3-8.2) g/dL Albumin (3.5-5.0) g/dL Micro Results-Entire Visit: Microbiology 07/22/23 14:11 Organism Identification - Final Leg - Right Not Reportable Nocardia ID - Final Not Reportable Organism ID (Sequencing) - Final Not Reportable Nocardia, ID by Sequencing - Final Not Reportable Organism Identification 1 - Final Not Reportable Mycobacterium Identification - Final Not Reportable Mycobacteria, ID by Sequencing - Final Not Reportable Organism Identification 2 - Final Not Reportable - Procedures and Test Procedures and Tests throughout Hospitalization: Therapy Orders & Screens 07/21/23 15:28 OT Screen per Nursing Assess ONCE Comment: Protocol Order Physician Instructions: Greater than 3 points order OT Admission Screening Reason For Exam: Triggered on Admission Diagnosis: Ulcer of right lower limb Open Wound/Cellutlitis/Pressure Ulcers: Yes Acute Fx/ORIF/Change in wt bearing status: No Severe MUSCULOSKELETAL pain: No ADL Dysfunction: Yes Acute CVA w/Hemiparesis/Hemiplegia: No Decreased Functional Mobility/Strength: Yes Sprain/Strain: No Acute Post-op Mobility Dysfunction: No Total Points: 9 PT Screen per Nursing Assess ONCE Comment: Protocol Order Physician Instructions: Greater than 3 points order PT Admission Screenin Reason For Exam: Triggered on Admission Diagnosis: Ulcer of right lower limb Open Wound/Cellutlitis/Pressure Ulcers: Yes Acute Fx/ORIF/Change in wt bearing status: No Severe MUSCULOSKELETAL pain: No ADL Dysfunction: Yes Acute CVA w/Hemiparesis/Hemiplegia: No Decreased Functional Mobility/Strength: Yes Sprain/Strain: No Acute Post-op Mobility Dysfunction: No Total Points: 9 07/23/23 08:45 EKG ROUTINE Comment: Diagnosis: Ulcer of right lower limb Discharge Exam Wound Assessment: Skin/Wound Assessment Wound/Incision Assessment Start: 07/21/23 15:28 Text: Status: Active Freq: Q6H Protocol: Document 07/24/23 05:00 LB (Rec: 07/24/23 05:33 LB [id number]) Wound/Incision Assessment Right Lower Other Wound Assessment Shift Assessment Wound Type I &D cellulitis Wound Stage Non Pressure Wound Dressing Status Dry & Intact Drainage Amount None Drainage Odor None/Absent Comment dressing in place CDI Wound Photo Photo Taken Yes Comment: in chart - Discharge Disposition: HOME HEALTH SERVICE Condition: Stable Prescriptions: No Action Simvastatin 20Mg [Zocor 20Mg] 20 mg PO DAILY Aspirin [Aspirin EC] 81 mg PO DAILY Furosemide 20 mg [Lasix 20 mg] 20 mg PO DAILY Sacubitril/Valsartan [Entresto 49 mg-51 mg Tablet] 49 - 51 mg PO BID Tramadol HCl 50 mg [Ultram 50 mg] 50 mg PO Q6H PRN PRN PRN Reason: Pain Follow up with: MIRELLA FERRER DPM [ACTIVE STAFF] - 07/28/23 9:00 am KORIN OCONNOR MD [Primary Care Provider] - 08/07/23 10:45 am
[2023-07-24] MEDS ORDERED: TROUGH DRUG LEVELS IJ ONE (17:30)
[2023-07-24] MEDS ORDERED: PEAK DRUG LEVELS IJ ONE (19:00)
== END 2023-07-24 16:25 | disposition home health service (06) ==
LOC: MED SURG 14:02
PROVIDERS: ADMIT Internal Medicine; ATTEND Internal Medicine
DX: L97.919 Non-pressure chronic ulcer of unspecified part of right lower leg with unspecified severity (principal); I13.0 Hypertensive heart and chronic kidney disease with heart failure and stage 1 through stage 4 chronic kidney disease, or unspecified chronic kidney disease; N18.9 Chronic kidney disease, unspecified; I50.9 Heart failure, unspecified; Z85.89 Personal history of malignant neoplasm of other organs and systems; I25.10 Atherosclerotic heart disease of native coronary artery without angina pectoris; L03.115 Cellulitis of right lower limb; R19.7 Diarrhea, unspecified; N39.0 Urinary tract infection, site not specified; E78.5 Hyperlipidemia, unspecified; I73.00 Raynaud's syndrome without gangrene; R60.0 Localized edema; M79.604 Pain in right leg; I87.2 Venous insufficiency (chronic) (peripheral); Z95.0 Presence of cardiac pacemaker; Z79.899 Other long term (current) drug therapy; Z20.828 Contact with and (suspected) exposure to other viral communicable diseases
CPT/HCPCS: 00400; 0241U; 27603; 29580; 36415; 80053; 83880; 84295; 84484; 85025; 87070; 87075; 87116; 87205; 87206; 93005; 93268; 99100; 99221; G0378; G0379; Q3014; A6260; J2001; J2405; J2704; J3010; J3260; A9270-GY

== ENCOUNTER 2023-08-26 09:07 | Day surgery (SDC) | payer MEDICARE, OTHER ==
--- NOTE | 2023-08-26 09:39 | XRAY ---
Indication: Preop exam. Comparison: January 09, 2023 Portable chest again hyperinflated. No focal infiltrate, consolidation, or large effusion. Heart borderline enlarged with CT proven pericardial calcifications. Bony thorax intact with osteopenia and sternotomy wires. Impression: Nonacute hyperinflated chest with chronic features.
[2023-08-26] MEDS: Lactated Ringers 1,000 ML IV SCH (09:49)
[2023-08-26 09:50] VITALS: RESP 16
[2023-08-26 09:51] LABS: Absolute Neutrophil Ct (ANC) 3.99 x10^3/uL (1.4-6.9); BASOPHIL % 0.4 % (0.0-0.4); Basophil (Absolute #) 0.03 x10^3/uL (0-0.4); Eosinophil % 5.4 % (0.00-5.0); Eosinophil (Absolute #) 0.37 x10^3/uL (0-0.5); Hematocrit 36.8 % (35-47); Hemoglobin 11.9 g/dL (12.0-16.0); IMMATURE GRAN # 0.02 x10^3u/L (0.00-0.03); IMMATURE GRAN % 0.3 % (0.00-0.4); Lymphocyte (Absolute #) 1.88 x10^3/uL (1.0-4.6); Lymphocytes % 27.4 % (24.0-44.0); Mean Corpuscular Hemoglobin 29.8 pg (26-32); Mean Corpuscular Hgb Concent. 32.3 g/dL (32-36); Mean Platelet Volume 10.1 fL (7.5-11.0); Monocyte (Absolute #) 0.56 x10^3/uL (0.0-1.3); Monocytes % 8.2 % (0.0-12.0); Neutrophil % 58.3 % (36.0-66.0); Platelet Count 217 x10^3/uL (150-450); Red Cell Distribution Width 13.5 % (11.5-14.0); White Blood Count 6.9 x10^3/uL (4.0-10.5)
[2023-08-26 10:32] LABS: ALBUMIN 4.5 g/dL (3.5-5.0); ANION GAP 13.9 MEQ/L (5-15); BILIRUBIN,TOTAL 0.6 mg/dL (0.2-1.3); Calcium 10.3 mg/dL (8.4-10.2); Creatinine 1 1.3 mg/dL (0.52-1.04); EST GLOMERULAR FILTRATION RATE 39.3 ML/MIN; Potassium 4.5 mmol/L (3.5-5.1); Total Protein 7.7 g/dL (6.3-8.2)
[2023-08-26] MEDS ORDERED: DIPRIVAN 200 MG/20 ML IV ONE ×2 (12:00→12:48)
[2023-08-26] MEDS ORDERED: Xylocaine-Mpf 2% 5 Ml Vial ONE (12:00)
[2023-08-26] MEDS ORDERED: SUBLIMAZE 100 MCG/2 ML ONE (12:00)
[2023-08-26] MEDS ORDERED: Amidate 20 MG/10 ML IV ONE (12:00)
[2023-08-26] MEDS ORDERED: Marcaine Mpf 0.5% Vial 30 Ml ONE (12:14)
[2023-08-26] MEDS ORDERED: Xylocaine 1% Vial 30 ML PF IJ ONE (12:14)
[2023-08-26 13:34] VITALS: TEMP 98.1
[2023-08-26 13:50] VITALS: BP 152/86; PULSE 98; O2SAT 98
--- NOTE | 2023-08-27 08:11 | OP ---
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 2) Right leg pain. 3) Venous insufficiency. 4) Right leg wound chronic. 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 2) Right leg pain. 3) Venous insufficiency. 4) Right leg wound chronic. PROCEDURE: Punch biopsy x3 right leg. SURGEON: Karl Benz DPM. OPTOMETRY DOCTOR: None. ANESTHESIA: Monitored anesthesia care with intraoperative local block consisting of 20 cc of a 1:1 mixture of 1% lidocaine plain and 0.5% bupivacaine plain. HEMOSTASIS: Pressure dressing. ESTIMATED BLOOD LOSS: Minimal. INJECTABLES: 20 cc of 1% lidocaine plain and 0.5% bupivacaine plain injected for a V block-type fashion proximal to the wound. INDICATION FOR SURGERY: Diana is a very pleasant 88-year-old female very well known to our service for a wound that occurred after excision of a squamous cell carcinoma from her right leg. With radiation and chemotherapy this did heal and was uncomplicated the greater portion of a year. The patient did have congestive heart failure that resulted in significant leg swelling which seemingly led to the formation of a venous insufficiency ulcer. Typical wound care has been carried out with this in mind. However, at this time, the patient has been seeing us for approximately eight weeks with worsening of the wound suspected of resultant trauma and possible worsening of a suspected squamous cell. A discussion was held with the patient in regards to options and she is amenable to proceeding with surgical intervention at this time. We are going to find out if this is truly a recurrence of the squamous cell and give us more objective evidence in going forward in treating this. The patient understands all risks, complications and benefits of surgical intervention at this time including but not limited to infection, hematoma, seroma, possibility of delayed wound healing, nonwound healing and possible failure of surgical intervention. No guarantees were provided as to the surgical outcome. Plenty of time was allowed for the patient to ask questions which were answered to her apparent satisfaction. It is at this time we decided to proceed. DESCRIPTION OF PROCEDURE AND FINDINGS: The patient is brought into the OR and placed on the OR table in the supine position. At this time, monitored anesthesia care was administered until the patient was sedated. The right lower extremity was prepped and draped in the typical sterile fashion and lowered onto the surgical field. At this time, a 20 cc block consisting of a 1:1 mixture 1% lidocaine plain and 0.5% bupivacaine plain was injected in a V block-type fashion proximal to the wound. Following this, adequate time was allowed for the block to take place and the punch biopsies were obtained two from the central aspect and one from the peripheral margin of the wound which were sent together with diagnosis of suspected squamous cell carcinoma recurrence. At that time, a dressing consisting of Betadine, Adaptic, 4x4, Sachi, Kerlix and Coban were applied to the right lower extremity with moderate compression to prevent exacerbation of her venous insufficiency. The patient was then reversed from anesthesia and returned to the postoperative anesthesia care unit with vital signs stable and vascular status intact. The patient handled the anesthesia as well as the procedure without significant complication. Postoperative orders as indicated in the patient's discharge chart.
== END 2023-08-26 14:15 | disposition home or self-care (01) ==
LOC: SDC 09:07
PROVIDERS: ATTEND Podiatrist Foot & Ankle Surgery
DX: L90.5 Scar conditions and fibrosis of skin (principal); M79.604 Pain in right leg; I87.2 Venous insufficiency (chronic) (peripheral); L97.919 Non-pressure chronic ulcer of unspecified part of right lower leg with unspecified severity; I10 Essential (primary) hypertension
CPT/HCPCS: 11104; 11105; 36415; 71045; 80053; 83880; 85025; 88305; 93005; 99100; J2001; J2704; J3010

== ENCOUNTER 2023-09-09 10:34 | Day surgery (SDC) | payer MEDICARE, OTHER ==
[2023-09-09 10:53] VITALS: RESP 18
[2023-09-09] MEDS ORDERED: Lactated Ringers 1,000 ML IV ONE (11:06)
[2023-09-09] MEDS ORDERED: Marcaine Mpf 0.5% Vial 30 Ml ONE (11:13)
[2023-09-09] MEDS ORDERED: Xylocaine 1% Vial 30 ML PF IJ ONE (11:13)
[2023-09-09] MEDS: Lactated Ringers 1,000 ML IV SCH (11:30)
[2023-09-09] MEDS ORDERED: NORCO 10-325 MG PO ONE (11:50)
[2023-09-09] MEDS ORDERED: Decadron 4 MG INJ ONE (14:39)
[2023-09-09] MEDS ORDERED: DIPRIVAN 200 MG/20 ML IV ONE (14:39)
[2023-09-09] MEDS ORDERED: Zofran 4 MG/2 ML VIAL ONE (14:39)
[2023-09-09] MEDS ORDERED: Xylocaine-Mpf 2% 5 Ml Vial ONE (14:39)
[2023-09-09] MEDS ORDERED: SUBLIMAZE 100 MCG/2 ML ONE ×2 (14:39→15:31)
[2023-09-09] MEDS ORDERED: Ephedrine Sulfate 50 MG/ML ONE (14:56)
[2023-09-09 16:07] VITALS: TEMP 97.2; O2SAT 99
[2023-09-09 16:20] VITALS: BP 162/78; PULSE 82
--- NOTE | 2023-09-10 07:57 | OP ---
SURGERY DATE/TIME: 09/09/2023 1439 PREOPERATIVE DIAGNOSES: 1) Chronic nonhealing wound. 2) Chronic venous insufficiency ulceration. 3) Right leg pain. POSTOPERATIVE DIAGNOSES: 1) Chronic nonhealing wound. 2) Chronic venous insufficiency ulceration. 3) Right leg pain. PROCEDURES: 1) Incision and drainage to the level of the right tibialis anterior tendon sheath with aggressive wound debridement. 2) Application of synthetic skin substitute Integra 2 x 2. SURGEON: Karl Benz DPM. HELMET BINDER: None. ANESTHESIA: General. HEMOSTASIS: Pressure dressing. ESTIMATED BLOOD LOSS: Minimal. INJECTABLES: 10 cc of 1:1 mixture of 1% lidocaine plain and 0.5% bupivacaine plain injected in a V block-type fashion proximal to the wound. INDICATION FOR SURGERY: Diana is a pleasant 88-year-old female very well known to my service for a chronic nonhealing wound to the right lower extremity. The patient recently had biopsies taken due to the nature that this is chronic and nonhealing and with a previous history of squamous cell carcinoma. This cleared her for margins for the squamous cell carcinoma and at this time we are willing to be aggressive in order to proceed with surgical intervention. The patient understands all risks, complications and benefits of surgical intervention at this time including but not limited to infection, hematoma, seroma, possibility of delayed wound healing or nonwound healing and possible failure of surgical intervention at this time but no guarantees were provided as to the outcome of surgical intervention. It is at this time we decided to proceed. DESCRIPTION OF PROCEDURE AND FINDINGS: The patient is brought into the OR and placed on the OR table in the supine position. At this time general anesthesia was administered until the patient was adequately sedated. The right lower extremity was prepped and draped in the typical sterile fashion and lowered on to the surgical field. At this time, attention was directed to the right lower extremity where the wound was inspected. Wound margins were debrided utilizing a 15 blade, curette and rongeur down to the level of the tibialis anterior tendon. Tendon sheath was disrupted which was cleansed with copious amounts of sterile saline. The lateral aspect of the tibia was inspected however, the periosteum was closed and decided not to bother the periosteal envelope. From this standpoint, copious amounts of sterile saline were utilized to flush the surgical site. A 2 x 2 Integra was affixed to the surgical site. A dressing consisting of Adaptic, 4x4, Kerlix, ABD and ALEXIA was applied to the patient's right lower extremity with the foot orthogonal relative to longitudinal axis of the leg. The patient was then reversed from anesthesia and brought back to the postoperative anesthesia care unit with vital signs stable and vascular status intact. The patient handled the anesthesia as well as the procedure without significant complication. Postoperative orders as indicated in the patient's discharge chart.
== END 2023-09-09 16:31 | disposition home or self-care (01) ==
LOC: SDC 10:34
PROVIDERS: ATTEND Podiatrist Foot & Ankle Surgery
DX: I87.311 Chronic venous hypertension (idiopathic) with ulcer of right lower extremity (principal); M79.604 Pain in right leg; S91.301A Unspecified open wound, right foot, initial encounter; L97.818 Non-pressure chronic ulcer of other part of right lower leg with other specified severity
CPT/HCPCS: 00400; 11043; 15275; 99100; Q4158; J1100; J2001; J2405; J2704; J3010; Q4104

== ENCOUNTER 2023-11-17 10:36 | Observation (INO) | payer MEDICARE ==
[2023-11-17 11:25] LABS: Appearance Clear (Clear); Bacteria None Seen /HPF (None Seen); Bilirubin Negative (Negative); Blood Negative (Negative); Epithelial Cells None Seen /HPF (None Seen); Glucose, Urine Negative (Negative); Hyaline Casts NONE SEEN /LPF (0-2); Ketones Negative (Negative); Leukocyte Esterase Negative (Negative); Nitrite Negative (Negative); Protein,Urine Dip Negative (Negative); RBC 0-2 /HPF (0-5); Specific Gravity <=1.005 (1.005-1.030); Urobilinogen 0.2 mg/dL (0.2); WBC 0-2 /HPF (0-5)
[2023-11-17] MEDS: Sodium Chloride 0.9% 1000 ML 1,000 ML IV SCH (11:28)
[2023-11-17 11:30] LABS: ADD URINE CULTURE? NO (NO)
--- NOTE | 2023-11-17 11:36 | ERPHSYRPT ---
- History of Present Illness Time Seen by Provider: 11/17/23 10:55 Source: patient Exam Limitations: clinical condition Patient Subjective Stated Complaint: "weak and getting worse" Triage Nursing Assessment: 88 yr old female pt arrives to ED via POV with her son. Staff called to parking lot to assist pt out of car and into a wheelchair. Pt brought back by security in a wheelchair to room 9. Pt able to get out of wheelchair and into bed with assist of 1. Pt is alert and oriented, able to provide date but not day of the week. Pt states that she is here for complications from low sodium. Pt reports that she has gotten progressively weaker over the weekend and was suppose to come in to have her sodium checked but decided she was to weak and needed to be seen. Pt reports that her cardiac medication is what has been causing her sodium to drop. Pt is also reporting a URIARTE and nausea from time to time but denies both at this time. Pt was suppose to have surgery on her right lower leg on with Dr. Barajas but Dr. Mitchell states she is not to have to surgery. Physician History: Patient is an 88-year-old white female who presents with a primary complaint of generalized weakness. She says that her problems arise because of low sodium which is a complication of being treated for an extended period of time by [facility]. She also complains of some nausea and headache. She was scheduled for an appointment with Dr. Sapp But she canceled that appointment because she felt too weak to go so she came to the ER. She was scheduled for a right leg surgery from Dr. Barajas however because of her sodium apparently being extremely low it was canceled by Dr. Sapp Allergies/Adverse Reactions: amoxicillin [Amoxicillin] Allergy (Intermediate, Verified 11/11/23 07:47) facial swelling and flushed promethazine [From Phenergan] Allergy (Mild, Verified 11/11/23 07:47) metronidazole [From Flagyl] Allergy (Unknown, Verified 11/11/23 07:47) cant rememer Penicillins Allergy (Unknown, Verified 11/11/23 07:47) cant remember Sulfa (Sulfonamide Antibiotics) Allergy (Unknown, Verified 11/11/23 07:47) cant rememeber clindamycin Adverse Reaction (Verified 11/11/23 07:47) Diarrhea pt says it gave her cdiff levofloxacin [From [facility]] Adverse Reaction (Verified 11/11/23 07:47) elevated blood pressure and agitation Home Medications: Aspirin [Aspirin EC] 81 mg PO UD 07/06/21 [History] Simvastatin 20Mg [Zocor 20Mg] 20 mg PO DAILY 07/06/21 [History] Sacubitril/Valsartan [Entresto 49 mg-51 mg Tablet] 49 - 51 mg PO BID 07/21/23 [H istory] Famotidine 20 mg [Pepcid 20 MG] 1 tab PO BID 11/17/23 [History] Hx Tetanus, Diphtheria Vaccination/Date Given: Yes Hx Influenza Vaccination/Date Given: Yes Hx Pneumococcal Vaccination/Date Given: Yes Immunizations Up to Date: Yes Travel Risk - International Travel Have you traveled outside of the country in past 3 weeks: No - Emerging Infectious Disease Are you exhibiting symptoms associated with any current EIDs: Yes Symptoms: Headaches/Body Aches/ - Review of Systems Constitutional: Weakness Eyes: No Symptoms Ears, Nose, & Throat: No Symptoms Respiratory: No Cough, No Dyspnea Cardiac: No Chest Pain, No Edema, No Syncope Abdominal/Gastrointestinal: Nausea, No Abdominal Pain, No Vomiting, No Diarrhea Genitourinary Symptoms: No Dysuria Musculoskeletal: No Back Pain, No Neck Pain Skin: No Rash Neurological: Headache, No Dizziness, No Focal Weakness, No Sensory Changes Psychological: No Symptoms Endocrine: No Symptoms All Other Systems: Reviewed and Negative - Past Medical History Pertinent Past Medical History: Yes Neurological History: No Pertinent History ENT History: Cataracts Cardiac History: Congestive Heart Failure, Coronary Artery Disease, High Cholesterol, Other Respiratory History: No Pertinent History Endocrine Medical History: No Pertinent History Musculoskeletal History: No Pertinent History GI Medical History: No Pertinent History, Other History: Other Psycho-Social History: No Pertinent History Female Reproductive Disorders: Fibroids Other Medical History: Skin cancer on RLE; began radiation in 2021, hx cdiff, pericardicectomy, stent placed 2005 - Past Surgical History Past Surgical History: Yes Neuro Surgical History: No Pertinent History Cardiac: Cardiac Catheterization, Cardiac Stent, Other Respiratory: No Pertinent History Gastrointestinal: Appendectomy Genitourinary: No Pertinent History Musculoskeletal: No Pertinent History Female Surgical History: Hysterectomy Other Surgical History: skin cancer removal on right leg, pericardicectomy, stent placed 2005 - Social History Smoking Status: Never smoker Exposure to second hand smoke: No Drug Use: none Patient Lives Alone: Yes - Social Determinants of Health Will the patient participate in the screening: Yes Do you worry about a steady place to live?: No Do you have any problems with any of the following?: No known problems In the past 12 months,have you had to go without utilities?: No Transportation Issues: No Has anyone in your support network made you feel unsafe?: No Have you or anyone in your house had to go without enough: No - Nursing Vital Signs Nursing Vital Signs: Initial Vital Signs Pulse Rate 87 11/17/23 10:37 Respiratory Rate 20 11/17/23 10:37 Blood Pressure 183/84 11/17/23 10:37 O2 Sat by Pulse Oximetry 99 11/17/23 10:37 Pain Scale Pain Intensity 2 - Physical Exam General Appearance: moderate distress, alert, cachetic, thin Eye Exam: PERRL/EOMI, eyes nml inspection Ears, Nose, Throat Exam: normal ENT inspection, TMs normal, pharynx normal, moist mucous membranes Neck Exam: normal inspection, non-tender, supple, full range of motion Respiratory Exam: normal breath sounds, lungs clear, No respiratory distress Cardiovascular Exam: regular rate/rhythm, normal heart sounds, normal peripheral pulses Gastrointestinal/Abdomen Exam: soft, normal bowel sounds, No tenderness, No mass Back Exam: normal inspection, normal range of motion, No CVA tenderness, No vertebral tenderness Extremity Exam: normal inspection, normal range of motion, pelvis stable Neurologic Exam: alert, oriented x 3, cooperative, normal mood/affect, nml cereb ellar function, nml station & gait, sensation nml, No motor deficits Skin Exam: normal color, warm, dry, No rash Lymphatic Exam: No adenopathy SpO2 Interpretation: normal SpO2: 99 O2 Delivery: Room Air - Course Nursing assessment & vital signs reviewed: Yes EKG Interpreted by Me: RATE (83), Sinus Rhythm, NORMAL AXIS, 1st degree AV Block, Left Bundle Branch Block, Non-specific ST Changes - Radiology Exams Chest X-ray Interpretation: Reviewed by me Ordered Tests: Active Orders 24 hr Category Date Time Status EKG-ER Only STAT Care 11/17/23 10:59 Active IV Insertion STAT Care 11/17/23 10:59 Active CHEST 1 VIEW (PORTABLE) Stat Exams 11/17/23 10:59 Completed BLOOD CULTURE Stat Lab 11/17/23 12:00 Received CBC W DIFF Stat Lab 11/17/23 12:05 Completed CMP Stat Lab 11/17/23 12:05 Completed LIPASE Stat Lab 11/17/23 12:05 Completed Lactic Acid Stat Lab 11/17/23 11:54 Completed PROTIME WITH INR Stat Lab 11/17/23 11:48 Completed TROPONIN Q4H Lab 11/17/23 11:48 Completed TROPONIN Q4H Lab 11/17/23 15:00 Ordered TROPONIN Q4H Lab 11/17/23 19:00 Ordered UA W/RFX UR CULTURE Stat Lab 11/17/23 11:15 Completed Medication Summary Generic Name Dose Route Start Last Admin Trade Name Freq PRN Reason Stop Dose Admin Sodium Chloride 1,000 mls @ 100 mls/hr 11/17/23 11:00 11/17/23 11:28 Sodium Chloride 0.9% 1000 Ml IV 12/17/23 10:59 100 mls/hr .Q10H ZION Administration Discontinued Medications Generic Name Dose Route Start Last Admin Trade Name Freq PRN Reason Stop Dose Admin Ketorolac Tromethamine 30 mg 11/17/23 12:17 11/17/23 12:20 Ketorolac Tromethamine 30 Mg/Ml Inj IV 11/17/23 12:18 30 mg STAT ONE Administration Ketorolac Tromethamine Confirm 11/17/23 12:18 Ketorolac Tromethamine 30 Mg/Ml Inj Administered 11/17/23 12:19 Dose 30 mg .ROUTE .STK-MED ONE Lab/Rad Data: Laboratory Result Diagrams 11/17/23 12:05 11/17/23 12:05 Laboratory Results 11/17/23 11/17/23 11/17/23 Range/Units 12:05 12:05 11:54 WBC 8.3 (4.0-10.5) x10^3/uL RBC 3.20 L (4.1-5.4) x10^6/uL Hgb 9.8 L (12.0-16.0) g/dL Hct 28.3 L (35-47) % MCV 88.4 (78-100) fL MCH 30.6 (26-32) pg MCHC 34.6 (32-36) g/dL RDW 11.7 (11.5-14.0) % Plt Count 262 (150-450) x10^3/uL MPV 9.9 (7.5-11.0) fL Gran % 76.1 H (36.0-66.0) % Immature Gran % (Auto) 0.4 (0.00-0.4) % Nucleat RBC Rel Count 0.0 (0.00-0.1) % Eos # (Auto) 0.11 (0-0.5) x10^3/uL Immature Gran # (Auto) 0.03 (0.00-0.03) x10^3u/L Absolute Lymphs (auto) 1.18 (1.0-4.6) x10^3/uL Absolute Monos (auto) 0.65 (0.0-1.3) x10^3/uL Absolute Nucleated RBC 0.00 (0.00-0.01) x10^3u/L Lymphocytes % 14.2 L (24.0-44.0) % Monocytes % 7.8 (0.0-12.0) % Eosinophils % 1.3 (0.00-5.0) % Basophils % 0.2 (0.0-0.4) % Absolute Granulocytes 6.31 (1.4-6.9) x10^3/uL Basophils # 0.02 (0-0.4) x10^3/uL PT (9.4-12.5) SECONDS INR (0.8-3.0) Sodium 124 L (135-145) mmol/L Potassium 4.6 (3.5-5.1) mmol/L Chloride 98 (98-107) mmol/L Carbon Dioxide 15 L* (22-30) mmol/L Anion Gap 14.6 (5-15) MEQ/L BUN 21 H (7-17) mg/dL Creatinine 1.21 H (0.52-1.04) mg/dL Estimated GFR 42.8 ML/MIN Glucose 106 (74-106) mg/dL Lactic Acid 0.6 (0.4-2.0) Calcium 10.2 (8.4-10.2) mg/dL Total Bilirubin 0.60 (0.2-1.3) mg/dL AST 29 (14-36) U/L ALT 17 (0-35) U/L Alkaline Phosphatase 103 (38-126) U/L Troponin I (0.000-0.033) ng/mL Serum Total Protein 7.0 (6.3-8.2) g/dL Albumin 4.1 (3.5-5.0) g/dL Lipase 47 (23-300) U/L Urine Color (Yellow) Urine Appearance (Clear) Urine pH (4.6-8.0) Ur Specific [place] (1.005-1.030) Urine Protein (Negative) Urine Glucose (UA) (Negative) mg/dL Urine Ketones (Negative) Urine Blood (Negative) Urine Nitrite (Negative) Urine Bilirubin (Negative) Urine Urobilinogen (0.2) mg/dL Ur Leukocyte Esterase (Negative) U Hyaline Cast (Auto) (0-2) /LPF Urine Microscopic RBC (0-5) /HPF Urine Microscopic WBC (0-5) /HPF Ur Epithelial Cells (None Seen) /HPF Urine Bacteria (None Seen) /HPF Urine Culture Reflexed (NO) 11/17/23 11/17/23 11/17/23 Range/Units 11:48 11:48 11:15 WBC (4.0-10.5) x10^3/uL RBC (4.1-5.4) x10^6/uL Hgb (12.0-16.0) g/dL Hct (35-47) % MCV (78-100) fL MCH (26-32) pg MCHC (32-36) g/dL RDW (11.5-14.0) % Plt Count (150-450) x10^3/uL MPV (7.5-11.0) fL Gran % (36.0-66.0) % Immature Gran % (Auto) (0.00-0.4) % Nucleat RBC Rel Count (0.00-0.1) % Eos # (Auto) (0-0.5) x10^3/uL Immature Gran # (Auto) (0.00-0.03) x10^3u/L Absolute Lymphs (auto) (1.0-4.6) x10^3/uL Absolute Monos (auto) (0.0-1.3) x10^3/uL Absolute Nucleated RBC (0.00-0.01) x10^3u/L Lymphocytes % (24.0-44.0) % Monocytes % (0.0-12.0) % Eosinophils % (0.00-5.0) % Basophils % (0.0-0.4) % Absolute Granulocytes (1.4-6.9) x10^3/uL Basophils # (0-0.4) x10^3/uL PT 10.3 (9.4-12.5) SECONDS INR 0.94 (0.8-3.0) Sodium (135-145) mmol/L Potassium (3.5-5.1) mmol/L Chloride (98-107) mmol/L Carbon Dioxide (22-30) mmol/L Anion Gap (5-15) MEQ/L BUN (7-17) mg/dL Creatinine (0.52-1.04) mg/dL Estimated GFR ML/MIN Glucose (74-106) mg/dL Lactic Acid (0.4-2.0) Calcium (8.4-10.2) mg/dL Total Bilirubin (0.2-1.3) mg/dL AST (14-36) U/L ALT (0-35) U/L Alkaline Phosphatase (38-126) U/L Troponin I < 0.012 (0.000-0.033) ng/mL Serum Total Protein (6.3-8.2) g/dL Albumin (3.5-5.0) g/dL Lipase (23-300) U/L Urine Color Yellow (Yellow) Urine Appearance Clear (Clear) Urine pH 6.0 (4.6-8.0) Ur Specific [place] <=1.005 (1.005-1.030) Urine Protein Negative (Negative) Urine Glucose (UA) Negative (Negative) mg/dL Urine Ketones Negative (Negative) Urine Blood Negative (Negative) Urine Nitrite Negative (Negative) Urine Bilirubin Negative (Negative) Urine Urobilinogen 0.2 (0.2) mg/dL Ur Leukocyte Esterase Negative (Negative) U Hyaline Cast (Auto) NONE SEEN (0-2) /LPF Urine Microscopic RBC 0-2 (0-5) /HPF Urine Microscopic WBC 0-2 (0-5) /HPF Ur Epithelial Cells None Seen (None Seen) /HPF Urine Bacteria None Seen (None Seen) /HPF Urine Culture Reflexed NO (NO) - Progress Progress: unchanged Discussed with DrDona: Gem Herrera Medical Desision Making - Discussion of managment Care discussed with:: specialist Reviewed:: Test results Agreed on:: Treatment plan, decision to admit, place in obs - Diagnostic Testing Diagnostic test were ordered, analyzed, and reviewed by me: Yes Radiological Interpretation: Reviewed by me - Risk of complications The pt has a mod risk of morbidity or mortality based on: Need for prescription drug management - Departure Departure Disposition: Observation Clinical Impression: Hyponatremia Condition: Fair Critical Care Time: No Referrals: KORIN OCONNOR MD [Primary Care Provider] - Follow up/PCP as directed
--- NOTE | 2023-11-17 11:49 | XRAY ---
Indication: Weakness. Comparison: August 26, 2023 Portable chest unchanged again hyperinflated and clear. Heart remains enlarged again with CT proven pericardial calcifications. Bony thorax intact again with osteopenia. No new/acute findings.
[2023-11-17 12:16] LABS: Absolute Neutrophil Ct (ANC) 6.31 x10^3/uL (1.4-6.9); BASOPHIL % 0.2 % (0.0-0.4); Basophil (Absolute #) 0.02 x10^3/uL (0-0.4); Eosinophil % 1.3 % (0.00-5.0); Eosinophil (Absolute #) 0.11 x10^3/uL (0-0.5); Hematocrit 28.3 % (35-47); Hemoglobin 9.8 g/dL (12.0-16.0); IMMATURE GRAN # 0.03 x10^3u/L (0.00-0.03); IMMATURE GRAN % 0.4 % (0.00-0.4); Lymphocyte (Absolute #) 1.18 x10^3/uL (1.0-4.6); Lymphocytes % 14.2 % (24.0-44.0); Mean Cell Volume 88.4 fL (78-100); Mean Corpuscular Hemoglobin 30.6 pg (26-32); Mean Corpuscular Hgb Concent. 34.6 g/dL (32-36); Mean Platelet Volume 9.9 fL (7.5-11.0); Monocyte (Absolute #) 0.65 x10^3/uL (0.0-1.3); Monocytes % 7.8 % (0.0-12.0); Neutrophil % 76.1 % (36.0-66.0); Platelet Count 262 x10^3/uL (150-450); Red Cell Distribution Width 11.7 % (11.5-14.0); White Blood Count 8.3 x10^3/uL (4.0-10.5)
[2023-11-17] MEDS ORDERED: TORAdol 30 mg Injection ONE (12:18)
[2023-11-17] MEDS: TORAdol 30 mg Injection IV ONE (12:20)
[2023-11-17 12:25] LABS: INR 0.94 (0.8-3.0); PROTIME 10.3 SECONDS (9.4-12.5)
[2023-11-17 12:25] LABS: ALBUMIN 4.1 g/dL (3.5-5.0); ANION GAP 14.6 MEQ/L (5-15); BILIRUBIN,TOTAL 0.6 mg/dL (0.2-1.3); Calcium 10.2 mg/dL (8.4-10.2); Creatinine 1 1.21 mg/dL (0.52-1.04); EST GLOMERULAR FILTRATION RATE 42.8 ML/MIN; Potassium 4.6 mmol/L (3.5-5.1)
[2023-11-17 15:07] VITALS: RESP 16
--- NOTE | 2023-11-17 15:08 | PCM.HP ---
History of Present Illness - Chief Complaint Chief Complaint: hyponatremia Date: 11/17/23 History of Present Illness: is a 88 year old female with PMHX of cataracts, CHF, CAD, hyperlipidemia, CKD, fibroids, anemia, skin CA, pericardectomy, cardiac stent 2005, and hysterectomy. Patient is an 88-year-old white female who presents with a primary complaint of generalized weakness that worsened over the weekened. She says that her problems arise because of low sodium which is a complication of being treated for an extended period of time by Entresto. She last took Entresto Friday. She also complains of some nausea and headache recently but not today. She was scheduled for an appointment with Dr. 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 She was scheduled for a right leg surgery with Dr. Barajas ( podiatry) however because of her sodium apparently being extremely low it was canceled by Dr. Mitchell. She reports a chronic RLE leg wound from skin cancer removed 2 years ago that will not heal. Area is currently wrapped. Na+ 124 on admission. IV fluids gave in ER. This was stopped and bicarb gtt started. Carbon dioxide is 15. 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 Labs ordered for further evaluation of low sodium and nephrology consulted. PT and OT eval ordered for weakness. She denies CP, SOB, abd. pain, N/V/D. - Review of Systems Constitutional: Weakness, No Fever, No Chills Eyes: No Symptoms Ears, Nose, & Throat: No Symptoms Respiratory: No Cough, No Short Of Breath Cardiac: No Chest Pain, No Edema, No Syncope Abdominal/Gastrointestinal: No Abdominal Pain, No Nausea, No Vomiting, No Diarrhea Genitourinary Symptoms: No Dysuria Musculoskeletal: No Back Pain, No Neck Pain Skin: No Rash Neurological: No Dizziness, No Focal Weakness, No Sensory Changes Psychological: No Symptoms Endocrine: No Symptoms Hematologic/Lymphatic: No Symptoms Immunological/Allergic: No Symptoms Medications & Allergies Home Medications: Home Medication List Aspirin [Aspirin EC] 81 mg PO UD 07/06/21 [History Confirmed 11/17/23] Simvastatin 20Mg [Zocor 20Mg] 20 mg PO DAILY 07/06/21 [History Confirmed 11/17/23] Sacubitril/Valsartan [Entresto 49 mg-51 mg Tablet] 49 - 51 mg PO BID 07/21/23 [History Confirmed 11/17/23] Allergies/Adverse Reactions: Allergies Allergy/AdvReac Type Severity Reaction Status Date / Time amoxicillin [Amoxicillin] Allergy Intermediate facial Verified 11/17/23 14:34 swelling and flushed promethazine [From Phenergan] Allergy Mild Verified 11/17/23 14:34 metronidazole [From Flagyl] Allergy Unknown Verified 11/17/23 14:34 Penicillins Allergy Unknown Verified 11/17/23 14:34 Sulfa (Sulfonamide Allergy Unknown Verified 11/17/23 14:34 Antibiotics) clindamycin AdvReac Diarrhea Verified 11/17/23 14:34 levofloxacin [From Levaquin] AdvReac elevated Verified 11/17/23 14:34 blood pressure and agitation - Past Medical History Past Medical History: Yes Neurological History: No Pertinent History ENT History: Cataracts Cardiac History: Congestive Heart Failure, Coronary Artery Disease, High Cholesterol, Other Respiratory History: No Pertinent History Endocrine Medical History: No Pertinent History Musculoskelatal History: No Pertinent History GI Medical History: No Pertinent History, Other History: Other Pyscho-Social History: No Pertinent History Reproductive Disorders: Fibroids Comment: Skin cancer on RLE; began radiation in 2021, hx cdiff, pericardicectomy, stent placed 2005 - Female History Are you now?: No - Past Surgical History Past Surgical History: Yes Neuro Surgical History: No Pertinent History Cardiac History: Cardiac Catheterization, Cardiac Stent, Other Respiratory Surgery: No Pertinent History GI Surgical History: Appendectomy Genitourinary Surgical Hx: No Pertinent History Musculskeletal Surgical Hx: No Pertinent History Female Surgical History: Hysterectomy Other Surgical History: skin cancer removal on right leg, pericardicectomy, stent placed 2005 - Social History Smoking Status: Never smoker Exposure to second hand smoke: No Alcohol: None Drug Use: none - Social Determinants of Health Will the patient participate in the screening: Yes Do you worry about a steady place to live?: No Do you have any problems with any of the following?: No known problems In the past 12 months,have you had to go without utilities?: No Have you or anyone in your house had to go without enough: No Transportation Issues: No Has anyone in your support network made you feel unsafe?: No Does the patient want assistance with any of the above?: No - Physical Exam Vital Signs: Vital Signs - 24 hr Temp Pulse Resp BP BP Pulse Ox 11/17/23 14:46 97.7 F 79 20 160/74 94 L 11/17/23 13:42 99 11/17/23 13:30 73 18 147/71 98 11/17/23 13:00 81 23 158/72 98 11/17/23 12:30 70 15 178/72 97 11/17/23 12:17 74 21 177/87 98 11/17/23 12:10 82 24 98 11/17/23 12:02 83 21 98 11/17/23 11:31 75 23 179/50 98 11/17/23 11:15 81 16 187/87 97 11/17/23 11:00 91 H 24 180/70 98 11/17/23 10:37 87 20 183/84 99 General Appearance: no apparent distress, alert, thin Neurologic Exam: alert, oriented x 3, cooperative, normal mood/affect, nml cerebellar function, nml station & gait, sensation nml, abnormal gait, No motor deficits Eye Exam: PERRL/EOMI, eyes nml inspection Ears, Nose, Throat Exam: normal ENT inspection, TMs normal, pharynx normal, moist mucous membranes Neck Exam: normal inspection, non-tender, supple, full range of motion Respiratory Exam: normal breath sounds, lungs clear, No respiratory distress Cardiovascular Exam: regular rate/rhythm, normal heart sounds, normal peripheral pulses Gastrointestinal/Abdomen Exam: soft, normal bowel sounds, No tenderness, No mass Back Exam: normal inspection, normal range of motion, No CVA tenderness, No vertebral tenderness Extremity Exam: normal inspection, normal range of motion, pelvis stable Skin Exam: normal color, warm, dry, No rash Lymphatic Exam: No adenopathy Results - Labs Lab/Micro Results: Lab Results-Last 24 Hours 11/17/23 11/17/23 11/17/23 Range/Units 11:15 11:48 11:48 WBC (4.0-10.5) x10^3/uL RBC (4.1-5.4) x10^6/uL Hgb (12.0-16.0) g/dL Hct (35-47) % MCV (78-100) fL MCH (26-32) pg MCHC (32-36) g/dL RDW (11.5-14.0) % Plt Count (150-450) x10^3/uL MPV (7.5-11.0) fL Gran % (36.0-66.0) % Immature Gran % (Auto) (0.00-0.4) % Nucleat RBC Rel Count (0.00-0.1) % Eos # (Auto) (0-0.5) x10^3/uL Immature Gran # (Auto) (0.00-0.03) x10^3u/L Absolute Lymphs (auto) (1.0-4.6) x10^3/uL Absolute Monos (auto) (0.0-1.3) x10^3/uL Absolute Nucleated RBC (0.00-0.01) x10^3u/L Lymphocytes % (24.0-44.0) % Monocytes % (0.0-12.0) % Eosinophils % (0.00-5.0) % Basophils % (0.0-0.4) % Absolute Granulocytes (1.4-6.9) x10^3/uL Basophils # (0-0.4) x10^3/uL PT 10.3 (9.4-12.5) SECONDS INR 0.94 (0.8-3.0) Sodium (135-145) mmol/L Potassium (3.5-5.1) mmol/L Chloride (98-107) mmol/L Carbon Dioxide (22-30) mmol/L Anion Gap (5-15) MEQ/L BUN (7-17) mg/dL Creatinine (0.52-1.04) mg/dL Estimated GFR ML/MIN Glucose (74-106) mg/dL Lactic Acid (0.4-2.0) Calcium (8.4-10.2) mg/dL Total Bilirubin (0.2-1.3) mg/dL AST (14-36) U/L ALT (0-35) U/L Alkaline Phosphatase (38-126) U/L Troponin I < 0.012 (0.000-0.033) ng/mL Serum Total Protein (6.3-8.2) g/dL Albumin (3.5-5.0) g/dL Lipase (23-300) U/L Urine Color Yellow (Yellow) Urine Appearance Clear (Clear) Urine pH 6.0 (4.6-8.0) Ur Specific [place] <=1.005 (1.005-1.030) Urine Protein Negative (Negative) Urine Glucose (UA) Negative (Negative) mg/dL Urine Ketones Negative (Negative) Urine Blood Negative (Negative) Urine Nitrite Negative (Negative) Urine Bilirubin Negative (Negative) Urine Urobilinogen 0.2 (0.2) mg/dL Ur Leukocyte Esterase Negative (Negative) U Hyaline Cast (Auto) NONE SEEN (0-2) /LPF Urine Microscopic RBC 0-2 (0-5) /HPF Urine Microscopic WBC 0-2 (0-5) /HPF Ur Epithelial Cells None Seen (None Seen) /HPF Urine Bacteria None Seen (None Seen) /HPF Urine Culture Reflexed NO (NO) 11/17/23 11/17/23 11/17/23 Range/Units 11:54 12:05 12:05 WBC 8.3 (4.0-10.5) x10^3/uL RBC 3.20 L (4.1-5.4) x10^6/uL Hgb 9.8 L (12.0-16.0) g/dL Hct 28.3 L (35-47) % MCV 88.4 (78-100) fL MCH 30.6 (26-32) pg MCHC 34.6 (32-36) g/dL RDW 11.7 (11.5-14.0) % Plt Count 262 (150-450) x10^3/uL MPV 9.9 (7.5-11.0) fL Gran % 76.1 H (36.0-66.0) % Immature Gran % (Auto) 0.4 (0.00-0.4) % Nucleat RBC Rel Count 0.0 (0.00-0.1) % Eos # (Auto) 0.11 (0-0.5) x10^3/uL Immature Gran # (Auto) 0.03 (0.00-0.03) x10^3u/L Absolute Lymphs (auto) 1.18 (1.0-4.6) x10^3/uL Absolute Monos (auto) 0.65 (0.0-1.3) x10^3/uL Absolute Nucleated RBC 0.00 (0.00-0.01) x10^3u/L Lymphocytes % 14.2 L (24.0-44.0) % Monocytes % 7.8 (0.0-12.0) % Eosinophils % 1.3 (0.00-5.0) % Basophils % 0.2 (0.0-0.4) % Absolute Granulocytes 6.31 (1.4-6.9) x10^3/uL Basophils # 0.02 (0-0.4) x10^3/uL PT (9.4-12.5) SECONDS INR (0.8-3.0) Sodium 124 L (135-145) mmol/L Potassium 4.6 (3.5-5.1) mmol/L Chloride 98 (98-107) mmol/L Carbon Dioxide 15 L* (22-30) mmol/L Anion Gap 14.6 (5-15) MEQ/L BUN 21 H (7-17) mg/dL Creatinine 1.21 H (0.52-1.04) mg/dL Estimated GFR 42.8 ML/MIN Glucose 106 (74-106) mg/dL Lactic Acid 0.6 (0.4-2.0) Calcium 10.2 (8.4-10.2) mg/dL Total Bilirubin 0.60 (0.2-1.3) mg/dL AST 29 (14-36) U/L ALT 17 (0-35) U/L Alkaline Phosphatase 103 (38-126) U/L Troponin I (0.000-0.033) ng/mL Serum Total Protein 7.0 (6.3-8.2) g/dL Albumin 4.1 (3.5-5.0) g/dL Lipase 47 (23-300) U/L Urine Color (Yellow) Urine Appearance (Clear) Urine pH (4.6-8.0) Ur Specific [place] (1.005-1.030) Urine Protein (Negative) Urine Glucose (UA) (Negative) mg/dL Urine Ketones (Negative) Urine Blood (Negative) Urine Nitrite (Negative) Urine Bilirubin (Negative) Urine Urobilinogen (0.2) mg/dL Ur Leukocyte Esterase (Negative) U Hyaline Cast (Auto) (0-2) /LPF Urine Microscopic RBC (0-5) /HPF Urine Microscopic WBC (0-5) /HPF Ur Epithelial Cells (None Seen) /HPF Urine Bacteria (None Seen) /HPF Urine Culture Reflexed (NO) - Radiology Impressions Radiology Exams & Impressions: Radiology Procedures Category Date Time Status CHEST 1 VIEW (PORTABLE) Stat Exams 11/17/23 10:59 Completed Assessment/Plan (1) Hyponatremia Current Visit: Yes Status: Acute Assessment & Plan: - 2:2 entresto, CHF, renal failure- likely hypervolemic hypoosmolar hyponatremia - Entresro held. - Na+ 124 - IVF gave in ER- stopped - sodium restriction - 1 L water restriction - nephrology consult - associated weakness- PT/OT - reports H/A and nausea recently but not today - Serum osmolality, urine sodium, urine creatinine, urine osmolality, BNP, TSH Code(s): E87.1 - HYPO-OSMOLALITY AND HYPONATREMIA (2) Weakness Current Visit: Yes Status: Acute Assessment & Plan: - 2:2 hyponatremia- see hyponatremia plan - PT/OT Code(s): R53.1 - WEAKNESS (3) Carbon dioxide, decreased level Current Visit: Yes Status: Acute Assessment & Plan: - Carbon dioxide 15 - bicarb gtt started. - 2:2 kidney disease Code(s): R79.81 - ABNORMAL BLOOD-GAS LEVEL (4) Anemia Current Visit: Yes Status: Chronic Qualifiers: Anemia type: due to chronic kidney disease Assessment & Plan: - likely 2:2 CKD - hgb 9.8- trend Code(s): D64.9 - ANEMIA, UNSPECIFIED (5) Hyperlipidemia Current Visit: Yes Status: Acute Assessment & Plan: - Continue statin Code(s): E78.5 - HYPERLIPIDEMIA, UNSPECIFIED (6) CAD (coronary artery disease) Current Visit: No Status: Chronic Assessment & Plan: - adds to complexity - follows Dr. Mitchell for cardiology - no recent echo to review- will request records. 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 Heart remains enlarged again with CT proven pericardial calcifications. Bony thorax intact again with osteopenia. No new/acute findings - Code(s): I50.9 - HEART FAILURE, UNSPECIFIED (8) Wound of right lower extremity Current Visit: Yes Status: Acute Assessment & Plan: - Podiatry consulted for chronic RLE wound- currently wrapped. - Pt states RLE wound ongoing for 2 yrs now. Code(s): S81.801A - UNSPECIFIED OPEN WOUND, RIGHT LOWER LEG, INITIAL ENCOUNTER (9) Acute on chronic renal failure Current Visit: Yes Status: Acute Assessment & Plan: - creat 1.21, baseline 1.15 - nephrology consulted. VTE: Lovenox Next of KIN: Son - Brain [place] [phone] D/C plan: 1-2 days Code status: SCO/DNR Code(s): N17.9 - ACUTE KIDNEY FAILURE, UNSPECIFIED; N18.9 - CHRONIC KIDNEY DISEASE, UNSPECIFIED Telemedicine Encounter - Telemedicine Encounter Telemedicine Encounter: The entirety of this encounter was performed via Telemedicine" This visit was performed using real-time audio and video connection between my location and thepatients locationwith the assistance of a surrogateat the patients location. Written or verbal consent was obtained from the patient/guardian to perform this visit [email or web address]. Any patient questions regarding the telemedicine interaction were answered.
[2023-11-17 15:22] LABS: CREATININE,URINE RANDOM 21.4 MG/DL
[2023-11-17 15:42] LABS: TSH, 3RD Generation 1.786 mIU/L (0.470-4.680)
[2023-11-17] MEDS: Sodium Bicarbonate 50 MEQ/50 ML VIAL*** 150 MEQ in Dextrose 5%/Water IV Soln. 1000 ML 1... IV SCH (16:02)
[2023-11-17] MEDS: ZOCOR 20MG PO SCH (16:05)
[2023-11-17] MEDS: ENOXAPARIN SODIUM SQ SCH (16:06)
[2023-11-17] MEDS ORDERED: NORCO 5/325 MG PO PRN (20:42)
[2023-11-17] MEDS: TYLENOL 325 MG PO PRN (20:48)
[2023-11-18] MEDS ORDERED: SODIUM BICARBONATE 50 MEQ/50 ML ABBOJECT IV ONE (02:32)
[2023-11-18] MEDS ORDERED: Dextrose 5%/Water IV Soln. 1000 ML 0 ML IV ONE (02:32)
[2023-11-18 04:42] LABS: Hemoglobin 7.8 g/dL (12.0-16.0); Mean Cell Volume 85.6 fL (78-100); Mean Corpuscular Hemoglobin 30.4 pg (26-32); Mean Corpuscular Hgb Concent. 35.5 g/dL (32-36); Mean Platelet Volume 9.5 fL (7.5-11.0); Platelet Count 230 x10^3/uL (150-450); Red Blood Count 2.57 x10^6/uL (4.1-5.4); White Blood Count 5.9 x10^3/uL (4.0-10.5)
[2023-11-18 05:09] LABS: ALBUMIN 3.2 g/dL (3.5-5.0); ANION GAP 9.3 MEQ/L (5-15); BILIRUBIN,TOTAL 0.3 mg/dL (0.2-1.3); Calcium 9.1 mg/dL (8.4-10.2); Creatinine 1 1.18 mg/dL (0.52-1.04); EST GLOMERULAR FILTRATION RATE 44.2 ML/MIN; Potassium 3.8 mmol/L (3.5-5.1); Total Protein 5.7 g/dL (6.3-8.2)
[2023-11-18] MEDS: ECOTRIN 81 MG PO SCH (09:02)
--- NOTE | 2023-11-18 11:24 | PCM.DS ---
Discharge Summary Date of Admission: 11/17/23 14:27 Date of Discharge: 11/18/23 Admitting Physician: BLANCA YOUNGBLOOD MD Consults: Consults on Case 11/17/23 14:40 Consult Nephrology ROUTINE 11/17/23 16:41 Consult Podiatry ROUTINE 11/17/23 16:54 Nutritional Consult ROUTINE Primary Care Provider: KORIN OCONNOR Allergies Allergies amoxicillin [Amoxicillin] Allergy (Intermediate, Verified 11/17/23 14:34) facial swelling and flushed promethazine [From Phenergan] Allergy (Mild, Verified 11/17/23 14:34) metronidazole [From Flagyl] Allergy (Unknown, Verified 11/17/23 14:34) cant rememer Penicillins Allergy (Unknown, Verified 11/17/23 14:34) cant remember Sulfa (Sulfonamide Antibiotics) Allergy (Unknown, Verified 11/17/23 14:34) cant rememeber clindamycin Adverse Reaction (Verified 11/17/23 14:34) Diarrhea pt says it gave her cdiff levofloxacin [From Levaquin] Adverse Reaction (Verified 11/17/23 14:34) elevated blood pressure and agitation Hospital Summary - Hospital Course Hospital Course: 11/17/23 is a 88 year old female with PMHX of cataracts, CHF, CAD, hy perlipidemia, CKD, fibroids, anemia, skin CA, pericardectomy, cardiac stent 2005, and hysterectomy. Patient is an 88-year-old white female who presents with a primary complaint of generalized weakness that worsened over the weekened. She says that her problems arise because of low sodium which is a complication of being treated for an extended period of time by Entresto. She last took Entresto Friday. She also complains of some nausea and headache recently but not today. She was scheduled for an appointment with Dr. Mitchell her digital forensics investigator, but she canceled that appointment because she felt too weak to go so she came to the ER. She was scheduled for a right leg surgery with Dr. Barajas ( podiatry) however because of her sodium apparently being extremely low it was canceled by Dr. Mitchell. She reports a chronic RLE leg wound from skin cancer removed 2 years ago that will not heal. Area is currently wrapped. Na+ 124 on admission. IV fluids gave in ER. This was stopped and bicarb gtt started. Carbon dioxide is 15. She appears to have acute on chronic renal failure and has never seen a manager wound care before. Labs ordered for further evaluation of low sodium and nephrology consulted. PT and OT eval ordered for weakness. She denies CP, SOB, abd. pain, N/V/D. 11/18/23 Pt sitting in the chir thus morning she is c/o continued chronic RLE pain and lumbar back pain. Pain meds help to keep pain under control and she reports it takes the edge off so she can rest. She was unable to rate her pain on a scale of 1-10. Carbon dioxide now WNL and bicarb gtt stopped this morning. Na+ remains at 124, same as yesterday. Discussed pt case with nephrology- Dr. Hernandez and he would like the pt tx to [facility]. Pt chooses [facility] as her digital forensics investigator Dr. Mitchell also comes to the hospital. This morning pt was on 2lNC at 94%. Now not currently on oxygen. Due to her heart and CKD hx she is a complicated pt. NS restarted at 50ml/hr. Podiatry came to see pt last night and rewrapped pt's righ t leg. Occult stool ordered as Hgb 7.8. This AM. Pt denies any dark or bloody stools. She does have a hx of chronic anemia she reports. She admits to continued weakness and H/A. She denies CP, SOB, abd. pain, V/D. - Vitals & Intake/Output Vital Signs: Vital Signs Temperature 97.2 F 11/18/23 07:03 Pulse Rate 66 11/18/23 07:03 Respiratory Rate 16 11/18/23 07:03 Blood Pressure 138/63 11/18/23 07:03 O2 Sat by Pulse Oximetry 94 L 11/18/23 07:03 Intake & Output: Intake & Output 11/15/23 11/16/23 11/17/23 11/18/23 11:59 11:59 11:59 11:59 Intake Total 420 Output Total 500 Balance -80 Weight 59.8 kg 59.8 kg - Lab Result Diagrams: 11/18/23 04:37 11/18/23 04:37 Lab Results-Last 24 Hrs: Lab Results-Last 24 Hours 11/17/23 11/17/23 11/17/23 Range/Units 11:15 11:48 11:48 WBC (4.0-10.5) x10^3/uL RBC (4.1-5.4) x10^6/uL Hgb (12.0-16.0) g/dL Hct (35-47) % MCV (78-100) fL MCH (26-32) pg MCHC (32-36) g/dL RDW (11.5-14.0) % Plt Count (150-450) x10^3/uL MPV (7.5-11.0) fL Gran % (36.0-66.0) % Immature Gran % (Auto) (0.00-0.4) % Nucleat RBC Rel Count (0.00-0.1) % Eos # (Auto) (0-0.5) x10^3/uL Immature Gran # (Auto) (0.00-0.03) x10^3u/L Absolute Lymphs (auto) (1.0-4.6) x10^3/uL Absolute Monos (auto) (0.0-1.3) x10^3/uL Absolute Nucleated RBC (0.00-0.01) x10^3u/L Lymphocytes % (24.0-44.0) % Monocytes % (0.0-12.0) % Eosinophils % (0.00-5.0) % Basophils % (0.0-0.4) % Absolute Granulocytes (1.4-6.9) x10^3/uL Basophils # (0-0.4) x10^3/uL PT 10.3 (9.4-12.5) SECONDS INR 0.94 (0.8-3.0) Sodium (135-145) mmol/L Potassium (3.5-5.1) mmol/L Chloride (98-107) mmol/L Carbon Dioxide (22-30) mmol/L Anion Gap (5-15) MEQ/L BUN (7-17) mg/dL Creatinine (0.52-1.04) mg/dL Estimated GFR ML/MIN Glucose (74-106) mg/dL Lactic Acid (0.4-2.0) Calcium (8.4-10.2) mg/dL Total Bilirubin (0.2-1.3) mg/dL AST (14-36) U/L ALT (0-35) U/L Alkaline Phosphatase (38-126) U/L Troponin I < 0.012 (0.000-0.033) ng/mL NT-Pro-B Natriuret Pep (<300) pg/mL Serum Total Protein (6.3-8.2) g/dL Albumin (3.5-5.0) g/dL Triglycerides (30-150) mg/dL Cholesterol (50-200) mg/dL LDL Cholesterol (30-100) mg/dL HDL Cholesterol (40-60) mg/dL Heart Disease Risk Ratio Lipase (23-300) U/L TSH 3rd Generation (0.470-4.680) mIU/L Urine Color Yellow (Yellow) Urine Appearance Clear (Clear) Urine pH 6.0 (4.6-8.0) Ur Specific [place] <=1.005 (1.005-1.030) Urine Protein Negative (Negative) Urine Glucose (UA) Negative (Negative) mg/dL Urine Ketones Negative (Negative) Urine Blood Negative (Negative) Urine Nitrite Negative (Negative) Urine Bilirubin Negative (Negative) Urine Urobilinogen 0.2 (0.2) mg/dL Ur Leukocyte Esterase Negative (Negative) U Hyaline Cast (Auto) NONE SEEN (0-2) /LPF Urine Microscopic RBC 0-2 (0-5) /HPF Urine Microscopic WBC 0-2 (0-5) /HPF Ur Epithelial Cells None Seen (None Seen) /HPF Urine Bacteria None Seen (None Seen) /HPF Urine Culture Reflexed NO (NO) Ur Random Creatinine MG/DL Urine Sodium (30-90) mmol/L 11/17/23 11/17/23 11/17/23 Range/Units 11:54 12:05 12:05 WBC 8.3 (4.0-10.5) x10^3/uL RBC 3.20 L (4.1-5.4) x10^6/uL Hgb 9.8 L (12.0-16.0) g/dL Hct 28.3 L (35-47) % MCV 88.4 (78-100) fL MCH 30.6 (26-32) pg MCHC 34.6 (32-36) g/dL RDW 11.7 (11.5-14.0) % Plt Count 262 (150-450) x10^3/uL MPV 9.9 (7.5-11.0) fL Gran % 76.1 H (36.0-66.0) % Immature Gran % (Auto) 0.4 (0.00-0.4) % Nucleat RBC Rel Count 0.0 (0.00-0.1) % Eos # (Auto) 0.11 (0-0.5) x10^3/uL Immature Gran # (Auto) 0.03 (0.00-0.03) x10^3u/L Absolute Lymphs (auto) 1.18 (1.0-4.6) x10^3/uL Absolute Monos (auto) 0.65 (0.0-1.3) x10^3/uL Absolute Nucleated RBC 0.00 (0.00-0.01) x10^3u/L Lymphocytes % 14.2 L (24.0-44.0) % Monocytes % 7.8 (0.0-12.0) % Eosinophils % 1.3 (0.00-5.0) % Basophils % 0.2 (0.0-0.4) % Absolute Granulocytes 6.31 (1.4-6.9) x10^3/uL Basophils # 0.02 (0-0.4) x10^3/uL PT (9.4-12.5) SECONDS INR (0.8-3.0) Sodium 124 L (135-145) mmol/L Potassium 4.6 (3.5-5.1) mmol/L Chloride 98 (98-107) mmol/L Carbon Dioxide 15 L* (22-30) mmol/L Anion Gap 14.6 (5-15) MEQ/L BUN 21 H (7-17) mg/dL Creatinine 1.21 H (0.52-1.04) mg/dL Estimated GFR 42.8 ML/MIN Glucose 106 (74-106) mg/dL Lactic Acid 0.6 (0.4-2.0) Calcium 10.2 (8.4-10.2) mg/dL Total Bilirubin 0.60 (0.2-1.3) mg/dL AST 29 (14-36) U/L ALT 17 (0-35) U/L Alkaline Phosphatase 103 (38-126) U/L Troponin I (0.000-0.033) ng/mL NT-Pro-B Natriuret Pep (<300) pg/mL Serum Total Protein 7.0 (6.3-8.2) g/dL Albumin 4.1 (3.5-5.0) g/dL Triglycerides (30-150) mg/dL Cholesterol (50-200) mg/dL LDL Cholesterol (30-100) mg/dL HDL Cholesterol (40-60) mg/dL Heart Disease Risk Ratio Lipase 47 (23-300) U/L TSH 3rd Generation (0.470-4.680) mIU/L Urine Color (Yellow) Urine Appearance (Clear) Urine pH (4.6-8.0) Ur Specific [place] (1.005-1.030) Urine Protein (Negative) Urine Glucose (UA) (Negative) mg/dL Urine Ketones (Negative) Urine Blood (Negative) Urine Nitrite (Negative) Urine Bilirubin (Negative) Urine Urobilinogen (0.2) mg/dL Ur Leukocyte Esterase (Negative) U Hyaline Cast (Auto) (0-2) /LPF Urine Microscopic RBC (0-5) /HPF Urine Microscopic WBC (0-5) /HPF Ur Epithelial Cells (None Seen) /HPF Urine Bacteria (None Seen) /HPF Urine Culture Reflexed (NO) Ur Random Creatinine MG/DL Urine Sodium (30-90) mmol/L 11/17/23 11/17/23 11/17/23 Range/Units 14:50 14:55 15:09 WBC (4.0-10.5) x10^3/uL RBC (4.1-5.4) x10^6/uL Hgb (12.0-16.0) g/dL Hct (35-47) % MCV (78-100) fL MCH (26-32) pg MCHC (32-36) g/dL RDW (11.5-14.0) % Plt Count (150-450) x10^3/uL MPV (7.5-11.0) fL Gran % (36.0-66.0) % Immature Gran % (Auto) (0.00-0.4) % Nucleat RBC Rel Count (0.00-0.1) % Eos # (Auto) (0-0.5) x10^3/uL Immature Gran # (Auto) (0.00-0.03) x10^3u/L Absolute Lymphs (auto) (1.0-4.6) x10^3/uL Absolute Monos (auto) (0.0-1.3) x10^3/uL Absolute Nucleated RBC (0.00-0.01) x10^3u/L Lymphocytes % (24.0-44.0) % Monocytes % (0.0-12.0) % Eosinophils % (0.00-5.0) % Basophils % (0.0-0.4) % Absolute Granulocytes (1.4-6.9) x10^3/uL Basophils # (0-0.4) x10^3/uL PT (9.4-12.5) SECONDS INR (0.8-3.0) Sodium (135-145) mmol/L Potassium (3.5-5.1) mmol/L Chloride (98-107) mmol/L Carbon Dioxide (22-30) mmol/L Anion Gap (5-15) MEQ/L BUN (7-17) mg/dL Creatinine (0.52-1.04) mg/dL Estimated GFR ML/MIN Glucose (74-106) mg/dL Lactic Acid (0.4-2.0) Calcium (8.4-10.2) mg/dL Total Bilirubin (0.2-1.3) mg/dL AST (14-36) U/L ALT (0-35) U/L Alkaline Phosphatase (38-126) U/L Troponin I < 0.012 (0.000-0.033) ng/mL NT-Pro-B Natriuret Pep 6640 (<300) pg/mL Serum Total Protein (6.3-8.2) g/dL Albumin (3.5-5.0) g/dL Triglycerides 67 (30-150) mg/dL Cholesterol 196 (50-200) mg/dL LDL Cholesterol 91 (30-100) mg/dL HDL Cholesterol 76 H (40-60) mg/dL Heart Disease Risk Ratio 3.0 Lipase (23-300) U/L TSH 3rd Generation 1.786 (0.470-4.680) mIU/L Urine Color (Yellow) Urine Appearance (Clear) Urine pH (4.6-8.0) Ur Specific [place] (1.005-1.030) Urine Protein (Negative) Urine Glucose (UA) (Negative) mg/dL Urine Ketones (Negative) Urine Blood (Negative) Urine Nitrite (Negative) Urine Bilirubin (Negative) Urine Urobilinogen (0.2) mg/dL Ur Leukocyte Esterase (Negative) U Hyaline Cast (Auto) (0-2) /LPF Urine Microscopic RBC (0-5) /HPF Urine Microscopic WBC (0-5) /HPF Ur Epithelial Cells (None Seen) /HPF Urine Bacteria (None Seen) /HPF Urine Culture Reflexed (NO) Ur Random Creatinine 21.4 MG/DL Urine Sodium 45 (30-90) mmol/L 11/17/23 11/18/23 11/18/23 Range/Units 18:55 04:37 04:37 WBC 5.9 (4.0-10.5) x10^3/uL RBC 2.57 L (4.1-5.4) x10^6/uL Hgb 7.8 L D (12.0-16.0) g/dL Hct 22.0 L (35-47) % MCV 85.6 (78-100) fL MCH 30.4 (26-32) pg MCHC 35.5 (32-36) g/dL RDW 12.0 (11.5-14.0) % Plt Count 230 (150-450) x10^3/uL MPV 9.5 (7.5-11.0) fL Gran % (36.0-66.0) % Immature Gran % (Auto) (0.00-0.4) % Nucleat RBC Rel Count (0.00-0.1) % Eos # (Auto) (0-0.5) x10^3/uL Immature Gran # (Auto) (0.00-0.03) x10^3u/L Absolute Lymphs (auto) (1.0-4.6) x10^3/uL Absolute Monos (auto) (0.0-1.3) x10^3/uL Absolute Nucleated RBC (0.00-0.01) x10^3u/L Lymphocytes % (24.0-44.0) % Monocytes % (0.0-12.0) % Eosinophils % (0.00-5.0) % Basophils % (0.0-0.4) % Absolute Granulocytes (1.4-6.9) x10^3/uL Basophils # (0-0.4) x10^3/uL PT (9.4-12.5) SECONDS INR (0.8-3.0) Sodium 124 L (135-145) mmol/L Potassium 3.8 (3.5-5.1) mmol/L Chloride 93 L (98-107) mmol/L Carbon Dioxide 25 (22-30) mmol/L Anion Gap 9.3 (5-15) MEQ/L BUN 21 H (7-17) mg/dL Creatinine 1.18 H (0.52-1.04) mg/dL Estimated GFR 44.2 ML/MIN Glucose 110 H (74-106) mg/dL Lactic Acid (0.4-2.0) Calcium 9.1 (8.4-10.2) mg/dL Total Bilirubin 0.30 (0.2-1.3) mg/dL AST 26 (14-36) U/L ALT 15 (0-35) U/L Alkaline Phosphatase 70 (38-126) U/L Troponin I 0.016 (0.000-0.033) ng/mL NT-Pro-B Natriuret Pep (<300) pg/mL Serum Total Protein 5.7 L (6.3-8.2) g/dL Albumin 3.2 L (3.5-5.0) g/dL Triglycerides (30-150) mg/dL Cholesterol (50-200) mg/dL LDL Cholesterol (30-100) mg/dL HDL Cholesterol (40-60) mg/dL Heart Disease Risk Ratio Lipase (23-300) U/L TSH 3rd Generation (0.470-4.680) mIU/L Urine Color (Yellow) Urine Appearance (Clear) Urine pH (4.6-8.0) Ur Specific [place] (1.005-1.030) Urine Protein (Negative) Urine Glucose (UA) (Negative) mg/dL Urine Ketones (Negative) Urine Blood (Negative) Urine Nitrite (Negative) Urine Bilirubin (Negative) Urine Urobilinogen (0.2) mg/dL Ur Leukocyte Esterase (Negative) U Hyaline Cast (Auto) (0-2) /LPF Urine Microscopic RBC (0-5) /HPF Urine Microscopic WBC (0-5) /HPF Ur Epithelial Cells (None Seen) /HPF Urine Bacteria (None Seen) /HPF Urine Culture Reflexed (NO) Ur Random Creatinine MG/DL Urine Sodium (30-90) mmol/L - Radiology Exams Ordered Rad Exams-Entire Visit: Radiology Procedures Category Date Time Status CHEST 1 VIEW (PORTABLE) Stat Exams 11/17/23 10:59 Completed - Procedures and Test Procedures and Tests throughout Hospitalization: Therapy Orders & Screens 11/17/23 14:44 PT Eval & Treat (MD Order) ONCE Reason for Eval:: weakness Diagnosis: Hyponatremia OT Eval and Treat (MD Order) ONCE Comment: Physician Instructions: Reason For Exam: Diagnosis: Hyponatremia Discharge Exam General Appearance: no apparent distress, thin Neurologic Exam: alert, oriented x 3, cooperative, normal mood/affect, nml cerebellar function, sensation nml, motor weakness, other (slow to respond to qu estions), No motor deficits Eye Exam: PERRL, EOMI, eyes nml inspection Ears, Nose, Throat Exam: normal ENT inspection, pharynx normal, moist mucous me mbranes Neck Exam: normal inspection, non-tender, supple, full range of motion Respiratory Exam: normal breath sounds, lungs clear, No respiratory distress Cardiovascular Exam: regular rate/rhythm, normal heart sounds, normal peripheral pulses Gastrointestinal/Abdomen Exam: soft, No tenderness, No mass Pelvic Exam: deferred Rectal Exam: deferred Back Exam: normal inspection, decreased range of motion (lumbar), No CVA tend erness, No vertebral tenderness Extremity Exam: normal inspection, normal range of motion, tenderness (RLE- wrapped) Skin Exam: normal color, warm, dry Final Diagnosis/Problem List - Final Discharge Diagnosis/Problem (1) Hyponatremia Current Visit: Yes Status: Acute Code(s): E87.1 - HYPO-OSMOLALITY AND HYPONATREMIA (2) Weakness Current Visit: Yes Status: Acute Code(s): R53.1 - WEAKNESS (3) Carbon dioxide, decreased level Current Visit: Yes Status: Acute Code(s): R79.81 - ABNORMAL BLOOD-GAS LEVEL (4) Anemia Current Visit: Yes Status: Chronic Code(s): D64.9 - ANEMIA, UNSPECIFIED (5) Hyperlipidemia Current Visit: Yes Status: Acute Code(s): E78.5 - HYPERLIPIDEMIA, UNSPECIFIED (6) CAD (coronary artery disease) Current Visit: No Status: Chronic Code(s): I25.10 - ATHSCL HEART DISEASE OF [place] CORONARY ARTERY W/O ANG PCTRS (7) CHF (congestive heart failure) Current Visit: No Status: Acute Code(s): I50.9 - HEART FAILURE, UNSPECIFIED (8) Wound of right lower extremity Current Visit: Yes Status: Acute Code(s): S81.801A - UNSPECIFIED OPEN WOUND, RIGHT LOWER LEG, INITIAL ENCOUNTER (9) Acute on chronic renal failure Current Visit: Yes Status: Acute Assessment & Plan: (1) Hyponatremia Current Visit: Yes Status: Acute Assessment & Plan: - 2:2 entresto, CHF, renal failure- likely hypervolemic hypoosmolar hyponatremia - Entresro held. - Na+ 124 - IVF gave in ER- stopped d/t bicarb gtt started - sodium restriction - 1 L water restriction - nephrology consult - associated weakness- PT/OT - reports H/A and nausea recently but not today - Serum osmolality, urine sodium, urine creatinine, urine osmolality, BNP, TSH 6/4 - NS at 50 ml/hr started- bicarb gtt stopped - Discussed case with nephro and Dr. David rahman pt tx to higher level of care Code(s): E87.1 - HYPO-OSMOLALITY AND HYPONATREMIA (2) Weakness Current Visit: Yes Status: Acute Assessment & Plan: - 2:2 hyponatremia- see hyponatremia plan - PT/OT Code(s): R53.1 - WEAKNESS (3) Carbon dioxide, decreased level Current Visit: Yes Status: Acute Assessment & Plan: - Carbon dioxide 15 - bicarb gtt started. - 2:2 kidney disease 6/4 - carbon dioxide 25 - bicarb gtt stopped Code(s): R79.81 - ABNORMAL BLOOD-GAS LEVEL (4) Anemia Current Visit: Yes Status: Chronic Qualifiers: Anemia type: due to chronic kidney disease Assessment & Plan: - likely 2:2 CKD - hgb 9.8- trend 6/4 - hgb 7.8 - occult stool ordered Code(s): D64.9 - ANEMIA, UNSPECIFIED (5) Hyperlipidemia Current Visit: Yes Status: Acute Assessment & Plan: - Continue statin Code(s): E78.5 - HYPERLIPIDEMIA, UNSPECIFIED (6) CAD (coronary artery disease) Current Visit: No Status: Chronic Assessment & Plan: - adds to complexity - follows Dr. Mitchell for cardiology - no recent echo to review- will request records. 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 Heart remains enlarged again with CT proven pericardial calcifications. Bony thorax intact again with osteopenia. No new/acute findings Code(s): I50.9 - HEART FAILURE, UNSPECIFIED (8) Wound of right lower extremity Current Visit: Yes Status: Acute Assessment & Plan: - Podiatry consulted for chronic RLE wound- currently wrapped. - Pt states RLE wound ongoing for 2 yrs now. 11/17 - RLE rewrapped on evening of 11/16 Code(s): S81.801A - UNSPECIFIED OPEN WOUND, RIGHT LOWER LEG, INITIAL ENCOUNTER (9) Acute on chronic renal failure Current Visit: Yes Status: Acute Assessment & Plan: - creat 1.21, baseline 1.15 - nephrology consulted. 11/17 - Creat 1.18- improved - discussed case with nephrology- pt to tx to higher level of care. Code(s): N17.9 - ACUTE KIDNEY FAILURE, UNSPECIFIED; N18.9 - CHRONIC KIDNEY DISEASE, UNSPECIFIED - Discharge Discharge Date: 11/18/23 [facility] Condition: Fair Prescriptions: Continue Simvastatin 20Mg [Zocor 20Mg] 20 mg PO DAILY Aspirin [Aspirin EC] 81 mg PO UD Discontinued Sacubitril/Valsartan [Entresto 49 mg-51 mg Tablet] 49 - 51 mg PO BID Follow up with: KORIN OCONNOR MD [Primary Care Provider] - DAVID GILBERT MD [CONSULTING PHYSICIAN] -
[2023-11-18] MEDS: Sodium Chloride 0.9% 1000 ML 1,000 ML IV SCH (11:31)
[2023-11-18 11:46] VITALS: PULSE 89; TEMP 97.3; O2SAT 97
[2023-11-18 13:51] VITALS: BP 144/71
== END 2023-11-18 14:13 | disposition short-term general hospital (02) ==
LOC: ED 10:36 → MED SURG 14:27
PROVIDERS: ADMIT Internal Medicine; ATTEND Internal Medicine
DX: E87.1 Hypo-osmolality and hyponatremia (principal); R53.1 Weakness; R79.81 Abnormal blood-gas level; D64.9 Anemia, unspecified; E78.5 Hyperlipidemia, unspecified; I25.10 Atherosclerotic heart disease of native coronary artery without angina pectoris; I50.9 Heart failure, unspecified; S81.801A Unspecified open wound, right lower leg, initial encounter; N18.9 Chronic kidney disease, unspecified; Z85.828 Personal history of other malignant neoplasm of skin; N17.9 Acute kidney failure, unspecified; Z79.899 Other long term (current) drug therapy
CPT/HCPCS: 36000; 36415; 71045; 80053; 80061; 81001; 82570; 82947; 83605; 83690; 83721; 83880; 83930; 83935; 84300; 84443; 84484; 85025; 85027; 85305; 85610; 87040; 93005; 93268; 96374; 99285; J1650; J1885; A9270-GY; G0378

== ENCOUNTER 2023-11-25 15:30 | Observation (INO) | payer MEDICARE ==
--- NOTE | 2023-11-25 16:30 | PCM.HP ---
History of Present Illness - Chief Complaint Chief Complaint: hyponatremia, acidosis Date: 11/25/23 History of Present Illness: is a 88 year old female patient with PMHX of cataracts, CHF, CAD(follows with Dr. Mitchell), hyperlipidemia, CKD (Dr. Hernandez), fibroids, anemia, skin CA, pericardectomy, cardiac stent 2005, and hysterectomy direct admit for evaluation of weakness, metabolic acidosis, and hyponatremia. Patient was recently admitted 11/16-11/18/23 for similar issue. She was transferred at that time to [facility] under the advisement of her technical account manager Dr. Hernandez. Patient is a complicated case due to her history of pericardectomy/heart history and CKD. Patient states during her hospitalization at [facility] her Entresto was decreased. Her sodium on today's lab has improved to 129, her creat is at 1.38, and her CO2 level is at 15. The concern is fluid overload as the patient had a CTA today with hydration and fragile heart history. Plan is to start sodium bicarb drip and monitor closely. Patient lives home alone and may require rehab. - Review of Systems Constitutional: Fatigue, Weakness Eyes: No Symptoms Ears, Nose, & Throat: No Symptoms Respiratory: Short Of Breath Cardiac: No Symptoms Genitourinary Symptoms: No Symptoms Musculoskeletal: No Symptoms Skin: No Symptoms Neurological: No Symptoms Psychological: No Symptoms Endocrine: No Symptoms Hematologic/Lymphatic: No Symptoms Immunological/Allergic: No Symptoms Medications & Allergies Home Medications: Home Medication List Aspirin [Aspirin EC] 81 mg PO UD 07/06/21 [History Confirmed 11/25/23] Simvastatin 20Mg [Zocor 20Mg] 20 mg PO DAILY 07/06/21 [History Confirmed 11/25/23] Acetaminophen [Tylenol Extra Strength] 1,000 mg PO Q6HPRN PRN 11/25/23 [History Confirmed 11/25/23] Famotidine 20 mg PO BID 11/25/23 [History Confirmed 11/25/23] Hydralazine HCl 25 mg PO DAILY 11/25/23 [History Confirmed 11/25/23] Sildenafil Citrate 20 mg PO TID 11/25/23 [History Confirmed 11/25/23] Simvastatin 20Mg [Zocor 20Mg] 20 mg PO DAILY 11/25/23 [History Confirmed 11/25/23] methocarbamoL [Methocarbamol] 500 mg PO Q8HPRN PRN 11/25/23 [History Confirmed 11/25/23] Allergies/Adverse Reactions: Allergies Allergy/AdvReac Type Severity Reaction Status Date / Time amoxicillin [Amoxicillin] Allergy Intermediate facial Verified 11/25/23 15:45 swelling and flushed promethazine [From Phenergan] Allergy Mild Verified 11/25/23 15:45 metronidazole [From Flagyl] Allergy Unknown Verified 11/25/23 15:45 Penicillins Allergy Unknown Verified 11/25/23 15:45 Sulfa (Sulfonamide Allergy Unknown Verified 11/25/23 15:45 Antibiotics) clindamycin AdvReac Diarrhea Verified 11/25/23 15:45 levofloxacin [From Levaquin] AdvReac elevated Verified 11/25/23 15:45 blood pressure and agitation - Past Medical History Past Medical History: Yes Neurological History: No Pertinent History ENT History: Cataracts Cardiac History: Congestive Heart Failure, Coronary Artery Disease, High Cholesterol, Other Respiratory History: No Pertinent History Endocrine Medical History: No Pertinent History Musculoskelatal History: No Pertinent History GI Medical History: No Pertinent History, Other History: Other Pyscho-Social History: No Pertinent History Reproductive Disorders: Fibroids Comment: Skin cancer on RLE; began radiation in 2021, hx cdiff, pericardicectomy, stent placed 2005, pulmonary HTN - Past Surgical History Past Surgical History: Yes Neuro Surgical History: No Pertinent History Cardiac History: Cardiac Catheterization, Cardiac Stent, Other Respiratory Surgery: No Pertinent History GI Surgical History: Appendectomy Genitourinary Surgical Hx: No Pertinent History Musculskeletal Surgical Hx: No Pertinent History Female Surgical History: Hysterectomy Other Surgical History: skin cancer removal on right leg, pericardicectomy, stent placed 2005 - Social History Smoking Status: Never smoker Exposure to second hand smoke: No Alcohol: None Drug Use: none - Social Determinants of Health Will the patient participate in the screening: Yes Do you worry about a steady place to live?: No In the past 12 months,have you had to go without utilities?: No Have you or anyone in your house had to go without enough: No Transportation Issues: No Has anyone in your support network made you feel unsafe?: No Does the patient want assistance with any of the above?: No - Physical Exam General Appearance: mild distress Neurologic Exam: alert, oriented x 3, cooperative Eye Exam: PERRL/EOMI Ears, Nose, Throat Exam: dry mucous membranes Neck Exam: normal inspection Respiratory Exam: normal breath sounds, lungs clear Cardiovascular Exam: tachycardia Gastrointestinal/Abdomen Exam: soft, normal bowel sounds Pelvic Exam: not done Rectal Exam: deferred Back Exam: normal inspection Extremity Exam: other (right UE edema) Skin Exam: normal color Assessment/Plan (1) Hyponatremia Current Visit: Yes Status: Acute Assessment & Plan: -likely 2/2 to entresto - will hold tonight -improved from last visit now at 129 -will recheck CMP as pt had hydration prior to CTA today -fluid restriction 1.5L -sodium bicarb drip for acidosis -tele -Consider nephrology consult Code(s): E87.1 - HYPO-OSMOLALITY AND HYPONATREMIA (2) Metabolic acidosis Current Visit: Yes Status: Acute Assessment & Plan: -2/2 to CKD -bicarb drip started, will need to run slowly at 50ml/hr -monitor for fluid overload -tele -recheck BMP in 4 hours Code(s): E87.20 - ACIDOSIS, UNSPECIFIED (3) Weakness Current Visit: Yes Status: Acute Assessment & Plan: -2/2 to acidosis/hyponatremia -PT/OT eval for possible rehab stay Code(s): R53.1 - WEAKNESS (4) HLD (hyperlipidemia) Current Visit: Yes Status: Acute Assessment & Plan: -continue statin Code(s): E78.5 - HYPERLIPIDEMIA, UNSPECIFIED (5) CAD (coronary artery disease) Current Visit: Yes Status: Acute Assessment & Plan: -adds complexity- patient s/p pericardectomy with further damage to her heart, she follows with Dr. Mitchell OP -Monitor I&O strictly -Daily weights Code(s): I25.10 - ATHSCL HEART DISEASE OF [place] CORONARY ARTERY W/O ANG PCTRS (6) CHF (congestive heart failure) Current Visit: Yes Status: Acute Assessment & Plan: -No echo on file, [facility] -BNP -Strict I&O, daily weights -continue home meds, entresto hold until tomorrow Code(s): I50.9 - HEART FAILURE, UNSPECIFIED (7) Chronic renal failure Current Visit: Yes Status: Acute Assessment & Plan: -creat at 1.38, patient did receive contrast today with hydration pre/post -Continue to monitor renal/lytes -avoid ALEXIA/ARB/diuretics/NSAIDS -Will hold entresto today -consider neph consult if kidney function worsens (8) Wound of right lower extremity Current Visit: Yes Status: Acute Assessment & Plan: -Chronic wound x 2 years, podiatry following Dispo 2-3 days Code(s): S81.801A - UNSPECIFIED OPEN WOUND, RIGHT LOWER LEG, INITIAL ENCOUNTER Telemedicine Encounter - Telemedicine Encounter Telemedicine Encounter: The entirety of this encounter was performed via Telemedicine"
[2023-11-25] MEDS ORDERED: TYLENOL 325 MG PO PRN (17:15)
[2023-11-25] MEDS: Sodium Bicarbonate 50 MEQ/50 ML VIAL*** 150 MEQ in Dextrose 5%/Water IV Soln. 1000 ML 1... IV SCH (17:20)
[2023-11-25] MEDS ORDERED: TYLENOL EXTRA STRENGTH 500 MG PO PRN (17:44)
[2023-11-25] MEDS: ULTRAM 50 MG PO PRN (17:54)
[2023-11-25 17:57] LABS: Absolute Neutrophil Ct (ANC) 8.21 x10^3/uL (1.56-6.13); BASOPHIL % 0.3 % (0.1-1.2); Basophil (Absolute #) 0.03 x10^3/uL (0.01-0.08); Eosinophil % 1.4 % (0.7-5.8); Eosinophil (Absolute #) 0.15 x10^3/uL (0.04-0.36); Hematocrit 30.4 % (34.1-44.9); Hemoglobin 10.4 g/dL (11.2-15.7); IMMATURE GRAN # 0.04 x10^3u/L (0.001-0.031); IMMATURE GRAN % 0.4 % (0.001-0.429); Lymphocyte (Absolute #) 1.41 x10^3/uL (1.18-3.74); Lymphocytes % 13.3 % (19.3-51.7); Mean Cell Volume 89.1 fL (79.4-94.8); Mean Corpuscular Hemoglobin 30.5 pg (25.6-32.2); Mean Corpuscular Hgb Concent. 34.2 g/dL (32.2-35.5); Mean Platelet Volume 9.8 fL (9.4-12.3); Monocyte (Absolute #) 0.75 x10^3/uL (0.24-0.86); Monocytes % 7.1 % (4.7-12.5); Neutrophil % 77.5 % (34.0-71.1); Platelet Count 282 x10^3/uL (182-369); Red Blood Count 3.41 x10^6/uL (3.93-5.22); Red Cell Distribution Width 12.2 % (11.7-14.4); White Blood Count 10.6 x10^3/uL (3.98-10.04)
[2023-11-25 18:10] LABS: ALBUMIN 4.4 g/dL (3.5-5.0); ANION GAP 18.9 MEQ/L (5-15); BILIRUBIN,TOTAL 0.9 mg/dL (0.2-1.3); Calcium 10.8 mg/dL (8.4-10.2); Creatinine 1 1.33 mg/dL (0.52-1.04); EST GLOMERULAR FILTRATION RATE 38.2 ML/MIN; MAGNESIUM 1.6 mg/dL (1.6-2.3); Potassium 4.1 mmol/L (3.5-5.1); Total Protein 7.6 g/dL (6.3-8.2)
[2023-11-25] MEDS: xanAX 0.25 MG PO ONE (18:40)
[2023-11-25] MEDS: NORCO 5/325 MG PO PRN (20:15)
[2023-11-25] MEDS: Zofran 4 MG/2 ML VIAL IV PRN (20:16)
[2023-11-25] MEDS ORDERED: SILDENAFIL CITRATE 20 MG PO SCH (22:00)
[2023-11-25] MEDS: Pepcid 20 MG PO SCH (22:40)
[2023-11-25] MEDS: Apresoline 25 MG TABLET PO SCH (22:44)
[2023-11-26] MEDS: SILDENAFIL CITRATE PO SCH (00:10)
[2023-11-26] MEDS: Hydromorphone 1 mg/ml Injection IV ONE (04:03)
[2023-11-26 04:52] LABS: Absolute Neutrophil Ct (ANC) 5.75 x10^3/uL (1.56-6.13); BASOPHIL % 0.3 % (0.1-1.2); Basophil (Absolute #) 0.03 x10^3/uL (0.01-0.08); Eosinophil % 3.5 % (0.7-5.8); Eosinophil (Absolute #) 0.32 x10^3/uL (0.04-0.36); Hematocrit 24.2 % (34.1-44.9); Hemoglobin 8.2 g/dL (11.2-15.7); IMMATURE GRAN # 0.03 x10^3u/L (0.001-0.031); IMMATURE GRAN % 0.3 % (0.001-0.429); Lymphocyte (Absolute #) 1.87 x10^3/uL (1.18-3.74); Lymphocytes % 20.7 % (19.3-51.7); Mean Corpuscular Hemoglobin 30.5 pg (25.6-32.2); Mean Corpuscular Hgb Concent. 33.9 g/dL (32.2-35.5); Mean Platelet Volume 10.3 fL (9.4-12.3); Monocyte (Absolute #) 1.02 x10^3/uL (0.24-0.86); Monocytes % 11.3 % (4.7-12.5); Neutrophil % 63.9 % (34.0-71.1); Platelet Count 232 x10^3/uL (182-369); Red Blood Count 2.69 x10^6/uL (3.93-5.22); Red Cell Distribution Width 12.4 % (11.7-14.4)
[2023-11-26 05:17] LABS: ALBUMIN 3.4 g/dL (3.5-5.0); ANION GAP 11.1 MEQ/L (5-15); BILIRUBIN,TOTAL 0.5 mg/dL (0.2-1.3); Calcium 9.8 mg/dL (8.4-10.2); Creatinine 1 1.31 mg/dL (0.52-1.04); MAGNESIUM 1.7 mg/dL (1.6-2.3); Potassium 3.7 mmol/L (3.5-5.1); Total Protein 6.1 g/dL (6.3-8.2)
[2023-11-26 07:08] VITALS: RESP 16
--- NOTE | 2023-11-26 07:37 | PCM.NOTE ---
Date and Time: 11/26/23 0734 Subjective Assessment: is a 88 year old female patient with PMHX of cataracts, CHF, CAD(follows with Dr. Mitchell), hyperlipidemia, CKD (Dr. Hernandez), fibroids, anemia, skin CA, pericardectomy, cardiac stent 2005, and hysterectomy direct admit for evaluation of weakness, metabolic acidosis, and hyponatremia. Patient was recently admitted 11/16-11/18/23 for similar issue. She was transferred at that time to [facility] under the advisement of her director [place] sales Dr. Hernandez. Patient is a complicated case due to her history of pericardectomy/heart history and CKD. Patient states during her hospitalization at [facility] her Entresto was decreased. Her sodium on today's lab has improved to 129, her creat is at 1.38, and her CO2 level is at 15. The concern is fluid overload as the patient had attempted to have a CTA today with hydration and fragile heart history. She was unable to complete CTA due to infiltration of contrast into her arm. Plan is to start sodium bicarb drip and monitor closely. Patient lives home alone and may require rehab. 11/25/23: Labs reviewed, acidosis improving. Hyponatremia stable. Bicarb drip d/c'd, oral bicarb initiated. Objective Data Vital Signs: Vital Signs - 24 hr Temp Pulse Resp BP Pulse Ox 11/26/23 07:00 97.1 F 85 16 89/53 96 11/26/23 03:00 97.1 F 109 H 18 124/53 96 11/25/23 23:00 98.9 F 91 H 16 114/56 92 L 11/25/23 19:44 99.4 F 75 16 117/56 99 11/25/23 17:15 88 18 98 11/25/23 16:11 97.9 F 87 16 144/63 98 Pain Assessment - Last Documented Pain Intensity 10 Pain Scale Used [facility] Intake and Output: Intake & Output 11/23/23 11/24/23 11/25/23 11/26/23 11:59 11:59 11:59 11:59 Intake Total 1969 Balance 1969 Weight 55.7 kg Lab Results: Lab Results-Last 24 Hours 11/25/23 11/25/23 11/25/23 Range/Units 17:30 17:50 17:50 WBC 10.6 H (3.98-10.04) x10^3/uL RBC 3.41 L (3.93-5.22) x10^6/uL Hgb 10.4 L (11.2-15.7) g/dL Hct 30.4 L (34.1-44.9) % MCV 89.1 (79.4-94.8) fL MCH 30.5 (25.6-32.2) pg MCHC 34.2 (32.2-35.5) g/dL RDW 12.2 (11.7-14.4) % Plt Count 282 (182-369) x10^3/uL MPV 9.8 (9.4-12.3) fL Gran % 77.5 H (34.0-71.1) % Immature Gran % (Auto) 0.4 (0.001-0.429) % Nucleat RBC Rel Count 0.0 (0.00-0.2) % Eos # (Auto) 0.15 (0.04-0.36) x10^3/uL Immature Gran # (Auto) 0.04 H (0.001-0.031) x10^3u/L Absolute Lymphs (auto) 1.41 (1.18-3.74) x10^3/uL Absolute Monos (auto) 0.75 (0.24-0.86) x10^3/uL Absolute Nucleated RBC 0.00 (0.00-0.012) x10^3u/L Lymphocytes % 13.3 L (19.3-51.7) % Monocytes % 7.1 (4.7-12.5) % Eosinophils % 1.4 (0.7-5.8) % Basophils % 0.3 (0.1-1.2) % Absolute Granulocytes 8.21 H (1.56-6.13) x10^3/uL Basophils # 0.03 (0.01-0.08) x10^3/uL Sodium 130 L (135-145) mmol/L Potassium 4.1 (3.5-5.1) mmol/L Chloride 102 (98-107) mmol/L Carbon Dioxide 13 L* (22-30) mmol/L Anion Gap 18.9 H (5-15) MEQ/L BUN 22 H (7-17) mg/dL Creatinine 1.33 H (0.52-1.04) mg/dL Estimated GFR 38.2 ML/MIN Glucose 109 H (74-106) mg/dL Calcium 10.8 H (8.4-10.2) mg/dL Magnesium 1.6 (1.6-2.3) mg/dL Total Bilirubin 0.90 (0.2-1.3) mg/dL AST 40 H (14-36) U/L ALT 28 (0-35) U/L Alkaline Phosphatase 125 (38-126) U/L NT-Pro-B Natriuret Pep 1110 (<300) pg/mL Serum Total Protein 7.6 (6.3-8.2) g/dL Albumin 4.4 (3.5-5.0) g/dL 11/26/23 11/26/23 Range/Units 04:25 04:25 WBC 9.0 (3.98-10.04) x10^3/uL RBC 2.69 L (3.93-5.22) x10^6/uL Hgb 8.2 L D (11.2-15.7) g/dL Hct 24.2 L (34.1-44.9) % MCV 90.0 (79.4-94.8) fL MCH 30.5 (25.6-32.2) pg MCHC 33.9 (32.2-35.5) g/dL RDW 12.4 (11.7-14.4) % Plt Count 232 (182-369) x10^3/uL MPV 10.3 (9.4-12.3) fL Gran % 63.9 (34.0-71.1) % Immature Gran % (Auto) 0.3 (0.001-0.429) % Nucleat RBC Rel Count 0.0 (0.00-0.2) % Eos # (Auto) 0.32 (0.04-0.36) x10^3/uL Immature Gran # (Auto) 0.03 (0.001-0.031) x10^3u/L Absolute Lymphs (auto) 1.87 (1.18-3.74) x10^3/uL Absolute Monos (auto) 1.02 H (0.24-0.86) x10^3/uL Absolute Nucleated RBC 0.00 (0.00-0.012) x10^3u/L Lymphocytes % 20.7 (19.3-51.7) % Monocytes % 11.3 (4.7-12.5) % Eosinophils % 3.5 (0.7-5.8) % Basophils % 0.3 (0.1-1.2) % Absolute Granulocytes 5.75 (1.56-6.13) x10^3/uL Basophils # 0.03 (0.01-0.08) x10^3/uL Sodium 129 L (135-145) mmol/L Potassium 3.7 (3.5-5.1) mmol/L Chloride 100 (98-107) mmol/L Carbon Dioxide 21 L (22-30) mmol/L Anion Gap 11.1 (5-15) MEQ/L BUN 20 H (7-17) mg/dL Creatinine 1.31 H (0.52-1.04) mg/dL Estimated GFR 39.0 ML/MIN Glucose 100 (74-106) mg/dL Calcium 9.8 (8.4-10.2) mg/dL Magnesium 1.7 (1.6-2.3) mg/dL Total Bilirubin 0.50 (0.2-1.3) mg/dL AST 54 H (14-36) U/L ALT 24 (0-35) U/L Alkaline Phosphatase 91 (38-126) U/L NT-Pro-B Natriuret Pep (<300) pg/mL Serum Total Protein 6.1 L (6.3-8.2) g/dL Albumin 3.4 L (3.5-5.0) g/dL Multi-Disciplinary Progress Notes: Multi-Disciplinary Progress Notes 11/25/23 18:00 Respiratory Note by Miriam Aparicio RT assessment completed. No RT interventions needed at this time. Initialized on 11/25/23 18:00 - END OF NOTE Assessment/Plan (1) Hyponatremia Current Visit: Yes Status: Acute Assessment & Plan: -likely 2/2 to entresto - will hold tonight -improved from last visit now at 129 -will recheck CMP as pt had hydration prior to CTA today -fluid restriction 1.5L -sodium bicarb drip for acidosis -tele -Consider nephrology consult Code(s): E87.1 - HYPO-OSMOLALITY AND HYPONATREMIA (2) Metabolic acidosis Current Visit: Yes Status: Acute Assessment & Plan: -2/2 to CKD -bicarb drip started, will need to run slowly at 50ml/hr -monitor for fluid overload -tele -recheck BMP in 4 hours 11/25/23: -improving, d/c bicarb drip, change to PO -continue to monitor Code(s): E87.20 - ACIDOSIS, UNSPECIFIED (3) Weakness Current Visit: Yes Status: Acute Assessment & Plan: -2/2 to acidosis/hyponatremia -PT/OT eval for possible rehab stay Code(s): R53.1 - WEAKNESS (4) HLD (hyperlipidemia) Current Visit: Yes Status: Acute Assessment & Plan: -continue statin Code(s): E78.5 - HYPERLIPIDEMIA, UNSPECIFIED (5) CAD (coronary artery disease) Current Visit: Yes Status: Acute Assessment & Plan: -adds complexity- patient s/p pericardectomy with further damage to her heart, she follows with Dr. Mitchell OP -Monitor I&O strictly -Daily weights Code(s): I25.10 - ATHSCL HEART DISEASE OF [place] CORONARY ARTERY W/O ANG PCTRS (6) CHF (congestive heart failure) Current Visit: Yes Status: Acute Assessment & Plan: -No echo on file, [facility] -BNP -Strict I&O, daily weights -continue home meds, entresto hold until tomorrow Code(s): I50.9 - HEART FAILURE, UNSPECIFIED (7) Chronic renal failure Current Visit: Yes Status: Acute Assessment & Plan: -creat at 1.38, patient did receive contrast today with hydration pre/post -Continue to monitor renal/lytes -avoid ALEXIA/ARB/diuretics/NSAIDS -Will hold entresto today -consider neph consult if kidney function worsens (8) Wound of right lower extremity Current Visit: Yes Status: Acute Assessment & Plan: -Chronic wound x 2 years, podiatry following Dispo 2-3 days Code(s): E87.1 - HYPO-OSMOLALITY AND HYPONATREMIA (2) Metabolic acidosis Current Visit: Yes Status: Acute Code(s): E87.20 - ACIDOSIS, UNSPECIFIED (3) Weakness Current Visit: Yes Status: Acute Code(s): R53.1 - WEAKNESS (4) HLD (hyperlipidemia) Current Visit: Yes Status: Acute Code(s): E78.5 - HYPERLIPIDEMIA, UNSPECIFIED (5) CAD (coronary artery disease) Current Visit: Yes Status: Acute Code(s): I25.10 - ATHSCL HEART DISEASE OF [place] CORONARY ARTERY W/O ANG PCTRS (6) CHF (congestive heart failure) Current Visit: Yes Status: Acute Code(s): I50.9 - HEART FAILURE, UNSPECIFIED (7) Chronic renal failure Current Visit: Yes Status: Acute (8) Wound of right lower extremity Current Visit: Yes Status: Acute Code(s): S81.801A - UNSPECIFIED OPEN WOUND, RIGHT LOWER LEG, INITIAL ENCOUNTER
[2023-11-26] MEDS: ZOCOR 20MG PO SCH (09:51)
[2023-11-26] MEDS: ECOTRIN 81 MG PO SCH (09:51)
[2023-11-26] MEDS: ULTRAM 50 MG PO PRN (09:51)
[2023-11-26] MEDS: SODIUM BICARBONATE PO SCH (09:52)
[2023-11-26 11:51] VITALS: BP 105/51; PULSE 96; TEMP 97; O2SAT 94
--- NOTE | 2023-11-26 12:37 | PCM.DS ---
Discharge Summary Date of Admission: 11/25/23 15:58 Date of Discharge: 11/26/23 Admitting Physician: MIRNA FUNK MD Primary Care Provider: KORIN OCONNOR JAY Allergies Allergies amoxicillin [Amoxicillin] Allergy (Intermediate, Verified 11/25/23 15:45) facial swelling and flushed promethazine [From Phenergan] Allergy (Mild, Verified 11/25/23 15:45) metronidazole [From Flagyl] Allergy (Unknown, Verified 11/25/23 15:45) cant rememer Penicillins Allergy (Unknown, Verified 11/25/23 15:45) cant remember Sulfa (Sulfonamide Antibiotics) Allergy (Unknown, Verified 11/25/23 15:45) cant rememeber clindamycin Adverse Reaction (Verified 11/25/23 15:45) Diarrhea pt says it gave her cdiff levofloxacin [From Levaquin] Adverse Reaction (Verified 11/25/23 15:45) elevated blood pressure and agitation Hospital Summary - Hospital Course Hospital Course: is a 88 year old female patient with PMHX of cataracts, CHF, CAD(follows with Dr. Mitchell), hyperlipidemia, CKD (Dr. Hernandez), fibroids, anemia, skin CA, pericardectomy, cardiac stent 2005, and hysterectomy direct admit for evaluation of weakness, metabolic acidosis, and hyponatremia. Patient was recently admitted 11/16-11/18/23 for similar issue. She was transferred at that time to [facility] under the advisement of her electronic funds transfer coordinator Dr. Hernandez. Patient is a complicated case due to her history of pericardectomy/heart history and CKD. Patient states during her hospitalization at [facility] her Entresto was decreased. Her sodium on today's lab has improved to 129, her creat is at 1.38, and her CO2 level is at 15. The concern is fluid overload as the patient had attempted to have a CTA today with hydration and fragile heart history. She was unable to complete CTA due to infiltration of contrast into her arm. Hyponatremia stable. Bicarb drip d/c'd, oral bicarb initiated. Discussed case with nephrology Evelina Hurtado NP who recommends urea 15g BID and 20g of protein TID - will need CMP CBC and follow up on 12/05/23 (appt made). She will discharge to rehab for strengthening. Podiatry has cleared patient for discharge as well. She has been accepted to [facility]. Discharge Note New Diagnosis: Hyponatremia New Medications: Urea 15g BID Follow Up: Neph/cards/pod/pcp Latest Assessment & Plan (1) Hyponatremia Current Visit: Yes Status: Acute Assessment & Plan: -likely 2/2 to entresto - will hold tonight -improved from last visit now at 129 -will recheck CMP as pt had hydration prior to CTA today -fluid restriction 1.5L -sodium bicarb drip for acidosis -tele -Consider nephrology consult 11/25: -Discussed case with neph as stated above, plan for urea 15g bid, close follow up with neph Code(s): E87.1 - HYPO-OSMOLALITY AND HYPONATREMIA (2) Metabolic acidosis Current Visit: Yes Status: Acute Assessment & Plan: -2/2 to CKD -bicarb drip started, will need to run slowly at 50ml/hr -monitor for fluid overload -tele -recheck BMP in 4 hours 11/25/23: -improving, d/c bicarb drip, change to PO -continue to monitor 11/25: -improving - per nephrology will send on 325mg bid oral bicarb - follow up 12/04 Code(s): E87.20 - ACIDOSIS, UNSPECIFIED (3) Weakness Current Visit: Yes Status: Acute Assessment & Plan: -2/2 to acidosis/hyponatremia -PT/OT eval for possible rehab stay 11/25: -Dc to [facility] Code(s): R53.1 - WEAKNESS (4) HLD (hyperlipidemia) Current Visit: Yes Status: Acute Assessment & Plan: -continue statin Code(s): E78.5 - HYPERLIPIDEMIA, UNSPECIFIED (5) CAD (coronary artery disease) Current Visit: Yes Status: Acute Assessment & Plan: -adds complexity- patient s/p pericardectomy with further damage to her heart, she follows with Dr. Mitchell OP -Monitor I&O strictly -Daily weights Code(s): I25.10 - ATHSCL HEART DISEASE OF [place] CORONARY ARTERY W/O ANG PCTRS (6) CHF (congestive heart failure) Current Visit: Yes Status: Acute Assessment & Plan: -No echo on file, [facility] -BNP -Strict I&O, daily weights -continue home meds, entresto hold until tomorrow Code(s): I50.9 - HEART FAILURE, UNSPECIFIED (7) Chronic renal failure Current Visit: Yes Status: Acute Assessment & Plan: -creat at 1.38, patient did receive contrast today with hydration pre/post -Continue to monitor renal/lytes -avoid ALEXIA/ARB/diuretics/NSAIDS -Will hold entresto today -consider neph consult if kidney function worsens (8) Wound of right lower extremity Current Visit: Yes Status: Acute Assessment & Plan: -Chronic wound x 2 years, podiatry following I spent 35 minutes [id number] with the patient on the day of discharge performing discharge exam, discussing hospital stay and discharge instructions with patient and caregivers, preparation of discharge records, prescriptions & referral forms and addressing any questions/concerns the patient had as documented above. - Vitals & Intake/Output Vital Signs: Vital Signs Temperature 97.0 F 11/26/23 11:00 Pulse Rate 96 H 11/26/23 11:00 Respiratory Rate 16 11/26/23 11:00 Blood Pressure 105/51 11/26/23 11:00 O2 Sat by Pulse Oximetry 94 L 11/26/23 11:00 Intake & Output: Intake & Output 11/24/23 11/25/23 11/26/23 11/27/23 11:59 11:59 11:59 11:59 Intake Total 2088 Balance 2088 Weight 55.7 kg - Lab Result Diagrams: 11/26/23 04:25 11/26/23 04:25 Lab Results-Last 24 Hrs: Lab Results-Last 24 Hours 11/25/23 11/25/23 11/25/23 Range/Units 17:30 17:50 17:50 WBC 10.6 H (3.98-10.04) x10^3/uL RBC 3.41 L (3.93-5.22) x10^6/uL Hgb 10.4 L (11.2-15.7) g/dL Hct 30.4 L (34.1-44.9) % MCV 89.1 (79.4-94.8) fL MCH 30.5 (25.6-32.2) pg MCHC 34.2 (32.2-35.5) g/dL RDW 12.2 (11.7-14.4) % Plt Count 282 (182-369) x10^3/uL MPV 9.8 (9.4-12.3) fL Gran % 77.5 H (34.0-71.1) % Immature Gran % (Auto) 0.4 (0.001-0.429) % Nucleat RBC Rel Count 0.0 (0.00-0.2) % Eos # (Auto) 0.15 (0.04-0.36) x10^3/uL Immature Gran # (Auto) 0.04 H (0.001-0.031) x10^3u/L Absolute Lymphs (auto) 1.41 (1.18-3.74) x10^3/uL Absolute Monos (auto) 0.75 (0.24-0.86) x10^3/uL Absolute Nucleated RBC 0.00 (0.00-0.012) x10^3u/L Lymphocytes % 13.3 L (19.3-51.7) % Monocytes % 7.1 (4.7-12.5) % Eosinophils % 1.4 (0.7-5.8) % Basophils % 0.3 (0.1-1.2) % Absolute Granulocytes 8.21 H (1.56-6.13) x10^3/uL Basophils # 0.03 (0.01-0.08) x10^3/uL Sodium 130 L (135-145) mmol/L Potassium 4.1 (3.5-5.1) mmol/L Chloride 102 (98-107) mmol/L Carbon Dioxide 13 L* (22-30) mmol/L Anion Gap 18.9 H (5-15) MEQ/L BUN 22 H (7-17) mg/dL Creatinine 1.33 H (0.52-1.04) mg/dL Estimated GFR 38.2 ML/MIN Glucose 109 H (74-106) mg/dL Calcium 10.8 H (8.4-10.2) mg/dL Magnesium 1.6 (1.6-2.3) mg/dL Total Bilirubin 0.90 (0.2-1.3) mg/dL AST 40 H (14-36) U/L ALT 28 (0-35) U/L Alkaline Phosphatase 125 (38-126) U/L NT-Pro-B Natriuret Pep 1110 (<300) pg/mL Serum Total Protein 7.6 (6.3-8.2) g/dL Albumin 4.4 (3.5-5.0) g/dL 11/26/23 11/26/23 Range/Units 04:25 04:25 WBC 9.0 (3.98-10.04) x10^3/uL RBC 2.69 L (3.93-5.22) x10^6/uL Hgb 8.2 L D (11.2-15.7) g/dL Hct 24.2 L (34.1-44.9) % MCV 90.0 (79.4-94.8) fL MCH 30.5 (25.6-32.2) pg MCHC 33.9 (32.2-35.5) g/dL RDW 12.4 (11.7-14.4) % Plt Count 232 (182-369) x10^3/uL MPV 10.3 (9.4-12.3) fL Gran % 63.9 (34.0-71.1) % Immature Gran % (Auto) 0.3 (0.001-0.429) % Nucleat RBC Rel Count 0.0 (0.00-0.2) % Eos # (Auto) 0.32 (0.04-0.36) x10^3/uL Immature Gran # (Auto) 0.03 (0.001-0.031) x10^3u/L Absolute Lymphs (auto) 1.87 (1.18-3.74) x10^3/uL Absolute Monos (auto) 1.02 H (0.24-0.86) x10^3/uL Absolute Nucleated RBC 0.00 (0.00-0.012) x10^3u/L Lymphocytes % 20.7 (19.3-51.7) % Monocytes % 11.3 (4.7-12.5) % Eosinophils % 3.5 (0.7-5.8) % Basophils % 0.3 (0.1-1.2) % Absolute Granulocytes 5.75 (1.56-6.13) x10^3/uL Basophils # 0.03 (0.01-0.08) x10^3/uL Sodium 129 L (135-145) mmol/L Potassium 3.7 (3.5-5.1) mmol/L Chloride 100 (98-107) mmol/L Carbon Dioxide 21 L (22-30) mmol/L Anion Gap 11.1 (5-15) MEQ/L BUN 20 H (7-17) mg/dL Creatinine 1.31 H (0.52-1.04) mg/dL Estimated GFR 39.0 ML/MIN Glucose 100 (74-106) mg/dL Calcium 9.8 (8.4-10.2) mg/dL Magnesium 1.7 (1.6-2.3) mg/dL Total Bilirubin 0.50 (0.2-1.3) mg/dL AST 54 H (14-36) U/L ALT 24 (0-35) U/L Alkaline Phosphatase 91 (38-126) U/L NT-Pro-B Natriuret Pep (<300) pg/mL Serum Total Protein 6.1 L (6.3-8.2) g/dL Albumin 3.4 L (3.5-5.0) g/dL - Procedures and Test Procedures and Tests throughout Hospitalization: Therapy Orders & Screens 11/25/23 17:15 Respiratory Therapy Consult ONCE Comment: Reason For Exam: Diagnosis: hyponatremia, acidosis OT Eval and Treat (MD Order) ONCE Comment: Physician Instructions: Reason For Exam: Diagnosis: hyponatremia, acidosis Discharge Exam General Appearance: no apparent distress Neurologic Exam: alert, oriented x 3, cooperative Eye Exam: PERRL Ears, Nose, Throat Exam: normal ENT inspection Neck Exam: normal inspection Respiratory Exam: normal breath sounds, lungs clear Cardiovascular Exam: regular rate/rhythm, normal heart sounds Gastrointestinal/Abdomen Exam: soft, normal bowel sounds Pelvic Exam: deferred Rectal Exam: deferred Back Exam: normal inspection Extremity Exam: other (RLE wound - chronic) Final Diagnosis/Problem List - Final Discharge Diagnosis/Problem (1) Hyponatremia Current Visit: Yes Status: Chronic Code(s): E87.1 - HYPO-OSMOLALITY AND HYPONATREMIA (2) Metabolic acidosis Current Visit: Yes Status: Chronic Code(s): E87.20 - ACIDOSIS, UNSPECIFIED (3) Weakness Current Visit: Yes Status: Chronic Code(s): R53.1 - WEAKNESS (4) HLD (hyperlipidemia) Current Visit: Yes Status: Chronic Code(s): E78.5 - HYPERLIPIDEMIA, UNSPECIFIED (5) CAD (coronary artery disease) Current Visit: Yes Status: Chronic Code(s): I25.10 - ATHSCL HEART DISEASE OF [place] CORONARY ARTERY W/O ANG PCTRS (6) CHF (congestive heart failure) Current Visit: Yes Status: Chronic Code(s): I50.9 - HEART FAILURE, UNSPECIFIED (7) Chronic renal failure Current Visit: Yes Status: Chronic (8) Wound of right lower extremity Current Visit: Yes Status: Chronic Code(s): S81.801A - UNSPECIFIED OPEN WOUND, RIGHT LOWER LEG, INITIAL ENCOUNTER - Discharge Disposition: DC TO ANY "OTHER" SENIOR CARE Condition: Stable Prescriptions: New Sodium Bicarbonate 325 mg PO BID tablet Urea [Ure-Na] 15 gm PO BID PRN 30 Days #60 pkt Tramadol HCl 50 mg [Ultram 50 mg] 50 mg PO QIDPRN PRN 3 Days #12 tablet PRN Reason: Pain Continue Simvastatin 20Mg [Zocor 20Mg] 20 mg PO DAILY Aspirin [Aspirin EC] 81 mg PO DAILY Sildenafil Citrate 20 mg PO TID Hydralazine HCl 25 mg PO BID Famotidine 20 mg PO BID Acetaminophen [Tylenol Extra Strength] 1,000 mg PO Q6HPRN PRN PRN Reason: Pain Changed Sacubitril/Valsartan [Entresto 49 mg-51 mg Tablet] 0.5 tab PO DAILY #0 Follow up with: MIRELLA FERRER DPM [ACTIVE STAFF] - 12/02/23 2:00 pm KORIN OCONNOR MD [Primary Care Provider] - LAURA GILBERT MD [CONSULTING PHYSICIAN] - 12/02/23 3:50 pm (AT [facility] )
--- NOTE | 2023-11-26 16:43 | PCM.CONS ---
Podiatry HPI - Consult Consulting Provider: MIRELLA FERRER DPM - HPI History of Present Illness: wound check Medications & Allergies Home Medications: Home Medication List Aspirin [Aspirin EC] 81 mg PO DAILY 07/06/21 [History Confirmed 11/25/23] Simvastatin 20Mg [Zocor 20Mg] 20 mg PO DAILY 07/06/21 [History Confirmed 11/25/23] Acetaminophen [Tylenol Extra Strength] 1,000 mg PO Q6HPRN PRN 11/25/23 [History Confirmed 11/25/23] Famotidine 20 mg PO BID 11/25/23 [History Confirmed 11/25/23] Hydralazine HCl 25 mg PO BID 11/25/23 [History Confirmed 11/25/23] Sildenafil Citrate 20 mg PO TID 11/25/23 [History Confirmed 11/25/23] Sacubitril/Valsartan [Entresto 49 mg-51 mg Tablet] 0.5 tab PO DAILY #0 11/26/23 [Rx Confirmed 11/25/23] Sodium Bicarbonate 325 mg PO BID tablet 11/26/23 [Rx] Tramadol HCl 50 mg [Ultram 50 mg] 50 mg PO QIDPRN PRN 3 Days #12 tablet 11/26/23 [Rx] Urea [Ure-Na] 15 gm PO BID PRN 30 Days #60 pkt 11/26/23 [Rx] Allergies/Adverse Reactions: Allergies Allergy/AdvReac Type Severity Reaction Status Date / Time amoxicillin [Amoxicillin] Allergy Intermediate facial Verified 11/25/23 15:45 swelling and flushed promethazine [From Phenergan] Allergy Mild Verified 11/25/23 15:45 metronidazole [From Flagyl] Allergy Unknown Verified 11/25/23 15:45 Penicillins Allergy Unknown Verified 11/25/23 15:45 Sulfa (Sulfonamide Allergy Unknown Verified 11/25/23 15:45 Antibiotics) clindamycin AdvReac Diarrhea Verified 11/25/23 15:45 levofloxacin [From Levaquin] AdvReac elevated Verified 11/25/23 15:45 blood pressure and agitation - Past Medical History Past Medical History: Yes Neurological History: No Pertinent History ENT History: Cataracts Cardiac History: Congestive Heart Failure, Coronary Artery Disease, High Cholesterol, Other Respiratory History: No Pertinent History Endocrine Medical History: No Pertinent History Musculoskelatal History: No Pertinent History GI Medical History: No Pertinent History, Other History: Other Pyscho-Social History: No Pertinent History Reproductive Disorders: Fibroids Comment: Skin cancer on RLE; began radiation in 2021, hx cdiff, pericardicectomy, stent placed 2005, pulmonary HTN - Past Surgical History Past Surgical History: Yes Neuro Surgical History: No Pertinent History Cardiac History: Cardiac Catheterization, Cardiac Stent, Other Respiratory Surgery: No Pertinent History GI Surgical History: Appendectomy Genitourinary Surgical Hx: No Pertinent History Musculskeletal Surgical Hx: No Pertinent History Female Surgical History: Hysterectomy Other Surgical History: skin cancer removal on right leg, pericardicectomy, stent placed 2005 - Social History Smoking Status: Never smoker Exposure to second hand smoke: No Alcohol: None Drug Use: none - Social Determinants of Health Will the patient participate in the screening: Yes Do you worry about a steady place to live?: No Do you have any problems with any of the following?: No known problems In the past 12 months,have you had to go without utilities?: No Have you or anyone in your house had to go without enough: No Transportation Issues: No Has anyone in your support network made you feel unsafe?: No Does the patient want assistance with any of the above?: No Physical Exam - Narrative Narrative Physical Exam: Podiatry Physical Exam Results - Labs Lab/Micro Results: Lab Results-Last 24 Hours 11/25/23 11/25/23 11/25/23 Range/Units 17:30 17:50 17:50 WBC 10.6 H (3.98-10.04) x10^3/uL RBC 3.41 L (3.93-5.22) x10^6/uL Hgb 10.4 L (11.2-15.7) g/dL Hct 30.4 L (34.1-44.9) % MCV 89.1 (79.4-94.8) fL MCH 30.5 (25.6-32.2) pg MCHC 34.2 (32.2-35.5) g/dL RDW 12.2 (11.7-14.4) % Plt Count 282 (182-369) x10^3/uL MPV 9.8 (9.4-12.3) fL Gran % 77.5 H (34.0-71.1) % Immature Gran % (Auto) 0.4 (0.001-0.429) % Nucleat RBC Rel Count 0.0 (0.00-0.2) % Eos # (Auto) 0.15 (0.04-0.36) x10^3/uL Immature Gran # (Auto) 0.04 H (0.001-0.031) x10^3u/L Absolute Lymphs (auto) 1.41 (1.18-3.74) x10^3/uL Absolute Monos (auto) 0.75 (0.24-0.86) x10^3/uL Absolute Nucleated RBC 0.00 (0.00-0.012) x10^3u/L Lymphocytes % 13.3 L (19.3-51.7) % Monocytes % 7.1 (4.7-12.5) % Eosinophils % 1.4 (0.7-5.8) % Basophils % 0.3 (0.1-1.2) % Absolute Granulocytes 8.21 H (1.56-6.13) x10^3/uL Basophils # 0.03 (0.01-0.08) x10^3/uL Sodium 130 L (135-145) mmol/L Potassium 4.1 (3.5-5.1) mmol/L Chloride 102 (98-107) mmol/L Carbon Dioxide 13 L* (22-30) mmol/L Anion Gap 18.9 H (5-15) MEQ/L BUN 22 H (7-17) mg/dL Creatinine 1.33 H (0.52-1.04) mg/dL Estimated GFR 38.2 ML/MIN Glucose 109 H (74-106) mg/dL Calcium 10.8 H (8.4-10.2) mg/dL Magnesium 1.6 (1.6-2.3) mg/dL Total Bilirubin 0.90 (0.2-1.3) mg/dL AST 40 H (14-36) U/L ALT 28 (0-35) U/L Alkaline Phosphatase 125 (38-126) U/L NT-Pro-B Natriuret Pep 1110 (<300) pg/mL Serum Total Protein 7.6 (6.3-8.2) g/dL Albumin 4.4 (3.5-5.0) g/dL 11/26/23 11/26/23 Range/Units 04:25 04:25 WBC 9.0 (3.98-10.04) x10^3/uL RBC 2.69 L (3.93-5.22) x10^6/uL Hgb 8.2 L D (11.2-15.7) g/dL Hct 24.2 L (34.1-44.9) % MCV 90.0 (79.4-94.8) fL MCH 30.5 (25.6-32.2) pg MCHC 33.9 (32.2-35.5) g/dL RDW 12.4 (11.7-14.4) % Plt Count 232 (182-369) x10^3/uL MPV 10.3 (9.4-12.3) fL Gran % 63.9 (34.0-71.1) % Immature Gran % (Auto) 0.3 (0.001-0.429) % Nucleat RBC Rel Count 0.0 (0.00-0.2) % Eos # (Auto) 0.32 (0.04-0.36) x10^3/uL Immature Gran # (Auto) 0.03 (0.001-0.031) x10^3u/L Absolute Lymphs (auto) 1.87 (1.18-3.74) x10^3/uL Absolute Monos (auto) 1.02 H (0.24-0.86) x10^3/uL Absolute Nucleated RBC 0.00 (0.00-0.012) x10^3u/L Lymphocytes % 20.7 (19.3-51.7) % Monocytes % 11.3 (4.7-12.5) % Eosinophils % 3.5 (0.7-5.8) % Basophils % 0.3 (0.1-1.2) % Absolute Granulocytes 5.75 (1.56-6.13) x10^3/uL Basophils # 0.03 (0.01-0.08) x10^3/uL Sodium 129 L (135-145) mmol/L Potassium 3.7 (3.5-5.1) mmol/L Chloride 100 (98-107) mmol/L Carbon Dioxide 21 L (22-30) mmol/L Anion Gap 11.1 (5-15) MEQ/L BUN 20 H (7-17) mg/dL Creatinine 1.31 H (0.52-1.04) mg/dL Estimated GFR 39.0 ML/MIN Glucose 100 (74-106) mg/dL Calcium 9.8 (8.4-10.2) mg/dL Magnesium 1.7 (1.6-2.3) mg/dL Total Bilirubin 0.50 (0.2-1.3) mg/dL AST 54 H (14-36) U/L ALT 24 (0-35) U/L Alkaline Phosphatase 91 (38-126) U/L NT-Pro-B Natriuret Pep (<300) pg/mL Serum Total Protein 6.1 L (6.3-8.2) g/dL Albumin 3.4 L (3.5-5.0) g/dL Assessment/Plan (1) Cellulitis Status: Acute Assessment & Plan: patient examination and evaluation CTA cancelled secondary to line failure Weakness concern and discussion given patients CO2 and and worsening creatinine Patient likely requires Rehab due to generalized weakness Unna boot applied right wound appears stable and free of infection at this time Culture obtained Will follow Code(s): L03.90 - CELLULITIS, UNSPECIFIED (2) Cellulitis of right lower extremity Status: Acute Code(s): L03.115 - CELLULITIS OF RIGHT LOWER LIMB (3) Ulcer of right lower extremity Status: Acute Code(s): L97.919 - NON-PRS CHRONIC ULC UNSP PRT OF R LOW LEG W UNSP SEVERITY (4) Wound of right lower extremity Status: Acute Code(s): S81.801A - UNSPECIFIED OPEN WOUND, RIGHT LOWER LEG, INITIAL ENCOUNTER (5) CHF (congestive heart failure) Status: Chronic Code(s): I50.9 - HEART FAILURE, UNSPECIFIED (6) Hyponatremia Status: Chronic Code(s): E87.1 - HYPO-OSMOLALITY AND HYPONATREMIA (7) Weakness Status: Chronic Code(s): R53.1 - WEAKNESS (8) Wound of right lower extremity Status: Chronic Code(s): S81.801A - UNSPECIFIED OPEN WOUND, RIGHT LOWER LEG, INITIAL ENCOUNTER
== END 2023-11-26 13:45 ==
LOC: MED SURG 15:58
PROVIDERS: ADMIT Internal Medicine; ATTEND Internal Medicine
DX: E87.1 Hypo-osmolality and hyponatremia (principal); L03.115 Cellulitis of right lower limb; L97.919 Non-pressure chronic ulcer of unspecified part of right lower leg with unspecified severity; S81.801A Unspecified open wound, right lower leg, initial encounter; I11.0 Hypertensive heart disease with heart failure; I50.9 Heart failure, unspecified; R53.1 Weakness; Z85.828 Personal history of other malignant neoplasm of skin; E87.20 Acidosis, unspecified; E53.1 Pyridoxine deficiency; E78.5 Hyperlipidemia, unspecified; I25.10 Atherosclerotic heart disease of native coronary artery without angina pectoris; N17.9 Acute kidney failure, unspecified; Z79.899 Other long term (current) drug therapy
CPT/HCPCS: 29580; 36415; 80053; 83735; 83880; 85025; 87070; 93268; 99222; G0378; Q3014; J1170; J2405; A9270-GY